=== PATIENT | female | born 1950 | race Caucasian/White ===

== ENCOUNTER 2025-09-14 09:36 | Outpatient (REF) | payer MEDICARE, SELFPAY ==
--- NOTE | ~2025-09-14 | XR_ITS ---
EXAMINATION: XR CERVICAL SPINE CLINICAL INFORMATION: M50.90 - Cervical disc disorder, unspecified, unspecified cervical region COMPARISON: None available. TECHNIQUE: Lateral views in neutral, flexion and extension position. AP view. FINDINGS: Craniocervical junction is intact with normal alignment. Metallic plate placed anteriorly and anchored to the vertebral bodies from C4 C7. Grade 1 anterolisthesis L3-4 in neutral position which persists in flexion and extension position. No lytic or blastic lesions. Multilevel facet joint hypertrophy. XR/XR cervical spine 4V IMPRESSION: Status post ACDF C4 C7. Grade 1 anterolisthesis C3-4 without gross instability. Electronically signed by: Clive Avery MD 09/14/2025 11:50 AM EDT
--- OUTSIDE RECORDS SUMMARY | 2025-09-14 13:06 | XMS_ITS | Data Portability ---
Author Organization BERTHA Sung [facility], [address] Address [address] [place] [address] Assessment No assessment recorded. Plan of Treatment Reminders Order Date Submit Date Provider Last Modified By Organization Details Last Modified Time Details Appointments None record ed. Lab None record ed. Referral None record ed. Procedures None record ed. Surgeries None record ed. Imaging XR, toe(s) , 2 or more view 023 04/05/20 23 [facility], [address] [place], [address], 13:51:25 Medication Orders None record ed. Patient TargetsNo targets recorded. Patient InstructionsNo instructions recorded. Reason for Referral None Reported. Results Created Date Observation Date Name Description Value Unit Range Abnormal Flag Note LastModifiedBy Organization Detail LastModifiedTime 04/05/20 23 04/05/2023 XR, toe(s ), 2 or more view No observ ation record ed. [email or web address] [facility] [address] [place], [address], 04/05/2023 14:30:44 04/06/20 23 XR, toe(s ), 2 or more view No observ ation record ed. [email or web address] [facility] [address] [place], [address], 04/06/2023 09:08:26 Result Notes None recorded. Problems Name Problem SNOMED Code Status Onset Date Resolution Date Notes Provider Name and Address Organization Details Recorded Time Depressive disorder 12390279 Active 2022 BER[facility]A [facility] 3 12:04:52 Arthritis 2824887 Active 2022 GOLDEN mandujano, [place] - [facility] 3 12:05:06 Hyperlipidemia 80840137 Active 2022 GOLDEN mandujano, [place] - [facility] 3 12:05:16 Problem Notes None recorded. Procedures Surgical History Date Name Laterality Status Provider Name and Address Organization Details Recorded Time total knee replacement completed GOLDEN CARDENAS PA - [facility] 04/05/2023 12:06:47 Carpal tunnel surgery completed [facility] - [facility] 04/05/2023 12:06:53 Imaging Results None recorded. Procedure Notes None recorded. Medical Equipment None Reported. Allergies Allergen ID Allergen Name Allergen Category Reaction Reaction Severity Criticality Documentation Date Start Date Code Code System Note Provider Name and Address Organization Details Recorded Time 263348 Norpramin medicatio n Not available Not available Not available 04/05/202398245 1 RxNorm GOLDEN mandujano, [place] - [facility] 3 12:03:05 Medications Name Sig Start Date Stop Date Status Note LastModified by Organization Details LastModified Time quetiapine 25 mg tablet active Not Available Not Available Not Available atorvastati n 40 mg tablet active Not Available Not Available Not Available gabapentin 600 mg tablet active Not Available Not Available Not Available triamcinolo ne acetonide 0.5 % topical cream APPLY TOPICALLY TO UPPER ARM EVERY 8 HOURS active Not Available Not Available No t Available azithromyci n 250 mg tablet 04/05 completed Not Available Not Available Not Available prednisone 20 mg tablet TAKE 3 TABLETS BY MOUTH DAILY FOR 5 DAYS THEN TAKE 2 TABLETS BY MOUTH DAILY FOR 5 DAYS THEN TAKE 1 TABLET BY MOUTH DAILY FOR 5 DAYS 04/05 completed Not Available Not Available Not Available amoxicillin 500 mg tablet TAKE 4 TABLETS BY MOUTH 1 HOUR BEFORE DENTAL APPOINTME NT 04/05 completed Not Available Not Available Not Available hydroxyzine HCl 25 mg tablet TAKE 1 TABLET BY MOUTH AT NIGHT AND IN THE MORNING NEEDED active Not Available Not Available No t Available epinephrine 0.3 mg/0.3 mL injection, auto-inject or active Not Available Not Available Not Available fluocinonid e 0.05 % topical solution APPLY TOPICALLY TO THE AFFECTED AREA TWICE DAILY FOR 2 WEEKS 04/05 completed Not Available Not Available Not Available scopolamine 1 mg over 3 days transdermal patch APPLY 1 PATCH TOPICALLY TO THE SKIN EVERY 72 HOURS active Not Available Not Available No t Available ciclopirox 1 % shampoo LATHER ON SCALP AND LET SIT FOR 5 MINUTES THEN WASH OFF. USE DAILY active Not Available Not Available No t Available bupropion HCl XL 300 mg 24 hr tablet, extended release active Not Available Not Available Not Available clobetasol 0.05 % shampoo APPLY TO DRY SCALP FOR 10 MINUTES THEN ADD WATER, LATHER AND RINSE OFF. USE TWO TIMES A DAY NEEDED active Not Available Not Available No t Available mirtazapine 7.5 mg tablet 04/05 completed Not Available Not Available Not Available duloxetine 30 mg capsule,del ayed release active Not Available Not Available Not Available duloxetine 60 mg capsule,del ayed release active Not Available Not Available Not Available chlorhexidi ne gluconate 0.12 % mouthwash active Not Available Not Available No t Available Vitals Date Recorded Body height Body mass index (BMI) Body weight Body temperature Respiratory rate Heart rate Oxygen saturation Oxygen saturation in Arterial blood by Pulse oximetry Systolic And Diastolic Provider Name and Address Organization Details Last Updated DateTime 3 157.48 cm 27.4 kg/m2 73492.8 6 g 98.2 [degF] 18 /min 68 /min 97 % 97 % 135/84 mm[Hg] GOLDEN Frye PA - [facility] 12:08:23 Social History Question Answer Notes LastModified by Terabitzat ion Details LastModified Time Tobacco Smoking Status Never Smoker GOLDEN mandujano PA - [facility] 04/05/2023 12:06:11 What Is Your Water Source? City Information not available 04/05/2023 What Is Your Heat Source? Other Information not available 04/05/2023 Have You Had Direct Contact, Or Contact During Intimacy, With Monkeypox Rash, Scabs, Or Body Fluids From A Person With Monkeypox? No Information not available 04/05/2023 Have You Recently Traveled Abroad? No Information not available 04/05/2023 Sex: Unknown Functional Status Question Answer Note LastModified by Organizat ion Details LastModified Time Do you use any illicit or recreational drugs? No Information not available 04/05/2023 Do you or have you ever used any other forms of tobacco or nicotine? No Information not available 04/05/2023 What is your level of alcohol consumption? None Information not available 04/05/2023 Mental Status None recorded. Family History Relationship Description Onset Age of this Age Resolved Age Notes LastModified by Organization Details LastModified Time Brother Acute stroke Not available 04/05/2023 12:05:49 Father Arthritis Not avai lable 04/05/2023 12:06:02 Mother Arthritis Not avai lable 04/05/2023 12:06:02 Medical History No medical history recorded. Gynecological HistoryNo gynecological history recorded. Obstetrics History GPAL:G 0 P 0 0 0 0 Past Encounters Encounter ID Performer Location Encounter Start Date Encounter Closed Date Diagnosis/Indication Diagnosis SNOMED-CT Code Diagnosis ICD10 Code Diagnosis IMO Codes Diagnosis Note [id number] [facility] [address] [place] [address] 12/23/2017 09:27:16 12/23/2017 10:10:41 [id number] [address] [place] [address] 08/04/2022 10:14:13 08/04/2022 12:12:34 [id number] [address] [place] [address] 09/30/2019 14:08:49 09/30/2019 14:31:52 [id number] [address] [place] [address] 04/16/2022 11:00:26 04/16/2022 12:55:50 [id number] Maria Espinosa MD [address] [place] [address] 04/05/2023 09:52:04 04/05/2023 13:07:09 Pain of toe of left foot 4728026481 78851 M79.675 Initial reading of the Xray shows no acute fractureYo ur x-ray will be reviewed by a radiologis t. You will be notified of any discrepanc ies between findings discussed at your visit today and the radiology interpreta tion.Sugge st rest, Ice and elevate the foot.You can take either ibuprofen or tylenol for pain as directedTh ere could be bleeding under the nail which has now coagulated . this may be causing the pain and will get better with elevation, Ibuprofen and time Health Concerns Section Related Observation LastModified by Organization Detai ls LastModified Time None Recorded Concern Status LastModified by Organization Details LastModified Time None Recorded Advance Directives Directive None Recorded Payers Insurance Date Sequence Insurance Name Policy Number Policy Martins Covered Member ID Martins Member ID Guarantor Name 04/05/2023 1 [place] [employer] Patti Devine [id number] Patti Devine 04/05/2023 2 A[employer] (MEDICARE SUPPLEMENT) Patti Devine [id number] Patti Devine Notes Date Note Type Note Provider Name and Address Organization Details Recorded Time 04/05/2023 text/html ToesReported by PatientHPIFor location, patient reportsleft. For quality, patient reportssharp. For severity, patient reportsmoderate. For timing, patient reportsacute. For aggravating factors, patient reportswalking. Maria Espinosa MD [address] [place], [address], [place] - [facility] 04/05/2023 13:11:26 OBGyn Episode No OBEpisode recorded.
--- OUTSIDE RECORDS SUMMARY | 2025-09-14 13:06 | XMS_ITS | Data Portability ---
Author Organization [place] [facility] Shayla Shepherd [address] [place] Address [address] [place] [address] Care Team Providers Care Cap And Stud Machine Operator Name Role Phone RHEA PADRON Referring Provider Assessment Encounter Date Assessment Date Assessment LastModified [...] for repeat assessment for injection efficacy check [email or web address] Not available 05/25/2024 11:07:02 08/03/2024 08/03/2024 The [...] physical examination, tests/diagnostic imaging, and treatment plan [email or web address] Not available 08/03/2024 11:13:07 11/09/2024 11/09/2024 73-year-old [...] may be helpful for control of swelling. [id number] anti-inflammator y medications with appropriate GI precautions [...] 3 view 2023 024 [email or web address] [facility] [place] [facility], [address], [place], [address], 13:57:22 XR, foot, 3 or more view 2023 024 [email or web address] [facility] [place] [facility], [address], [place], [address], 12:30:51 Medication Orders meloxicam 15 mg tablet 2023 024 [facility], [address] [place], [place], [id number], 4 13:52:33 lidocaine (PF) 10 mg/mL (1 %) injection solution 2023 024 [facility]97241, [address] [place], [place], [id number], 4 12:30:51 triamcinolo ne acetonide 40 mg/mL suspension for injection 2023 024 [email or web address] [facility]10747, [address] [place], [place], [id number], 4 12:30:51 Patient TargetsNo targets recorded. Patient InstructionsNo instructions recorded. Reason for Referral None Reported. Problems Name Problem SNOMED Code Status Onset Date Resolution Date Notes Provider Name and Address Organization Details Recorded Time Primary gonarthro sis, bilateral 477151159 Active 2018 Primary osteoarth ritis of both knees Not Available [facility] 5 23:59:17 Pain of knee region 1207597178 Active 2018 Chronic pain of left knee Not Available [facility] 5 23:59:17 Arthritis of joint of toe 591421707 Active 2023 OMKAR LEON PA-C [address], [place], [address] , [place] [facility] [place] 4 12:26:32 Contusion of right knee 49934145984 718495 Active 2023 ORLY COTTER PA-C [address], [place], [address] , [place] [facility] [place] 4 13:51:09 Osteoarth ritis of right knee joint 64716142299 9100 Active 2023 ORLY COTTER PA-C [address], [place], [address] , [facility] [place], [facility] 4 16:56:53 Problem Notes None recorded. Procedures Surgical History Date Name Laterality Status Provider Name and Address Organization Details Recorded Time 4 AJF Foot Inj completed OMKAR LEON PA-C [address], [place], [address], [facility], P 05/25/2024 11:22:03 9 total knee replacement completed [facility], [facility] 05/25/2024 11:31:22 Head or Neck Surgery completed [facility], P 05/25/2024 11:28:39 endoscopic carpal tunnel release completed Nesha Rojo [facility], P 11/09/2024 13:23:40 Imaging Results None recorded. Procedure Notes None recorded. Medical Equipment None Reported. Allergies Allergen ID Allergen Name Allergen Category Reaction Reaction Severity Criticality Documentation Date Start Date Code Code System Note Provider Name and Address Organization Details Recorded Time 300521 buprenorp nereyda / naloxone medicatio n Not available Not available Not available 08/21/20252018 46416 4 RxNorm Not Available [facility] 5 01:30:09 953815 oxymorpho ne medicatio n Not available Not available Not available 08/21/20252018 7814 RxNorm Not Available [facility] 5 01:30:10 005362 desiprami ne medicatio n Not available Not available Not available 08/21/20252018 3247 RxNorm Not Available [facility] 5 01:30:10 Norpramin medicatio n Not available Not available Not available 11/09/202495566 1 RxNorm Nesha Rojo [facility], P 4 13:22:44 Medications Name Sig Start [...] Not Available Not Available Not Available multivit-mi [id number] it K-Q10 active Not Available Not Available Not Available Vitals Date Recorded Body height Body mass index (BMI) Body weight Provider Name and Address Organization Details Last Updated DateTime 05/25/2024 157.48 cm 27.1 kg/m2 [address].[address] [place] [facility] [place] 05/25/2024 11:24:30 Date Recorded Body height Body mass index (BMI) Body weight Provider Name and Address Organization Details Last Updated DateTime 08/03/2024 157.48 cm 27.1 kg/m2 [address] [place] [facility] [place], [facility] 08/03/2024 10:54:56 Date Recorded Body height Body mass index (BMI) Body weight Provider Name and Address Organization Details Last Updated DateTime 11/09/2024 157.48 cm 26.9 kg/m2 11190.[address] [place] [facility] [place], [facility] 11/09/2024 13:22:51 Social History None recorded. Functional Status Question Answer Note LastModified by Organizat ion Details LastModified Time Do you use any illicit or recreational drugs? No [email or web address] Information not available 11/09/2024 What is your level of alcohol consumption? None [email or web address] Information not available 11/09/2024 Are you currently employed? No Information not available 11/09/2024 Mental Status None recorded. Family History Relationship Description Onset Age of this Age Resolved Age Notes LastModified by Organization Details LastModified Time Father Arthritis [email or web address] Not availabl e 05/25/2024 11:25:18 Father History of cancer of unknown primary site [email or web address] Not available 11:25:39 Father Hypertensive disorder [email or web address] Not available 2023 11:26:13 Father Hyperlipidem ia Not available 2023 11:26:50 Brother Arthritis [email or web address] Not availab le 05/25/2024 11:25:18 Brother Family history of stroke [email or web address] Not available 2023 11:26:33 Brother Hyperlipidem ia [email or web address] Not available 2023 11:26:50 Mother Arthritis [email or web address] Not availabl e 05/25/2024 11:25:18 Mother History of hypertension [email or web address] Not available 11:27:25 Mother Scoliosis deformity of spine [email or web address] Not available 2023 11:27:37 Sister Arthritis [email or web address] Not availabl e 05/25/2024 11:25:18 Medical History Condition Response Anemia Y Gynecological HistoryNo gynecological history recorded. Obstetrics History GPAL:G 0 P 0 0 0 0 Past Encounters Encounter ID Performer Location Encounter Start Date Encounter Closed Date Diagnosis/Indication Diagnosis SNOMED-CT Code Diagnosis ICD10 Code Diagnosis IMO Codes Diagnosis Note [id number] CLAIR PARKS [place] [address] [address] 05/25/2024 10:30:35 05/25/2024 11:08:35 Pain in right foot 2643449901 75174 M79.671 Arthritis of joint of toe 293695688 M19.079 Additional diagnosis detail: 1st MTP arthritis [id number] [facility] [address] [place] [address] 08/03/2024 10:46:30 08/03/2024 11:12:28 Arthritis of joint of toe 391163292 M19.079 Additional diagnosis detail: 1st MTP arthritis [id number] CLAIR BARBOSA [facility] [address] [facility],[address] [place] [address] 11/09/2024 12:48:18 11/09/2024 13:57:22 Pain of right knee region 0069212307 28452 M25.561 56701612 History of fall 94804607 9 Z91.81 4299944 Contusion of right knee 2044351928 1547942 S80.01XA 092219 Osteoarthr itis of right knee joint 9961761536 51341 M17.11 2971138 Health Concerns Section Related Observation LastModified by [...] OMKAR LEON PA-C [address], [place], [address], [place] [facility] [place] 05/25/2024 12:26:52 08/03/2024 text/html Patti Devine [...] OMKAR LEON PA-C [address], [place], [address], [place] [facility] [place], [facility] 08/03/2024 11:13:17 11/09/2024 text/html ROS as [...] ORLY COTTER PA-C [address], [place], [address], [place] [facility] [place] 11/09/2024 16:59:31 OBGyn Episode No OBEpisode recorded.
== END 2025-09-14 09:37 | disposition home or self-care (01) ==
LOC: HO.HOSX 09:36
PROVIDERS: PCP Internal Medicine; Referring Provider Physical Medicine & Rehabilitation; Visit Provider Physician Assistant
DX: M50.90 Cervical disc disorder, unspecified, unspecified cervical region (principal)
CPT/HCPCS: 72050; 99202

== ENCOUNTER 2025-09-14 09:36 | Outpatient (AMB) | payer MEDICARE, SELFPAY ==
[2025-09-14 10:05] VITALS: BMI 26.9
--- NOTE | 2025-09-14 10:05 | A.SPINEOV_ITS ---
Vital Signs 09/14/25 10:05 Height 5 ft 2 in Weight 147 lb BMI 26.9 Intake Visit Reasons: cervical radiculopathy Intake Note: Ms. Devine is here today cc neck and shoulder pain. Potato Chip Fryer Required: No Allergies buprenorphine (From SUBOXONE) Allergy (Unknown, Verified 09/14/25 10:06) STOMACH UPSET desipramine (From NORPRAMIN) Allergy (Unknown, Verified 09/14/25 10:06) HIVES naloxone (From SUBOXONE) Allergy (Unknown, Verified 09/14/25 10:06) STOMACH UPSET Physical Exam Vital Signs: BMI result Body Mass Index 26.9 Assessment & Plan Assessment & Plan (1) Cervical disc disorder: Code(s): M50.90 - Cervical disc disorder, unspecified, unspecified cervical region Category: Medical Plan Dear Deamichael Guevara and Dr Street, Thank you for referring Mrs Devine to our office today. She is a very nice 74-year-old female with a complicated spinal history including anterior cervical fusion C4-7 done in 2007, also has a history of a T12-S1 spinal fusion correction of what sounds like scoliosis done in 2010, who has had 2 years a progressive worsening of her neck pain, it is on both sides of the upper ce rvical spine, right greater than left. She has been through conservative treatment for this including multiple medication trials including buprenorphine patches, duloxetine, celecoxib as well as gabapentin. She has also been through local trigger point injections without much help. She has also had physical therapy. 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 At this time she has no meaningful complaints of arm pain, tingling numbness, fine motor movement issues. She does have gait imbalance but that is a combination of factors from her lumbar surgeries and arthritic knees. PMH: Most of her medical history is related to orthopedic issues, including her extensive spinal history as outlined above, she has also had bilateral carpal tunnel release, arthroscopy to both knees, bunionectomy, basal cell carcinoma resection, left total knee replacement, spinal cord stimulator implant, kidney stone removal. No history of cardiovascular disease. She does report that she has some kind of issue with low oxygenation at night for which she uses home O2 occasionally. I specifically asked her if this was obstructive sleep apnea and she tells me that she was never given a CPAP machine or told she has that diagnosis, but rather just told to use oxygen at nighttime. She has a history of eczema, GERD, fibromyalgia. There is no history of COPD. She has no liver or renal disorders, bleeding disorders, blood clots, major abdominal surgeries or unusual infections. Social hx: She does not smoke, drink use any recreational drugs Medications: Bupropion, duloxetine, Celebrex, atorvastatin, quetiapine, gabapentin, desonide, tacrolimus ointment, clobetasol shampoo, hydroxyzine, multivitamin, Nexium, loratadine, magnesium, baby aspirin, Tylenol, vitamin D3, vitamin-B, coenzyme Q10 and turmeric Allergies: Please see the [facility] - [facility] Tracking list Physical exam: There is a well healed scar in the right side of her neck from her anterior cervical fusion. Awake alert oriented, able to stand up on her own ambulate down the hallway with antalgic gait. Unable to test tandem gait walking secondary to knee pain and arthritis. Strength in the upper extremities is full. She has some mild right iliopsoas weakness. Reflexes are normal to diminished in the upper extremities, absent in the lower extremities. No Andrews's sign, no clonus. Imaging review: Cervical MRI done at [facility] reveals solid fusion from C4-7, there is significant subluxation of C3 on C4 as well as C7 on T1. There is moderate to severe stenosis. There is no cord signal change. 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 She has moderate to severe spinal cord compression at C3-4. I sent the patient for flexion-extension x-rays. This shows some bony overgrowth in the anterior aspect of the lower vertebral body of C3. There is a significant anterior translation in the neutral position, but I do not see significant walker e with flexion or extension, so I do not think it is overtly unstable. I think it is slowly and chronically been changing position over time due to the stress of the 3 level fusion below. C7-T1 has similar findings but there is no cord compression at that level. I think most of her symptoms are coming from the upper level given that her symptoms are high in the cervical spine and near the skull base. Typically when there is this degree of spondylolisthesis, Dr. Mcgee will use a plate to stabilize the segment. That would require us removing the old plate which may be a much more involved procedure because of the length of the construct. I would like to review this with him and get a final plan in place, but I suspect she is going to need this fixed. Thankfully she has no overt myelopathic symptoms at this time. Once I have a final plan in place I will call her to update her. She has requested ever going to be in there fixing C3-4, can we also fix C7-T1 at the same time. I will review this with Dr. Mcgee and see if he thinks it is feasible or if they will have to be done at a separate time. Thank you for allowing us to care for your patient. The total time spent with this visit with this patient was 45 minutes reviewing history, physical exam, cervical imaging review, and implementation of treatment plan or further diagnostic testing Vernon Mcgee MD,PhD [facility] Orders: Orders XR cervical spine 4V Today M50.90 - Cervical disc disorder, unspecified, unspecified cervical region Coding Level of Care Code New Pt Level 4 (50495) Diagnoses Cervical disc disorder M50.90
--- OUTSIDE RECORDS SUMMARY | 2025-09-14 10:56 | XMS_ITS | Encounter Summary ---
Author Organization [facility] Address [address] [place] [address] Care Team Providers Care Pediatrics Teacher Name Role Phone Taras Shelton MD Primary Care Provider [phone] Taras Shelton MD Unavailable [phone] Meredith Liana DO Unavailable [phone] Encounter Details Date Type Department Care Team (Late st Contact Info) Description 04/18/2009 Hospital Visit [facility] OUTPATIENT Ashvin Lambert MD [address] [place] [address] [address] [place] [address] Social History Tobacco Use Types Packs/Day Years Used Date Smoking Tobacco: Never Assessed Comments Unknown Sex and Gender Information Value Date Recorded Sex Assigned at Not on file Legal Sex Female 6:51 AM EST Gender Identity Not on file Sexual Orientation Not on file documented as of this encounter Plan of Treatment Not on file documented as of this encounter Procedures Procedure Name Priority Date/Time Associated Diagnosis Comments GLOMERULAR FILTRATION RATE ESTIMATED Routine 04/25/2009 2:10 PM EDT BLOOD TYPE + SCREEN EXTENDED SPECIMEN Routine 04/25/2009 2:10 PM EDT CBC + DIFFERENTIAL Routine 04/25/2009 2: 10 PM EDT BASIC METABOLIC PANEL Routine 04/25/2009 2:10 PM EDT documented in this encounter Results * ESTIMATED GLOMERULAR FILTRATION RATE (04/25/2009 2:10 PM EDT) [facility] EGFR Non- > 60 >60 [facility] EGFR > 60 >60 [facility] Comment: -- eGFR UNITS OF MEASURE -- mL/min/1.73m(2) Comment EGFR SEE BELOW [facility] Comment: Clinical use of the eGFR result is not recommended if; - the patient's basal creatinine production is very abnormal, such as extremes of body size or muscle mass (eg. obese, severely malnourished, amputees, parapalegics, or other muscle-wasting diseases). - the patient has an unusual dietary intake (eg. vegetarian, creatine supplements). - the patient has an unstable creatinine level (eg. women, patients with serious co-morbid conditions, and hospitalized patients, particularly those with acute renal failure). 04/25/2009 2:10 PM EDT 04/25/2009 3:37 PM EDT Ashvin Lambert MD CHEMISTRY ORDERABLES Final Resu lt Performing Organization Address [facility] de Phone Number [address], [address] [address] * TYPE AND SCREEN-30 DAY (04/25/2009 2:10 PM EDT) [facility] Results Blood Bank SEE BELOW [facility] Comment: TYPE AND SCREEN 30-DAY: -TYPE A NEG -ANTIBODY SCREEN NEGATIVE 04/25/2009 2:10 PM EDT 04/25/2009 3:37 PM EDT Ashvin Lambert MD BLOOD BANK ORDERABLES Final Res ult Performing Organization Address [facility] de Phone Number [address], [address] [place] [address] * (ABNORMAL) CBC WITH DIFF (04/25/2009 2:10 PM EDT) White Blood Count 4.5 4.2 - 10.2 Thou/uL [facility] Erythrocytes 3.83 3.80 - 5.10 Mil/uL [facility] Hemoglobin 11.5(L) 11.8 - 15.8 g/dL [facility] Hematocrit 36.0 35.0 - 47.0 % [facility] Mean Corpuscular Volume 94.0 80.0 - 100.0 fL [facility] Mean Corpuscular Hemoglobin 30.0 26.0 - 34.0 pg [facility] Mean Corpuscular Hemoglobin Conc 31.9(L) 32.0 - 36.0 g/dL [facility] Platelet Count 253 140 - 440 Thou/uL [facility] Erythrocyte Distribution Width SD 44.2 37.0 - 48.0 fL [facility] Erythrocyte Distribution Width CV 12.9 12.0 - 14.6 % [facility] Polymorphonuclear Percent 45(L) 47 - 80 % [facility] Lymphocytes Percent 47(H) 14 - 46 % [facility] Monocytes Percent 6 5 - 12 % [facility] Basophils Percent 0 0 - 2 % [facility] Eosinophils Percent 2 0 - 5 % [facility] Neutrophils Absolute 1.99(L) 2.40 - 7.60 Thou/uL [facility] Lymphocytes Absolute 2.10 1.00 - 3.30 Thou/uL [facility] Monocytes Absolute 0.25(L) 0.30 - 0.90 Thou/uL [facility] Basophils Absolute 0.01 0.00 - 0.12 Thou/uL [facility] Eosinophils Absolute 0.10 0.00 - 0.40 Thou/uL [facility] 04/25/2009 2:10 PM EDT 04/25/2009 3:37 PM EDT us Ashvin Lambert MD HEMATOLOGY ORDERABLES Final Res ult [facility] [address], [address] [place] [address] * BASIC METABOLIC PANEL (04/25/2009 2:10 PM EDT) Sodium 143 133 - 145 mEq/L [facility] Potassium Plasma 4.2 3.3 - 5.3 mEq/L [facility] Chloride 105 96 - 108 mEq/L [facility] Carbon Dioxide 29 22 - 29 mEq/L [facility] Anion Gap 9 7 - 16 [facility] Glucose 99 70 - 105 mg/dL [facility] Blood Urea Nitrogen 11 6 - 19 mg/dL [facility] Creatinine 0.66 0.50 - 1.30 mg/dL [facility] BUN Creatinine Ratio 16.7 [facility] Calcium 9.5 8.6 - 10.4 mg/dL [facility] 04/25/2009 2:10 PM EDT 04/25/2009 3:37 PM EDT us Ashvin Lambert MD CHEMISTRY ORDERABLES Final Resu lt [facility] [address], [address] [place] [address] documented in this encounter Visit Diagnoses Not on filedocumented in this encounter Care Teams Pediatrics Teacher Relationship Specialty Start Date End Date Taras Shelton MD [address] [place] [address] PCP - General 06/28/08 Taras Shelton MD [address] [place] [address] PCP - Hospital (change to care team) 09/30/09 08/18/16 Liana Harper DO [address] [place] [phone] PCP - Neuromusculoskeletal Med and OMM (change to care team) 04/14/11 07/01/16 documented as of this encounter
--- OUTSIDE RECORDS SUMMARY | 2025-09-14 10:56 | XMS_ITS | Clinical Summary ---
Author Organization [facility] Address [address] [place] [address] Care Team Providers Care Welding Process Engineer Name Role Phone Taras Shelton MD Primary Care Provider Medications No known medications Active Problems No known active problems Immunizations Immunization Administration Dates Next Due Pfizer Purple Cap(12+) Covid -19,mrna,lnp-s,pf,0.3ml ([id number]) 02/17/2021,01/27/2021 Social History Tobacco Use Types Packs/Day Years Used Date Smoking Tobacco: Never Assessed Comments Unknown Sex and Gender Information Value Date Recorded Sex Assigned at Not on file Legal Sex Female 6:51 AM EST Gender Identity Not on file Sexual Orientation Not on file Plan of Treatment Health Maintenance Due Date Last Done Comments Depression Screening 1962 Colonoscopy 1968 Colorectal Cancer Screening 1968 Hepatitis C Screening 1968 TDAP/TD Vaccine 18+ 1968 CT Colonography 1970 FIT 1970 Sigmoidoscopy 1970 Stool DNA 1970 Breast Cancer Screening 1980 Lipid Screening 1985 Herpes Zoster Vaccine (1 of 2) 2000 Pneumococcal: 50 + Immunizat ion Scheduling (1 of 1 - PCV) 2000 Fall Risk Assessment 2015 Osteoporosis Screening 2015 COVID-19 Vaccine ( season) 2024, 01/27/2021 Influenza Vaccine (#1) 2025 Care Teams Welding Process Engineer Relationship Specialty Start Date End Date Taras Shelton MD [address] [place] [id number] PCP - General 06/28/08
--- OUTSIDE RECORDS SUMMARY | 2025-09-14 10:56 | XMS_ITS | Encounter Summary ---
Author Organization [facility] Address [address] [place] [address] Care Team Providers Care Superintendent Generating Plant Name Role Phone Taars Shelton MD Primary Care Provider [phone] Taras Shelton MD Unavailable [phone] Meredith Liana DO Unavailable [phone] Encounter Details Date Type Department Care Team (Late st Contact Info) Description 12/18/2008 Hospital Visit [facility] OUTPATIENT Ashvin Lambert MD [address] [place] [address] Dr [address] [place] [address] Social History Tobacco Use Types Packs/Day Years [...] Procedure Name Priority Date/Time Associated Diagnosis Comments XR C SPINE 4-6 VIEWS 12/18/2008 8:12 AM EST documented in this encounter Results * XR C SPINE 4-6 VIEWS (12/18/2008 8:12 AM EST) Anatomical Region Laterality Modality C-spine Other 12/18/2008 8:12 AM EST Narrative 12/18/2008 10:32 AM EST DATE: 12/18/2008 8:12 ORDERED EXAM: CERVICAL SPINE EXAM: PA AND LATERAL VIEWS OF THE CERVICAL SPINE INCLUDING FLEXION/EXTENSION 12/18/08 INDICATION: 58-year-old female status post prior cervical fusion. COMPARISON: Prior exam of 06/28/08 is availablefor review. FINDINGS: The patient is again demonstrated to be status post anterior Scott Bar plate and screw fixation transfixing C4, C5, C6 and C7 with interposed bone grafts. The alignment through the fused region appears unchanged. There is mild anterolisthesis C3 upon C4 and C7 upon T1 in neutral position. With flexion, this is slightly accentuated at the C3-4 level, and with extension, this is slightly reduced at the C3-4 level. Note at the C7-T1 level, no significant interval change in alignment. There is also mild anterolisthesis of C2 upon C3 with flexion. IMPRESSION: 1. Patient is again demonstrated to be status post fusion C4 through C7 as detailed. The fused vertebral segment appears unchanged. There is subtle motion at the C3-4 level with flexion and extension. Approved Result / Electronically Signed by DON CIFUENTES 18-Dec-2008 16:37 end of result Ashvin Lambert MD IMG DIAGNOSTIC IMAGING ORDERABL ES Final Result documented in this encounter Visit Diagnoses Not on filedocumented in this encounter Care Teams Superintendent Generating Plant Relationship Specialty Start Date End Date Taras hSelton MD [address] [place] [address] PCP - General 06/28/08 Taras Shelton MD [address] [place] [address] PCP - Hospital (change to care team) 09/30/09 08/18/16 Liana Harper DO [address] [place] [phone] PCP - Neuromusculoskeletal Med and OMM (change to care team) 04/14/11 07/01/16 documented as of this encounter
--- OUTSIDE RECORDS SUMMARY | 2025-09-14 10:56 | XMS_ITS | Data Portability ---
Author Organization [place] [facility] Shayla Shepherd [place] Address [address] [place] [address] Care Team Providers Care Control Equipment Electrician Name Role Phone RHEA PADRON Referring Provider [phone] Assessment Encounter Date Assessment Date Assessment LastModified by Organization Details LastModified Time 05/25/2024 05/25/2024 She has severe first MTP arthritis. We discussed the nature of this diagnosis at length today. We discussed conservative measures such as topical creams, hard soled shoes, activity modification and cortisone injections. We also discussed surgical intervention. She would like to attempt a cortisone injection today. This was performed sterilely and without difficulty. we also discussed surgery and what this would entail such as first MTP fusion with also correction of her second and third toe deformities. This is something that she is interested in but would like to hold off for now. Follow-up in 3 weeks for repeat assessment for injection efficacy check [email or web address] Not available 05/25/2024 11:07:02 08/03/2024 08/03/2024 The injection was very helpful for her right foot hallux rigidus. We will continue to monitor her symptoms. We can certainly perform another injection as needed and can move forward with surgical intervention as desired. She will call the office on an as-needed basis at this time. Patient was seen and evaluated by Omkar Leon PA-C in indirect conjunction with Documenting Provider: Marichuy Jain MD He/She agrees with history, physical examination, tests/diagnostic imaging, and treatment plan [email or web address] Not available 08/03/2024 11:13:07 11/09/2024 11/09/2024 73-year-old female 5 days status post fall. She suffered a direct blow to the right knee resulting in anterior contusion with significant underlying degenerative changes. Cannot exclude possible meniscal tearing, however her exam is nonspecific for this today. I reviewed my findings with her and we discussed treatment options. I will send her in a prescription for meloxicam. GI precautions reviewed. Encouraged frequent icing and elevation. Questions invited and answered. Patient verbalizes understanding and agreement with plan. We reviewed the natural history of osteoarthritis. I used diagrams and a model to demonstrate the areas of arthritic change. The patient understands that symptoms may progress over time requiring further intervention. We discussed in detail available treatment options. We discussed activity modification, especially avoiding impact type activities. We discussed the need for an ongoing maintenance flexibility and strengthening program. This should involve the core musculature, the hip, as well as the quadriceps and hamstrings. Intermittent icing 20 minutes off 3 to 4 times a day with the skin protected may be helpful for control of swelling. Kfgp-gnf-zalogat anti-inflammator y medications with appropriate GI precautions or Tylenol may be helpful in controlling intermittent symptoms of pain. An assistive device such as a cane may be helpful in unloading the joint. We also discussed other interventions including therapeutic injections. We discussed varieties of injections including cortisone, viscosupplementa tion, and PRP. We also discussed the possibility of surgical intervention if symptoms persist. We discussed arthroscopic intervention as well as total knee arthroplasty. [email or web address] Not available 11/09/2024 16:58:51 Plan of Treatment Reminders Order Date Submit Date Provider Last Modified By Organization Details Last Modified Time Details Appointments None recorded. Lab None recorded. Referral None recorded. Procedures None recorded. Surgeries None recorded. Imaging XR, knee, 3 view 2023 024 [email or web address], [address], [place], [address], 13:57:22 XR, foot, 3 or more view 2023 024 [email or web address] [facility], [address], [place], [address], 12:30:51 Medication Orders meloxicam 15 mg tablet 2023 024 [id number], [address], [place], [id number], 4 13:52:33 lidocaine (PF) 10 mg/mL (1 %) injection solution [address] [facility][id number], [address], [place], [id number], 4 12:30:51 triamcinolo ne acetonide 40 mg/mL suspension for injection [email or web address] [facility] #[id number], [address], [place], [id number], 4 12:30:51 Patient TargetsNo targets recorded. Patient InstructionsNo instructions recorded. Reason for Referral None Reported. Problems Name Problem SNOMED Code Status Onset Date Resolution Date Notes Provider Name and Address Organization Details Recorded Time Primary gonarthro sis, bilateral 996195678 Active 2018 Primary osteoarth ritis of both knees Not Available [facility] 5 23:59:17 Pain of knee region 7262405915 Active 2018 Chronic pain of left knee Not Available [facility] 5 23:59:17 Arthritis of joint of toe 426058825 Active 2023 OMKAR LEON PA-C [address], [place], [address] , [place] [facility] 4 12:26:32 Contusion of right knee 76140209281 600455 Active 2023 ORLY COTTER PA-C [address], [place], [address] , [place] [facility] 4 13:51:09 Osteoarth ritis of right knee joint 90087771750 9100 Active 2023 ORLY COTTER PA-C [address], [place], [address] , [facility] 4 16:56:53 Problem Notes None recorded. Procedures Surgical History Date Name Laterality Status Provider Name and Address Organization Details Recorded Time 4 AJF Foot Inj completed OMKAR LEON PA-C [address], [place], [address], [facility], [facility] 05/25/2024 11:22:03 9 total knee replacement completed [facility], [facility] 05/25/2024 11:31:22 Head or Neck Surgery completed [facility], [facility] 05/25/2024 11:28:39 endoscopic carpal tunnel release completed Nesha Rojo [facility], P 11/09/2024 13:23:40 Imaging Results None recorded. Procedure Notes None recorded. Medical Equipment None Reported. Allergies Allergen ID Allergen Name Allergen Category Reaction Reaction Severity Criticality Documentation Date Start Date Code Code System Note Provider Name and Address Organization Details Recorded Time 255060 buprenorp nereyda / naloxone medicatio n Not available Not available Not available 08/21/20252018 92053 4 RxNorm Not Available [facility] 5 01:30:09 711206 oxymorpho ne medicatio n Not available Not available Not available 08/21/20252018 7814 RxNorm Not Available [facility] 5 01:30:10 425416 desiprami ne medicatio n Not available Not available Not available 08/21/20252018 3247 RxNorm Not Available [facility] 5 01:30:10 Norpramin medicatio n Not available Not available Not available 11/09/202461974 1 RxNorm Nesha Rojo [facility], [facility] 4 13:22:44 Medications Name Sig Start Date Stop Date Status Note LastModified by Organization Details LastModified Time nystatin/li docaine/dex ameth/antac i SHAKE WELL AND USE 1 TABLESPOO NFUL TO SWISH FOR 30 SECONDS AND EXPECTORA TE. USE EVERY 1 TO 2 HOURS NEEDED active Not Available Not Available No t Available quetiapine 25 mg tablet active Not Available Not Available Not Available celecoxib 200 mg capsule Take 200 mg by mouth 2 (two) times a day. 2018 active Not Available Not Available Not Avai lable fluconazole 100 mg tablet TAKE 1 TABLET BY MOUTH EVERY WEDNESDAY AND WEDNESDAY FOR 6 MONTHS active Not Available Not Available No t Available atorvastati n 40 mg tablet active Not Available Not Available Not Available gabapentin 600 mg tablet Take 1,200 mg by mouth daily. active Not Available Not Available No t Available ketoconazol e 2 % shampoo USE DIRECTED TO WASH SCALP TWICE A WEEK IN THE MORNING active Not Available Not Available No t Available tizanidine 2 mg tablet Take 1 tab each night at bed time 2019 active Not Available Not Available Not Avai lable atorvastati n 10 mg tablet Take 10 mg by mouth every night at bedtime. 2018 active Not Available Not Available Not Avai lable azithromyci n 250 mg tablet TAKE 2 TABLETS BY MOUTH FOR 1 DAY THEN TAKE 1 TABLET BY MOUTH DAILY active Not Available Not Available No t Available tizanidine 4 mg tablet Take 4 mg by mouth every night at bedtime. 2018 active Not Available Not Available Not Avai lable meloxicam 15 mg tablet Take 1 tablet every day by oral route as directed for 14 days. active Not Available Not Available No t Available lovastatin 40 mg tablet Take 40 mg by mouth every night at bedtime. 2018 active Not Available Not Available Not Avai lable sulfamethox azole 800 mg-trimetho prim 160 mg tablet Take 1 tab 2 times daily for 7 days 11/17 completed Not Available Not Available Not Available amoxicillin 500 mg tablet TAKE 4 TABLETS BY MOUTH DAILY NEEDED PRE DENTAL PROCEDURE S active Not Available Not Available No t Available tamsulosin 0.4 mg capsule TAKE ONE CAPSULE BY MOUTH EVERY DAY active Not Available Not Available No t Available benzonatate 100 mg capsule TAKE 1 CAPSULE BY MOUTH THREE TIMES DAILY FOR UP TO 14 DAYS NEEDED FOR COUGH active Not Available Not Available No t Available triamcinolo ne acetonide 40 mg/mL suspension for injection Take 40 mg by injection route. 2023 active Not Available Not Available Not Avai lable pantoprazol e 40 mg tablet,hayley yed release take 1 tablet by mouth once daily BEFORE BREAKFAST 2018 active Not Available Not Available Not Avai lable aspirin 81 mg tablet Take 81 mg by mouth. active Not Available Not Available No t Available zolpidem 10 mg tablet take 1 tablet by mouth at bedtime if needed for insomnia for UP TO 30 DAYS 2018 active Not Available Not Available Not Avai lable ondansetron 4 mg disintegrat ing tablet DISSOLVE 1 TABLET ON THE TONGUE EVERY 6 TO 8 HOURS NEEDED FOR NAUSEA active Not Available Not Available No t Available cefdinir 300 mg capsule TAKE 1 CAPSULE BY MOUTH TWICE DAILY WITH FOOD FOR 10 DAYS active Not Available Not Available No t Available cholecalcif taylor (vitamin D3) 125 mcg (5,000 unit) capsule Take 1 capsule by mouth daily. 2018 active Not Available Not Available Not Avai lable oxycodone 5 mg tablet Take 5 mg by mouth. active Not Available Not Available No t Available enoxaparin 40 mg/0.4 mL subcutaneou s syringe Inject 0.4 mL (40 mg total) under the skin daily. 2018 active Not Available Not Available Not Avai lable bupropion HCl XL 300 mg 24 hr tablet, extended release Take 300 mg by mouth every morning. active Not Available Not Available No t Available nitrofurant oin monohydrate /macrocryst als 100 mg capsule take 1 capsule by mouth twice a day for 7 days 11/17 completed Not Available Not Available Not Available duloxetine 30 mg capsule,del ayed release Take 30 mg by mouth every evening. active Not Available Not Available No t Available duloxetine 60 mg capsule,del ayed release Take 60 mg by mouth daily. active Not Available Not Available No t Available Lyrica 50 mg capsule Take 50 mg by mouth 3 (three) times a day. 2018 active Not Available Not Available Not Avai lable loratadine active Not Available Not Av ailable Not Available quetiapine active Not Available Not Av ailable Not Available gabapentin active Not Available Not Av ailable Not Available Wellbutrin SR active Not Available Not Available Not Available Nexium active Not Available Not Availa ble Not Available duloxetine active Not Available Not Av ailable Not Available alendronate -vitamin D3 active Not Available Not Available Not Available lidocaine (PF) 10 mg/mL (1 %) injection solution Take 0.5 mL by injection route. 2023 active Not Available Not Available Not Avai lable FeroSul 325 mg (65 mg iron) tablet TAKE 1 TABLET BY MOUTH TWICE A WEEK active Not Available Not Available No t Available coenzyme Q10 400 mg capsule Take 1 capsule by mouth. 2019 active Not Available Not Available Not Avai lable cholecalcif taylor (vitamin D3) 125 mcg (5,000 unit) tablet 2018 active Not Available Not Available Not Avai lable glucosamine sulfate sodium chloride 1,000 mg tablet Take 1 each by mouth. active Not Available Not Available No t Available Multi Vitamin active Not Available Not Available Not Available multivit-mi [id number]-s it K-Q10 active Not Available Not Available Not Available Vitals Date Recorded Body height Body mass index (BMI) Body weight Provider Name and Address Organization Details Last Updated DateTime 05/25/2024 157.48 cm 27.1 kg/m2 [address].[address] [facility] 05/25/2024 11:24:30 Date Recorded Body height Body mass index (BMI) Body weight Provider Name and Address Organization Details Last Updated DateTime 08/03/2024 157.48 cm 27.1 kg/m2 50736.[address] [place] [facility] 08/03/2024 10:54:56 Date Recorded Body height Body mass index (BMI) Body weight Provider Name and Address Organization Details Last Updated DateTime 11/09/2024 157.48 cm 26.9 kg/m2 39938.[address] [facility] 11/09/2024 13:22:51 Social History None recorded. Functional Status Question Answer Note LastModified by Organizat ion Details LastModified Time Do you use any illicit or recreational drugs? No [email or web address] Information not available 11/09/2024 What is your level of alcohol consumption? None [email or web address] Information not available 11/09/2024 Are you currently employed? No Information not available 11/09/2024 Mental Status None recorded. Family History Relationship Description Onset Age of this Age Resolved Age Notes LastModified by Organization Details LastModified Time Father Arthritis [email or web address] Not availabl e 05/25/2024 11:25:18 Father History of cancer of unknown primary site Not available 11:25:39 Father Hypertensive disorder [email or web address] Not available 2023 11:26:13 Father Hyperlipidem ia Not available 2023 11:26:50 Brother Arthritis [email or web address] Not availab le 05/25/2024 11:25:18 Brother Family history of stroke Not available 2023 11:26:33 Brother Hyperlipidem ia [email or web address] Not available 2023 11:26:50 Mother Arthritis [email or web address] Not availabl e 05/25/2024 11:25:18 Mother History of hypertension [email or web address] Not available 11:27:25 Mother Scoliosis deformity of spine [email or web address] Not available 2023 11:27:37 Sister Arthritis [email or web address] Not availabl e 05/25/2024 11:25:18 Medical History Condition Response Anemia Y Gynecological HistoryNo gynecological history recorded. Obstetrics History GPAL:G 0 P 0 0 0 0 Past Encounters Encounter ID Performer Location Encounter Start Date Encounter Closed Date Diagnosis/Indication Diagnosis SNOMED-CT Code Diagnosis ICD10 Code Diagnosis IMO Codes Diagnosis Note [id number] CLAIR PARKS [place] [address] [address] 05/25/2024 10:30:35 05/25/2024 11:08:35 Pain in right foot 5535633465 59654 M79.671 Arthritis of joint of toe 807922228 M19.079 Additional diagnosis detail: 1st MTP arthritis [id number] [place] [place] [address] [facility] [address] [place] [id number] 08/03/2024 10:46:30 08/03/2024 11:12:28 Arthritis of joint of toe 780920141 M19.079 Additional diagnosis detail: 1st MTP arthritis [id number] CLAIR BARBOSA [facility] [address] [facility],[place] [address] [place] [address] 11/09/2024 12:48:18 11/09/2024 13:57:22 Pain of right knee region 8941635092 58547 M25.561 24699474 History of fall 86945015 9 Z91.81 8893406 Contusion of right knee 4387657075 2248945 S80.01XA 700232 Osteoarthr itis of right knee joint 5569564438 58826 M17.11 6137127 Health Concerns Section Related Observation LastModified by Organization Detai ls LastModified Time None Recorded Concern Status LastModified by Organization Details LastModified Time None Recorded Advance Directives Directive None Recorded Payers None recorded. Notes Date Note Type Note Provider Name and Address Organization Details Recorded Time 05/25/2024 text/html Patti Devine is a 73 year old female who presents today for evaluation regarding her right foot. Her pain has been present for the last year. She does note that she had a fall and feels that since then her pain has actually worsened but does not recall actually injuring the foot during the fall. Her pain is at the distal dorsal foot localized to her great toe. She previously had a bunion procedure in 2014 which is overall done well. Today she also complains of ongoing swelling that fluctuates with her activity level. No prior treatments to date. Past medical history significant for psoriasis and anemia. 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 OMKAR LEON PA-C [address], [place], [address], [facility] 05/25/2024 12:26:52 08/03/2024 text/html Patti Devine is a 73 year old female who presents today for repeat assessment of her right great toe following her cortisone injection performed at her last visit. She is doing very well. Her injection was very helpful. She has very mild discomfort but this is overall manageable at this time. From 05/25/24 (TK): evaluation regarding her right foot. Her pain has been present for the last year. She does note that she had a fall and feels that since then her pain has actually worsened but does not recall actually injuring the foot during the fall. Her pain is at the distal dorsal foot localized to her great toe. She previously had a bunion procedure in 2014 which is overall done well. Today she also complains of ongoing swelling that fluctuates with her activity level. No prior treatments to date. Past medical history significant for psoriasis and anemia. 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 OMKAR LEON PA-C [address], [place], [address], [facility] 08/03/2024 11:13:17 11/09/2024 text/html ROS as noted in the HPI Pleasant 73-year-old female presents to the urgent care today for evaluation of acute on chronic right knee pain. She reports she was on a cruise about 3 weeks ago and twisted it while she was walking in the sand. This was starting to settle out on its own, and then unfortunately she fell approximately 5 days ago, direct blow to the knee. She reports swelling bruising and difficulty weightbearing. She has been treating with ice rest and Tylenol and ibuprofen as needed with moderate relief. Her swelling is slowly decreasing. Her pain is predominantly over the anteromedial knee, rates this a 5/10. Denies radiation of pain down the leg. Denies sensations of instability. She is not using a brace or crutches to ambulate.History significant for left knee total arthroplasty she estimates about 5 years ago. She is retired. Reported past medical history includes anemia, arthritis and fibromyalgia. Denies EtOH, tobacco or drug use. Never smoker. ORLY COTTER PA-C [address], [place], [address], [place] [facility] 11/09/2024 16:59:31 OBGyn Episode No OBEpisode recorded.
--- OUTSIDE RECORDS SUMMARY | 2025-09-14 10:56 | XMS_ITS | Encounter Summary ---
Author Organization [facility] Address [address] [place] [address] Care Team Providers Care Master [place] Name Role Phone Taras Shelton MD Primary Care Provider [phone] Taras Shelton MD Unavailable [phone] Liana Harper DO Unavailable [phone] Encounter Details Date Type Department Care Team (Late st Contact Info) Description 06/28/2008 Hospital Visit [facility] OUTPATIENT Provider, Unknown Social History Tobacco Use Types Packs/Day Years Used Date Smoking Tobacco: Never Assessed Comments Unknown Sex and Gender Information Value Date Recorded Sex Assigned at Not on file Legal Sex Female 6:51 AM EST Gender Identity Not on file Sexual Orientation Not on file documented as of this encounter Plan of Treatment Not on file documented as of this encounter Visit Diagnoses Not on filedocumented in this encounter Care Teams Master [place] Relationship Specialty Start Date End Date Taras Shelton MD [address] [place] [address] PCP - General 06/28/08 Taras Shelton MD [address] [place] [address] PCP - Hospital (change to care team) 09/30/09 08/18/16 Liana Harper DO [address] [place] [id number] PCP - Neuromusculoskeletal Med and [facility] (change to care team) 04/14/11 07/01/16 documented as of this encounter
--- OUTSIDE RECORDS SUMMARY | 2025-09-14 10:56 | XMS_ITS ---
Author Name [facility] Organization Unknown History of Medication Use Medication Directions Dispensed Refills Start Date End Date Stat meloxicam 15 mg tablet Take 1 tablet every day by oral route as directed for 14 days. 11/09/2024 active lidocaine (PF) 10 mg/mL (1 %) injection solution Take 0.5 mL by injection route. 05/25/2024 active triamcinolone acetonide 40 mg/mL suspension for injection Take 40 mg by injection route. 05/25/2024 active triamcinolone acetonide 40 mg/mL suspension for injection active lidocaine (PF) 10 mg/mL (1 %) injection solution active meloxicam 15 mg tablet active alendronate-vitamin D3 active amoxicillin 500 mg tablet TAKE 1 TABLET BY MOUTH THREE TIMES DAILY UNTIL ALL TAKEN active atorvastatin 40 mg tablet active azithromycin 250 mg tablet TAKE 2 TABLETS BY MOUTH FOR 1 DAY THEN TAKE 1 TABLET BY MOUTH DAILY active benzonatate 100 mg capsule TAKE 1 CAPSULE BY MOUTH THREE TIMES DAILY FOR UP TO 14 DAYS NEEDED FOR COUGH active bupropion HCl XL 300 mg 24 hr tablet, extended release active cefdinir 300 mg capsule TAKE 1 CAPSULE BY MOUTH TWICE DAILY WITH FOOD FOR 10 DAYS active duloxetine 30 mg capsule,delayed release active duloxetine 60 mg capsule,delayed release active FeroSul 325 mg (65 mg iron) tablet TAKE 1 TABLET BY MOUTH TWICE A WEEK active fluconazole 100 mg tablet TAKE 1 TABLET BY MOUTH EVERY WEDNESDAY AND WEDNESDAY FOR 6 MONTHS active gabapentin 600 mg tablet active ketoconazole 2 % shampoo USE DIRECTED TO WASH SCALP TWICE A WEEK IN THE MORNING active loratadine active Nexium active ondansetron 4 mg disintegrating tablet DISSOLVE 1 TABLET ON THE TONGUE EVERY 6 TO 8 HOURS NEEDED FOR NAUSEA active oxycodone 5 mg tablet TAKE 1 TABLET BY MOUTH EVERY 4 TO 6 HOURS NEEDED FOR POST OPERATIVE PAIN active quetiapine active quetiapine 25 mg tablet active tamsulosin 0.4 mg capsule TAKE ONE CAPSULE BY MOUTH EVERY DAY active Allergies Allergen Reaction Severity Comment Documented Date Source Statu s NORPRAMIN [facility] Problems Problem Status Onset Date Problem Type Date of Resoluti on Source Osteoarthritis of right knee joint active 2024-11-09 ProblemAct [facility] Arthritis of joint of toe active 2024-05-25 ProblemAct [facility] Contusion of right knee active 2024-11-09 ProblemAct [facility] Encounters Encounter Type Encounter Reason Primary Diagnosis Location Date Ambulatory [facility] 11/14/2024 [facility] 05/29/2024 [facility] 05/25/2024 [facility] 05/25/2024 [facility] 05/23/2024 [facility] 05/23/2024 [facility] 05/15/2024 [facility]ulatory [facility] 05/05/2024 [facility] 05/05/2024 Care Team Organization Name Specialty Phone Email Start Date End Da te [facility] 07/18/[address] [facility] Anny Sanchez Primary Care 08/05/[address] [facility] Mariia Nicholas Primary Care 12/07/2022[address] [facility] Lluvia Salazar Primary Care 10/06/2022 024
--- OUTSIDE RECORDS SUMMARY | 2025-09-14 10:56 | XMS_ITS | Encounter Summary ---
Author Organization [facility] Address [address] [place] [address] Care Team Providers Care Rn Placement Name Role Phone Taras Shelton MD Primary Care Provider [phone] Taras Shelton MD Unavailable [phone] Meredith Liana DO Unavailable [phone] Encounter Details Date Type Department Care Team (Late st Contact Info) Description 09/30/2009 Hospital Visit [facility] OUTPATIENT Ashvin Lambert MD [address] [place] [address] [place] [address] [place] [address] Social History Tobacco Use Types Packs/Day Years [...] Name Priority Date/Time Associated Diagnosis Comments XR LUMBAR SPINE AP AND LATERAL 09/30/2009 2:52 PM EST documented in this encounter Results * XR LUMBAR SPINE AP AND LATERAL (09/30/2009 2:52 PM EST) Anatomical Region Laterality Modality T-spine, L-spine, Pelvis Other 09/30/2009 2:52 PM EST Narrative 10/01/2009 5:44 AM EST DATE: 09/30/2009 14:52 ORDERED EXAM: LUMBAR SPINE EXAM: 09/30/09 AP AND LATERAL VIEWS OF THE LUMBOSACRAL SPINE INDICATION: Follow up lumbar fusion. COMPARISON: 08/07/09, 06/12/09, 05/02/09. FINDINGS: There are five lumbar-type vertebral bodies present. The patient is status post fusion of L3-S1. There are interpedicular screws and vertical bridging rods at these levels. 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 There is minimal anterior spondylolisthesis of L3 over L4 and L4 over L5, however, this remains stable compared to the prior examinations dating back to 06/12/09. There are disc spacers present at the L3-4, L4-5 and L5-S1 levels. Postlaminectomy changes are present at the L3-L5 levels. Sacroiliac joints are maintained. There is slight curvature of the lumbar spine, convex left. IMPRESSION: Status post posterior fusion of L3-S1 with stable alignment compared to 08/07/09 and 06/12/09. Slight curvature of lumbar spine, convex left. Approved Result / Electronically Signed by DUSTY FRIAS 02-Oct-2009 07:48 end of result Ashvin Lambert MD IMG DIAGNOSTIC IMAGING ORDERABL ES Final Result documented in this encounter Visit Diagnoses Not on filedocumented in this encounter Care Teams Rn Placement Relationship Specialty Start Date End Date Taras Shelton MD [address] [place] [address] PCP - General 06/28/08 Taras Shelton MD [address] [place] [address] PCP - Hospital (change to care team) 09/30/09 08/18/16 Liana Harper DO [address] [place] [id number] PCP - Neuromusculoskeletal Med and [facility] (change to care team) 04/14/11 07/01/16 documented as of this encounter
--- OUTSIDE RECORDS SUMMARY | 2025-09-14 10:56 | XMS_ITS | Clinical Summary ---
Author Organization [facility] Address [address] [place] [address] Phone Care Team Providers Care Campground Caretaker Name Role Phone Anny Sanchez MD Primary Care Provider [phone] Allergies Active Allergy Reactions Criticality Noted Date Comments Bee Venom Protein (Honey Bee) Anaphylaxis High 01/02/2016 Buprenorphine-Naloxone Nausea And Vomiting Low 09/29 Weakness and nausea Desipramine Hcl Swelling Medium 10/14/2015 Swelling and itching Oxymorphone Nausea And Vomiting Low 10/14/2015 Medications aspirin 81 mg EC tablet Take 81 mg by mouth daily. Active buPROPion XL (WELLBUTRIN XL) 300 mg 24 hr tablet 0 Active DULoxetine (CYMBALTA) [address] capsule Liset Thomas 9 Active EPINEPHrine (EpiPen 2-Arjun) 0.3 mg/0.3 mL injection Inject 0.3 mg into the muscle as needed for Other (anaphylactic reaction). Fill with whichever brand is covered by insurance. 3 Active ferrous sulfate 325 mg (65 mg elemental iron) tablet Take 1 Tablet by mouth twice a week. 3 Active ketoconazole (NIZORAL) 2 % shampoo 3 Active loratadine (CLARITIN) 10 mg tablet Take 1 Tablet by mouth daily. Active magnesium oxide 500 mg capsule Take 1 Each by mouth daily. Active multivitamin with minerals (MULTIPLE VITAMIN-MINERAL S ORAL) Take 1 Each by mouth daily. Active QUEtiapine (SEROquel) 25 mg tablet LISET THOMAS 0 Active triamcinolone (KENALOG) 0.5 % cream Apply to upper arm every 8 hours 2 Active esomeprazole (NexIUM) [address] capsule Take 1 capsule (20 mg total) by mouth 1 (one) time each day before breakfast. Do not open capsule. Active gabapentin (NEURONTIN) 600 mg tablet TAKE 2 TABLETS BY MOUTH DAILY 180 tablet 1 5 Active meloxicam (MOBIC) 15 mg tablet Take 1 tablet (15 mg total) by mouth 1 (one) time each day. 5 Active traMADoL (ULTRAM) 50 mg tablet Take 1 tablet (50 mg total) by mouth. 5 Active coenzyme Q-10 (Co Q-10) 100 mg capsule Take 1 capsule (100 mg total) by mouth 1 (one) time each day. 5 Active albuterol HFA (PROAIR HFA ; PROVENTIL HFA ; VENTOLIN HFA) 90 mcg/actuation inhaler Inhale 2 puffs by mouth every 4 (four) hours if needed for wheezing. 6.7 g 5 Active atorvastatin (LIPITOR) 40 mg tablet TAKE 1 TABLET BY MOUTH DAILY 90 tablet 3 5 Active Active Problems Problem Noted Date Diagnosed Date Kidney stone 05/08/2024 Overview (09/26/2024): 05/22 left hydronephrosis and ureteral stone Vitamin D deficiency 01/08/2020 Chronic obstructive pulmonar y disease ([facility] V24, [facility] V28) 08/23/2019 Nocturnal hypoxia 08/23/2019 Spinal cord stimulator status 07/05/2019 Total knee replacement status 07/05/2019 Overview (03/16/2025): Left 06/16 Iron deficiency anemia 04/28/2019 Chronic pain of both knees 12/02/2017 Lumbar spondylosis 10/25/2015 Post laminectomy syndrome 10/25/2015 Depression 10/14/2015 DJD (degenerative joint disease), lumbar 015 Eczema 10/14/2015 Fibromyalgia 10/14/2015 GERD (gastroesophageal reflux disease) 5 Hyperlipidemia 10/14/2015 Insomnia 10/14/2015 History of basal cell carcinoma Overview (03/16/2025): : BCC 05/16 back (nodular and superficial) Encounters Date Type Department Care Team Description 08/27/2025 1:20 PM EDT - 08/27/2025 11:59 PM EDT Hospital Encounter Radiology Department - [address] [id number] Spinal stenosis, cervical region; Postlaminectomy syndrome, not elsewhere classified; Radiculopathy, cervical region; Cervicocranial syndrome Discharge Disposition: Home or Self Care 07/31/2025 10:00 AM EDT Consult Adult Medicine [address] [phone] Anny Sanchez MD Preop cardiovascular exam (Primary Dx); Other hyperlipidemia; Gastroesophageal reflux disease without esophagitis; Chronic obstructive pulmonary disease, unspecified COPD type ([facility] V24, [facility] V28); Vitamin D deficiency; Poor dentition 07/24/2025 Telephone Adult Medicine [address] [phone] Anny Sanchez MD from Last 3 Months Immunizations Immunization Administration Dates Next Due COVID-19 (Pfizer/Comirnaty) 12yo and older 08/22/2025,03/14/2025,08/07/2024 Influenza Quadravalent, 0.5m l (Fluad) 65yo and older 09/05/2021 Influenza Quadravalent, 0.5m l (Fluzone High-dose) 65yo and older 07/20/2023 Influenza Quadrivalent, with preservative (Fluzone; Afluria) 6mo and older 08/26/2022 Influenza trivalent, 0.5mL ( Fluad) 65yo and older 08/22/2025,07/30/2024,07/20/2023,09/05,09/18/2019,08/09/2019,09/17/2017 ,09/04/2016 Influenza trivalent, 0.5mL ( Fluzone High-dose) 65yo and older 07/20/2024,08/09/2019,09/17/2017,09/04 Influenza trivalent, 0.5mL, preservative free (Fluarix; FluLaval; Fluzone) ages 6mo and older (Afluria) 3 years and older 08/26/2022,08/15/2020,11/05/2015 Influenza trivalent, with pr eservative (Fluzone; Afluria) 6mo and older 11/05/2015 Pfizer (ages 12 & older) Biv alent, COVID-19 08/07/2024,07/20/2023 Derceto Covid-19 Bivalent, Or iginal + Ba.1 (Non-US Trademark COMIRNATY Bivalent) 07/20/2023 Derceto SARS-CoV-2 COVID-19, mRNA, LNP-S, preservative free 09/05/2021,02/17/2021,01/27/2021 Pneumococcal conjugate 13 va lent (Prevnar 13, PCV13) 2mo and older 01/02/2016 Pneumococcal conjugate 20 va lent (Prevnar 20, PCV 20) 2mo and older 08/07/2024 Pneumococcal polysaccharide 23 valent (Pneumovax 23) 2yo and older 05/03/2017 RSV, bivalent, protein subun it RSVpreF, 0.5mL, Preservative Free (ABRYSVO) 50yo and older or 32 through 36 wks of 07/20/2024 Respiratory syncytial virus (RSV), unspecified 07/30/2024 Td Tetanus diptheria (Tdvax) 7yo and older 05/03/2017 Tdap Tetanus diptheria acell ular pertussis (Boostrix; Adacel) 7yo and older 08/07/2024 Zoster Live 11/03/2012 Zoster recombinant (Shingrix ) 19yo and older 12/12/2021 Surgical History Surgery Date Site/Laterality Comments CARPAL TUNNEL RELEASE Bilateral OTHER SURGICAL HISTORY 2007 IN [facility] ANT INTERBODY MIN DSC CRV BELOW C2 OTHER SURGICAL HISTORY LUMBAR SPINE FUSION, LAT TRANSVERSE; COMMENT: L5-S1 2008 and 2010 BUNIONECTOMY Right KNEE ARTHROSCOPY 2009 Bilateral meniscus surgery COLONOSCOPY 02/18/2016 TOTAL KNEE ARTHROPLASTY 05/2019 Left COLONOSCOPY 01/17/2020 negative UPPER GASTROINTESTINAL ENDOSCOPY 01/17/2020 negative, biopsy pending Medical History Medical History Date Comments Psoriasis Depression 10/14/2015 Fibromyalgia 10/14/2015 Insomnia 10/14/2015 Hyperlipidemia 10/14/2015 Eczema 10/14/2015 DX:Eczema DJD (degenerative joint dise ase), lumbar 10/14/2015 GERD (gastroesophageal reflu x disease) 10/14/2015 Post laminectomy syndrome 10/25/2015 Lumbar spondylosis 10/25/2015 History of basal cell carcinoma 05/09/2018 : BCC 05/16 back (nodular and superficial) Iron deficiency anemia 04/28/2019 Spinal cord stimulator status 07/05/2019 Total knee replacement status 07/05/2019 Le ft 06/16 Vitamin D deficiency 01/08/2020 Kidney stone 05/08/202405/22 left hydron ephrosis and ureteral stone Family History Medical History Relation Name Comments Stroke Brother Heart disease Father CAD, prostate cancer, HTN, glaucoma COPD Mother graves disease Diabetes Paternal Grandfather Asthma Sister Breast cancer Neg Hx Relation Name Status Comments Brother Alive Father (Age 84) Mother (Age 73) Paternal Grandfather Sister Alive Social History Tobacco Use Types Packs/Day Years Used Date Smoking Tobacco: Never Smokeless Tobacco: Never Tobacco Cessation:Counseling Given: Not Answered Alcohol Use Standard Drinks/Week Comments Not Currently 0 (1 standard drink = 0.6 oz pur e alcohol) Housing Instability Answer Date Recorde d Are you worried that in the next 2 months you may not have stable housing? No 01/30/2025 Food Access & Nutrition Answer Date Rec orded Do you have access to a vari ety of food including fruits and vegetables? Yes 01/30/2025 Access to Healthcare Answer Date Record ed Within the last 3 months, gutierrez woody many times did you visit the emergency department for your medical care? 1 01/30/2025 Health Literacy Answer Date Recorded How often do you need to hav e someone help you when you read instructions, pamphlets, or other written material from your doctor or pharmacy? Never 01/30/2025 Caregiver: How often do you need to have someone help you when you read instructions, pamphlets, or other written material from your doctor or pharmacy? Not on file 01/30/2025 Financial Risk Answer Date Recorded How hard is it for you to pa y for the very basics like food, housing, medical care, and air conditioning / heating? Patient declined 01/30/2025 Transportation Answer Date Recorded Has the lack of transportati on kept you from meetings, work, or from getting things needed for daily living? No Has the lack of transportati on kept you from medical appointments or from getting medications? No 01/30/2025 Social Isolation Answer Date Recorded How often do you feel lonely or isolated from those around you? Sometimes 01/30/2025 Food Risk Answer Date Recorded Within the past 12 months we worried whether our food would run out before we got money to buy more. Never true 01/30/2025 Within the past 12 months th e food we bought just didn't last and we didn't have money to get more. Never true 01/30/2025 Dependent Care Answer Date Recorded Do you need help finding or paying for care for your loved ones. For example, child center assistant or elderly care for an older adult? No 01/30/2025 Education Answer Date Recorded Do you think completing more education or training, like finishing a GED, going to college, or learning a trade, would be helpful for you? No 01/30/2025 Employment and Income Answer Date Recor ded During the last four weeks, have you been actively looking for work? No 01/30/2025 Living Situation Answer Date Recorded What is your living situation? Unrecognized valu e 01/30/2025 Comments No Sex and Gender Information Value Date Recorded Sex Assigned at Female 11/20/2024 9:04 AM EST Legal Sex Female 12:51 AM EST Gender Identity Female 11/20/2024 9:04 AM EST Sexual Orientation Straight 11/20/2024 9: 04 AM EST Obstetrics History Para Term AB IAB SAB Ectopic Multiple Livin g Live Births 3 3 3 3 Date Outcome GA Total Labor Labor/2nd/3rd Weight Sex Type Anes PTL Malgorzata A1 A5 Name Clin Term Term Term Last Filed Vital Signs Vital Sign Reading Time Taken Comments Blood Pressure 134/68 07/31/2025 10:03 AM EDT Pulse 78 07/31/2025 10:03 AM EDT Temperature 36.1 C (96.9 F) 07/31/2025 10:03 AM EDT Respiratory Rate 14 07/31/2025 10:0 3 AM EDT Oxygen Saturation 96% 07/31/2025 10: 03 AM EDT Inhaled Oxygen Concentration - - Weight 67.9 kg (149 lb 12.8 oz) 025 10:03 AM EDT Height 157.5 cm (5' 2 ) 07/31/2025 10:0 3 AM EDT Body Mass Index 27.4 07/31/2025 10:03 AM EDT Plan of Treatment Upcoming Encounters Date Type Department Care Team (Late st Contact Info) Description 10/29/2025 1:00 PM EST Office Visit Pulmonology - [place] [address] [place] [address] Moo Lozano MD [address] [place] [address] 01/29/2026 8:45 AM EST Office Visit Adult Medicine [facility] [address] [place], [place] [phone] Anny Sanchez MD [address] [place], [place] Health Maintenance Due Date Last Done Comments Zoster Vaccines (2 of 2) 02/06/2022 12/12/2021, 04/2012 Osteoporosis Screening (Bone Density Screening) 11/07/2022 Medicare Annual Wellness Visit 08/08/2025 08/08/2024 Social Influencers of Health Screening 01/30/2026 01/30/2025 Falls Risk Assessment 02/05/2026 02/05/2025, 024 Breast Cancer Screening 11/17/2026 11/17/20 24, 11/05/2023, 10/27/2022, Additional history exists Colorectal Cancer Screening: Colonoscopy 01/17/2030 01/17/2020 Cholesterol Screening (Lipid Panel) 03/21/2030 03/21/2025, 08/08/2024, 08/08/2024 DTaP,Tdap,and Td Vaccines (3 - Td or Tdap) 08/07/2034 08/07/2024, 05/03/2017 Hepatitis C Screening Completed 06/15/2020 RSV Immunization Adult Patients Completed 07/30/2024, 07/20/2024 RSV Immunization Patients Under 20 months Aged Out 07/30/2024 No longer eligible based on patient's age to complete this topic Pneumococcal Vaccine: 50+ Years Completed 08/07/2024, 05/03/2017, 01/02/2016 Depression Screening Completed 01/30/2025, 08/08/20 24 COVID-19 Vaccine Completed 08/22/2025, , 08/07/2024, Additional history exists Influenza Vaccine Completed 08/22/2025, , 07/20/2024, Additional history exists HIB Vaccines Aged Out No longer eligi ble based on patient's age to complete this topic HPV Vaccines Aged Out No longer eligi ble based on patient's age to complete this topic Hepatitis A Vaccines Aged Out No long er eligible based on patient's age to complete this topic Hepatitis B Vaccines Aged Out No long er eligible based on patient's age to complete this topic IPV Vaccines Aged Out No longer eligi ble based on patient's age to complete this topic MMR Vaccines Aged Out No longer eligi ble based on patient's age to complete this topic Meningococcal ACWY Vaccine Aged Out N o longer eligible based on patient's age to complete this topic Meningococcal B Vaccine Aged Out No l onger eligible based on patient's age to complete this topic Varicella Vaccines Aged Out No longer eligible based on patient's age to complete this topic Medical Devices Implanted Type Area Grocery Clerk Checking Device Identifier Shelf Expiration Date Model / Serial / Lot Joints Knee Joints Knee Left: Knee Spinal Hardware Spinal Hardware N/A: Back Procedures Procedure Name Priority Date/Time Associated Diagnosis Comments MR CERVICAL SPINE WO CONTRAST Routine 08/27/2025 2:24 PM EDT Spinal stenosis, cervical region Postlaminectomy syndrome, not elsewhere classified Radiculopathy, cervical region Cervicocranial syndrome ECG 12-LEAD Routine 07/31/2025 10:59 AM EDT Preop cardiovascular exam LIPID PANEL WITH REFLEX TO DIRECT LDL Routine 03/21/2025 9:17 AM EDT Mixed hyperlipidemia MG MAMMO DIGITAL SCREENING W DOYLE BILAT Routine 11/17/2024 9:50 AM EST Encounter for screening mammogram for breast cancer HM DEPRESSION SCREENING Routine 08/08/2024 HEPATITIS C SCREENING Routine 06/15/2020 COLONOSCOPY Routine 01/17/2020 from Last 3 Months or Most Recently Relevant to Health Maintenance Results * MR Cervical Spine wo Contrast (08/27/2025 2:24 PM EDT) Anatomical Region Laterality Modality C-spine, Spine Magnetic Resonan ce 08/29/2025 5:27 PM EDT Narrative 08/29/2025 8:12 PM EDT MRI of the cervical spine without intravenous contrast. History neck pain. Examination was performed on 1.5 Ashely magnet without administration of intravenous contrast. Comparison with previous plain films from 08/20/2023. No prior MRI examinations are available for comparison. Again noted are post operative changes with anterior fusion from C4 to C7. The upper surgical and surgical plate in place. There appears to be discectomy at C4-5 C5- 6 and C6-7 levels. At C2-3 level there is mild diffuse bulging of the disc and marginal osteophytes as well as some hypertrophy of the facet and uncovertebral joints. There is narrowing of the C3 neural foramina. It is more prominent on the left. There is no spinal cord compression. At C3-4 level disc is decreased in height and T2 signal. There is 4.2 mm anterior displacement of C3 over C4. There is a left paramedian/lateral extrusion of the disc. There are hypertrophic changes in the facet and uncovertebral joints more prominent in the left facet joint. There is severe stenosis of the lateral recesses and C4 neural foramina. There is arm obliteration of the anterior subarachnoid space and mild compression of the anterior surface of the spinal cord. There is mild central spinal stenosis. At C4-5 level there are post operative changes. There is no focal disc herniation, spinal stenosis or nerve root compression. At C5-6 level there are anterior marginal osteophytes wasn't narrowing of the anterior subarachnoid space. There is mild narrowing of the C6 neural foramina. There is no spinal cord compression. At C6-7 level there are hypertrophic changes in the facet joints. There is arm mild anterior displacement of C6 over C7 and diffuse bulging of the disc. There is narrowing of the C7 neural foramina bilaterally, At C7-T1 level disc is decreased in height and T2 signal. There is a protrusion of the disc with disc material extending superior to the disc level. There is narrowing of the lateral recesses and C8 neural foramina more prominent on the left. No focal signal abnormalities were visualized within the spinal cord. CONCLUSIONS: Post operative changes with anterior fusion from C4 to C7. Multilevel bony and discs degenerative changes with small left paramedian midline/lateral extrusion of the C3-4 disc, mild spinal stenosis at C3-4 level, severe stenosis of the lateral recesses and C4 neural foramina, compression of the anterior surface of the spinal cord. Additional findings at other levels as detailed. -------- FINAL REPORT -------- Dictated By: Monet Espinal Dictated Date: 08/29/2025 17:27 ET Assigned Physician: Monet Espinal Reviewed and Electronically Signed By: Monet Espinal Signed Date: 08/29/2025 20:12 ET Workstation ID: [id number] Transcribed By: Self Edit Transcribed Date: 08/29/2025 17:27 ET Procedure Note Monet Espinal MD - 08/29/2025 MRI of the cervical spine without intravenous contrast. History neck pain. Examination was performed on 1.5 Ashely magnet without administration ofintravenous contrast. Comparison with previous plain films from 08/20/2023.No prior MRI examinations are available for comparison. Again noted are post operative changes with anterior fusion from C4 to C7.The upper surgical and surgical plate in place. There appears to bediscectomy at C4-5 C5-6 and C6-7 levels. At C2-3 level there is mild diffuse bulging of the disc and marginalosteophytes as well as some hypertrophy of the facet and uncovertebraljoints. There is narrowing of the C3 neural foramina. It is moreprominent on the left. There is no spinal cord compression. At C3-4 level disc is decreased in height and T2 signal. There is 4.2 mmanterior displacement of C3 over C4. There is a left paramedian/lateralextrusion of the disc. There are hypertrophic changes in the facet anduncovertebral joints more prominent in the left facet joint. There issevere stenosis of the lateral recesses and C4 neural foramina. There isarm obliteration of the anterior subarachnoid space and mild compressionof the anterior surface of the spinal cord. There is mild central spinalstenosis. At C4-5 level there are post operative changes. There is no focal discherniation, spinal stenosis or nerve root compression. At C5-6 level there are anterior marginal osteophytes wasn't narrowing ofthe anterior subarachnoid space. There is mild narrowing of the C6 neuralforamina. There is no spinal cord compression. At C6-7 level there are hypertrophic changes in the facet joints. There isarm mild anterior displacement of C6 over C7 and diffuse bulging of thedisc. There is narrowing of the C7 neural foramina bilaterally, At C7-T1 level disc is decreased in height and T2 signal. There is aprotrusion of the disc with disc material extending superior to the disclevel. There is narrowing of the lateral recesses and C8 neural foraminamore prominent on the left. No focal signal abnormalities were visualized within the spinal cord. CONCLUSIONS: Post operative changes with anterior fusion from C4 to C7. Multilevel bonyand discs degenerative changes with small left paramedian midline/lateralextrusion of the C3-4 disc, mild spinal stenosis at C3-4 level, severestenosis of the lateral recesses and C4 neural foramina, compression ofthe anterior surface of the spinal cord. Additional findings at otherlevels as detailed. -------- FINAL REPORT -------- Dictated By: Monet Espinal Dictated Date: 08/29/2025 17:27 ET Assigned Physician: Monet Espinal Reviewed and Electronically Signed By: Monet Espinal Signed Date: 08/29/2025 20:12 ET Workstation ID: [id number] Transcribed By: Self Edit Transcribed Date: 08/29/2025 17:[address] DO IMG MRI PROCEDURES Final Result * (ABNORMAL) ECG 12 lead (07/31/2025 10:59 AM EDT) us Anny Sanchez MD ECG ORDERABLES Final Result * Lipid panel with reflex to direct LDL (03/21/2025 9:17 AM EDT) Cholesterol 165 0 - 200 mg/dL LAB CHEMISTRY METHOD 03/21/2025 12:30 PM EDT [facility] Triglycerides 141 0 - 150 mg/dL LAB CHEMISTRY METHOD 03/21/2025 12:30 PM EDT [facility] HDL 52 >=40 mg/dL LAB CHEMISTRY METHOD 03/21/2025 12:30 PM EDT [facility] LDL Calculated 85 0 - 100 mg/dL LAB CHEMISTRY METHOD 03/21/2025 12:30 PM EDT [facility] VLDL Cholesterol Yunior 28.2 mg/dL LAB CHEMISTRY METHOD 03/21/2025 12:30 PM EDT [facility] Non HDL Chol. (LDL+VLDL) 113 <145 mg/dL LAB CHEMISTRY METHOD 03/21/2025 12:30 PM EDT [facility] Chol/HDL Ratio 3.2 0.0 - 4.4 LAB CHEMISTRY METHOD 03/21/2025 12:30 PM EDT [facility] Blood Venous blood specimen / Unknown Venipuncture / Unknown 03/21/2025 9:17 AM EDT 03/21/2025 9:17 AM EDT us Meredith STONE LAB BLOOD ORDERABLES Final Re sult [facility] [address] [place] [address], * MG Mammo Digital Screening w Doyle bilat (11/17/2024 9:50 AM EST) Anatomical Region Laterality Modality Breast Bilateral Mammography 11/17/2024 4:49 PM EST Impressions 11/17/2024 4:51 PM EST No mammographic evidence for malignancy. BI-RADS CATEGORY: 1 - NEGATIVE RECOMMENDATION: Screening bilateral mammogram is recommended in 1 year. Screening bilateral mammogram is recommended in 1 year. -------- FINAL REPORT -------- Dictated By: Monet Espinal Dictated Date: 11/17/2024 16:49 ET Assigned Physician: Monet Espinal Reviewed and Electronically Signed By: Monet Espinal Signed Date: 11/17/2024 16:51 ET Workstation ID: [id number] Transcribed By: Self Edit Transcribed Date: 11/17/2024 16:49 ET Narrative 11/17/2024 4:51 PM EST EXAMINATION TYPE: MG MAMMO DIGITAL SCREENING W DOYLE BILAT DATE OF EXAM ORDERED: 11/17/2024 9:43 AM COMPARISON: Prior mammograms, latest from 11/05/2023. REASON FOR STUDY: Breast cancer screen, avg risk, asymptomatic (Age => 40y) TECHNIQUE: Bilateral mediolateral oblique and craniocaudal views were obtained digitally with 3-D mammogram (digital breast tomosynthesis) with CAD. Computer-aided detection was utilized in evaluation of this examination (SecondLook; iCAD). FINDINGS: The breast tissue distribution pattern is unchanged. There is no suspicious mass, suspicious calcifications or suspicious architectural distortion. BREAST DENSITY: B - There are scattered areas of fibroglandular density. Procedure Note Monet Espinal MD - 11/17/2024 EXAMINATION TYPE: MG MAMMO DIGITAL SCREENING W DOYLE BILAT DATE OF EXAM ORDERED: 11/17/2024 9:43 AM COMPARISON: Prior mammograms, latest from 11/05/2023. REASON FOR STUDY: Breast cancer screen, avg risk, asymptomatic (Age =>40y) TECHNIQUE: Bilateral mediolateral oblique and craniocaudal views wereobtained digitally with 3-D mammogram (digital breast tomosynthesis) withCAD. Computer- aided detection was utilized in evaluation of thisexamination (SecondLook; iCAD). FINDINGS: The breast tissue distribution pattern is unchanged. There is nosuspicious mass, suspicious calcifications or suspicious architecturaldistortion. BREAST DENSITY: B - There are scattered areas of fibroglandular density. IMPRESSION: No mammographic evidence for malignancy. BI-RADS CATEGORY: 1 - NEGATIVE RECOMMENDATION: Screening bilateral mammogram is recommended in 1 year. Screeningbilateral mammogram is recommended in 1 year. -------- FINAL REPORT -------- Dictated By: Monet Espinal Dictated Date: 11/17/2024 16:49 ET Assigned Physician: Monet Espinal Reviewed and Electronically Signed By: Monet Espinal Signed Date: 11/17/2024 16:51 ET Workstation ID: [id number] Transcribed By: Self Edit Transcribed Date: 11/17/2024 16:49 ET Anny Sanchez MD IMG BI PROCEDURES Final Result * Depression Screening (08/08/2024) Depression Screening abstracted Historical Provider HEALTH MAINTENANCE Final Result * Hepatitis C Screening (06/15/2020) Hepatitis C Screening abstracted Historical Provider HEALTH MAINTENANCE Final Result * Colonoscopy (01/17/2020) Colonoscopy no interpretation , abstracted Anatomical Region Laterality Modality Other Historical Provider HEALTH MAINTENANCE Final Result from Last 3 Months or Most Recently Relevant to Health Maintenance Insurance MEDICARE [facility] Advance Directives Documents on File Type Date Recorded Patient Grain Sampler Expl anation Health Care Decision (hx) 06/09/2019 AD BALDERRAMA DIRECTIVE Health Care Decision (hx) 06/09/2019 AD BALDERRAMA DIRECTIVE Health Care Decision (hx) 06/09/2019 AD BALDERRAMA DIRECTIVE Care Teams Campground Caretaker Relationship Specialty Start Date End Date Anny Sanchez MD [address] [place] [address] PCP - General Internal Medicine 10/11/15
--- OUTSIDE RECORDS SUMMARY | 2025-09-14 10:56 | XMS_ITS | Clinical Summary ---
Author Organization [facility] Address [address] [place] [address] Care Team Providers Care Field Installer Name Role Phone Anny Sanchez MD Primary Care Provider [phone] Allergies Active Allergy Reactions Criticality Noted Date Comments Desipramine 04/21/2019 Oxymorphone 04/21/2019 Buprenorphine-Naloxone 04/21/2019 Medications Medication Sig Dispensed Refills Start Date End Date Status buPROPion (WELLBUTRIN XL) 300 MG 24 hr tablet Take 300 mg by mouth every morning. 0 04/14/2019 Active celecoxib (CeleBREX) 200 MG capsule Take 200 mg by mouth 2 (two) times a day. 0 03/27/2019 Active Cholecalciferol (VITAMIN D3) 5000 units CAPS Take 1 capsule by mouth daily. 1 03/28/2019 Active DULoxetine (CYMBALTA) DR capsule 60 mg Take 60 mg by mouth daily. 0 04/14/2019 Active gabapentin (NEURONTIN) 600 MG tablet Take 1,200 mg by mouth daily. 0 03/28/2019 Active lovastatin (MEVACOR) 40 MG tablet Take 40 mg by mouth every night at bedtime. 0 03/27/2019 Active LYRICA 50 MG capsule Take 50 mg by mouth 3 (three) times a day. 0 03/28/2019 Active tiZANidine (ZANAFLEX) 4 MG tablet Take 4 mg by mouth every night at bedtime. 0 03/27/2019 Active zolpidem (AMBIEN) 10 MG tablet take 1 tablet by mouth at bedtime if needed for insomnia for UP TO 30 DAYS 0 01/24/2019 Active aspirin 81 MG tablet Take 81 mg by mouth. 0 Active Glucosamine HCl 1000 MG TABS Take 1 each by mouth. 0 Active DULoxetine (CYMBALTA) DR capsule 30 mg Take 30 mg by mouth every evening. 0 06/21/2019 Active atorvastatin (LIPITOR) tablet 10 mg Take 10 mg by mouth every night at bedtime. 0 06/21/2019 Active enoxaparin (LOVENOX) 40 MG/0.4ML SOLN Inject 0.4 mL (40 mg total) under the skin daily. 14 Syringe 0 06/23/2019 Active Additional Information Patient not taking.Reason: Other (treatment over), Reported on 07/20/2019 oxyCODONE (ROXICODONE) 5 MG immediate release tablet Take 5 mg by mouth. 0 Activ e D-5000 5000 units TABS 0 06/23/2019 Active pantoprazole (PROTONIX) 40 MG tablet take 1 tablet by mouth once daily BEFORE BREAKFAST 0 06/21/2019 Active tiZANidine (ZANAFLEX) 2 MG tablet Take 1 tab each night at bed time 30 tablet 2 06/11/2020 Active ferrous sulfate (FeroSul) 325 (65 FE) MG tablet Take 325 mg by mouth. 0 12/25/2019 Active QUEtiapine (SEROquel) 25 MG tablet 0 04/23/2021 Active Coenzyme Q10 400 MG CAPS Take 1 capsule by mouth. 0 12/25/2019 Active amoxicillin (AMOXIL) 500 MG tablet Take 4 tabs 1 hour prior to dental appointment 20 tablet 3 08/25/2022 Active Active Problems Problem Noted Date Diagnosed Date Chronic pain of left knee 08/08/2019 Primary osteoarthritis of both knees 04/21/2019 Family History Medical History Relation Name Comments Heart disease Father Relation Name Status Comments Father Social History Tobacco Use Types Packs/Day Years Used Date Smoking Tobacco: Never Assessed Sex and Gender Information Value Date Recorded Sex Assigned at Not on file Gender Identity Not on file Sexual Orientation Not on file Job Start Date Occupation Industry Not on file Not on file Not on file Last Filed Vital Signs Vital Sign Reading Time Taken Comments Blood Pressure - - Pulse - - Temperature - - Respiratory Rate - - Oxygen Saturation - - Inhaled Oxygen Concentration - - Weight 70.3 kg (155 lb) 06/10/2021 9:20 AM EDT Height 154.9 cm (5' 1 ) 06/10/2021 9:20 AM EDT Body Mass Index 29.29 06/10/2021 9:20 AM EDT Plan of Treatment Health Maintenance Due Date Last Done Comments Hepatitis C Screening 1950 Depression Screening 1962 Preventative Health Evaluation 1968 DTap / Tdap / Td (1 - Tdap) 1969 Colon Cancer Screening (Colonoscopy) 1995 Breast Cancer Screening (Mammogram) 2000 Fall Risk Assessment 2015 Osteoporosis Screening (DEXA Scan) 2015 Shingrix-Zoster Vaccine (2 of 2) 02/06/2022 12/12/2021 COVID-19 Vaccine ( season) 2025 09/05/2021, 02/17/2021, 01/27/2021 Influenza Vaccine (#1) 2025 , 08/15/2020, 09/18/2019, Additional history exists RSV Adult > 60+ Yrs or (1 - 1-dose 75+ series) 2025 Pneumococcal Vaccine Completed 05/03/2017, 01/02/20 16 Hepatitis B Vaccines Aged Out No long er eligible based on patient's age to complete this topic RSV Ped < 20 months Aged Out No longe r eligible based on patient's age to complete this topic Care Teams Field Installer Relationship Specialty Start Date End Date Anny Sanchez MD PCP - General Internal Medicine 03/28/19
--- OUTSIDE RECORDS SUMMARY | 2025-09-14 10:56 | XMS_ITS | Encounter Summary ---
Author Organization [facility] Address [address] [place] [address] Care Team Providers Care Environmental Field Technician Name Role Phone Taras Shelton MD Primary Care Provider [phone] Taras Shelton MD Unavailable [phone] Meredith Liana DO Unavailable [phone] Encounter Details Date Type Department Care Team (Late st Contact Info) Description 06/12/2009 Hospital Visit [facility] OUT[facility] Ashvin Lambert MD [address] [place] [address] [address] [place] [address] Social History Tobacco Use Types Packs/Day Years [...] Comments XR LUMBAR SPINE AP AND LATERAL 06/12/2009 1:01 PM EDT documented in this encounter Results * XR LUMBAR SPINE AP AND LATERAL (06/12/2009 1:01 PM EDT) Anatomical Region Laterality Modality T-spine, L-spine, Pelvis Other 06/12/2009 1:01 PM EDT Narrative 06/13/2009 11:39 AM EDT DATE: 06/12/2009 13:1 ORDERED EXAM: LUMBAR SPINE EXAM: LUMBAR RADIOGRAPHY 06/12/2009 INDICATION: Check lumbar fusion which was performed 05/02/2009. TECHNIQUE: Frontal and lateral views of the lumbar spine are compared with intraoperative radiography performed 05/02/[address] of the lumbar spine performed 01/22/2009. FINDINGS: There are bilateral fusion rods, with bipediculate screws spanning from L3 to the first sacral segment. There have been bilateral laminectomies at these levels. There is very mild anterolisthesis of L3 on L4 of 2 mm. IMPRESSION: Marked improvement from preoperative study with regards to alignment. There is very mild anterolisthesis of L3 on L4. Approved Result / Electronically Signed by SUE OROSCO 14-Jun-2009 16:22 end of result us Ashvin Lambert MD IMG DIAGNOSTIC IMAGING ORDERABL ES Final Result documented in this encounter Visit Diagnoses Not on filedocumented in this encounter Care Teams Environmental Field Technician Relationship Specialty Start Date End Date Taras Shelton MD [address] [place] [address] PCP - General 06/28/08 Taras Shelton MD [address] [place] [address] PCP - Hospital (change to care team) 09/30/09 08/18/16 Liana Harper DO [address] [place] [phone] PCP - Neuromusculoskeletal Med and OMM (change to care team) 04/14/11 07/01/16 documented as of this encounter
--- OUTSIDE RECORDS SUMMARY | 2025-09-14 10:56 | XMS_ITS | Encounter Summary ---
Author Organization [facility] Address [address] [place] [address] Care Team Providers Care Applied Statistician Name Role Phone Taras Shelton MD Primary Care Provider [phone] Taras Shelton MD Unavailable [phone] Meredith Liana DO Unavailable [phone] Encounter Details Date Type Department Care Team (Late st Contact Info) Description 01/22/2009 Hospital Visit [facility] OUTPATIENT Ashvin Lambert MD [address] [place] [address] [address] [place] [address] Social History Tobacco Use Types Packs/Day Years [...] Procedure Name Priority Date/Time Associated Diagnosis Comments RF MYELOGRAM LUMBOSACRAL WITH CT 01/22/2009 9:[address] SPINE LUMBAR W CONTRAST 01/22/2009 9:04 AM EST documented in this encounter Results * CT LUMBAR SPINE W CONTRAST (01/22/2009 9:04 AM EST) Anatomical Region Laterality Modality T-spine Computed Tomogra phy 01/22/2009 9:04 AM EST Narrative 01/22/2009 12:53 PM EST DATE: 01/22/2009 9:4 ORDERED EXAM: CT LUMBAR, POST MYELOGRAM EXAM: POST-MYELOGRAM CT OF THE LUMBAR SPINE 01/22/09 INDICATIONS: Back and buttock pain. FINDINGS: Helical 2.5 mm slices were obtained through the lumbar spine approximately 90 minutes after the lumbar myelogram. In addition to routine axial images, high resolution sagittal and coronal reconstructions were produced. The current myelogram and the prior MRI are available for comparison. Axial images of the T12-L1 are normal. L1-2 is normal. L2-3 shows a mild disc bulge but no disc herniation or neural compromise. At L3-4 there is moderate facet joint hypertrophy bilaterally. There is mild hypertrophy of the ligamentum flavum on both sides. There is loss of articular cartilage on both sides and there is a small vacuum cleft in the right sided facet joint. There is borderline narrowing of the neural foramina bilaterally. The stenosis at this level was equivalent on the upright myelographic images and there is no apparent subluxation at this level. At L4-5 there is advanced facet joint arthritis with bony hypertrophy of the facets. There is mild rotatory scoliosis at this level due to asymmetry of the facet joint arthritis. There is a diffuse disc bulge. There is significant bilateral lateral recess narrowing. The spinal canal is moderately stenotic with the patient lying supine and was more stenotic when the patient was upright. In addition to canal and lateral recess stenosis, there appears to be bilateral foraminal stenosis, particularly on the right. At L5-S1 there is minimal facet joint arthritis. There is no disc herniation or neural compromise. 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 This causes extensive chronic remodeling of these portions of the sacrum. This is likely chronic and is certainly unchanged from the MRI from 11/05/08. There is some contrast getting into the cyst. It is not vigorous flow and after 90 minutes only a small amount of contrast is layering in the dependent portion of the cyst. 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 Having made that comment, I would also note that it is impossible to see where this cyst arises and it does not lateralize to either side. 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 The S1 roots are clearly not effected by the process. The S2 roots are probably compromised to some degree on both sides. IMPRESSION: 1. Significant degenerative spinal stenosis and rotatory scoliosis at L4-5. 2. Borderline lateral recess stenosis bilaterally at L3-4. 3. 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 Approved Result / Electronically Signed by MAC SHOEMAKER 22-Jan-2009 13:18 end of result us Ashvin Lambert MD IMG CT ORDERABLES Final Result * FL MYELOGRAM LUMBAR (01/22/2009 9:04 AM EST) Anatomical Region Laterality Modality L-spine, T-spine, Abdomen, Pelvis Radio Fluoroscopy 01/22/2009 9:04 AM EST Narrative 01/22/2009 12:44 PM EST DATE: 01/22/2009 9:4 ORDERED EXAM: MYELOGRAM LUMBAR EXAM: LUMBAR MYELOGRAM ON 01/22/09 INDICATION: Back and buttock pain, known sacral cyst. FINDINGS: A routine lumbar myelogram was performed by Dr. Mars under my direct supervision. Lumbar puncture was performed at the right of midline at the L3 level. Twelve cc's of Optiray 240 was instilled without difficulty. Multiple spot films were obtained. The initial imaging shows temporary blockage of the spinal canal at the L4-5 level. There is also a moderately severe stenosis at L3-4. There is swelling of the root at the cauda equina above the L4-5 level indicating swelling of the nerve roots and the significance of the L4-5 stenosis. The patient was allowed to sit in a chair for five minutes before additional imaging to allow contrast to flow into the lower spinal canal. There is no gross filling of the sacral cyst on the fluoroscopic imaging. CT to follow up. The lateral flexion-extension views show definite subluxation of L4 on L5 which worsens when the patient flexes. Although the subluxation worsens at L4-5 and the flexed position, the overall spinal canal improves in diameter during this maneuver. There is also mild anterior slippage of L3 on L4, which may or may not accentuate. There is also borderline canal narrowing at L2-3, which is probably not significant. IMPRESSION: There is significant spinal stenosis at L4-5 involving the central canal on both lateral recesses. There is borderline lateral recess narrowing bilaterally at L2-3 and L3-4, which is less likely to be clinically significant. There is no immediate filling of the sacral cyst. CT to follow up. Approved Result / Electronically Signed by MAC SHOEMAKER 22-Jan-2009 13:17 end of result us Ashvin Lambert MD IMG IR ORDERABLES Final Result documented in this encounter Visit Diagnoses Not on filedocumented in this encounter Care Teams Applied Statistician Relationship Specialty Start Date End Date Taras Shelton MD [address] [place] [address] PCP - General 06/28/08 Taras Shelton MD [address] [place] [address] PCP - Hospital (change to care team) 09/30/09 08/18/16 Liana Harper DO [address] [place] [phone] PCP - Neuromusculoskeletal Med and OMM (change to care team) 04/14/11 07/01/16 documented as of this encounter
--- OUTSIDE RECORDS SUMMARY | 2025-09-14 10:56 | XMS_ITS | Encounter Summary ---
Author Organization [facility] Address [address] [place] [address] Care Team Providers Care Game Warden Name Role Phone Taras Shelton MD Primary Care Provider [phone] Taras Shelton MD Unavailable [phone] Meredith Liana DO Unavailable [phone] Encounter Details Date Type Department Care Team (Latest Contact Info) Description 05/02/2009 Hospital Visit [facility] INPATIENT Ashvin Lambert MD [address] [place] [address] Dr [address] [place] [address] Social History Tobacco Use Types Packs/Day Years Used Date Smoking Tobacco: Never Assessed Comments Unknown Sex and Gender Information Value Date Recorded Sex Assigned at Not on file Legal Sex Female 6:51 AM EST Gender Identity Not on file Sexual Orientation Not on file documented as of this encounter Discharge Summaries * Sarthak Smith PA - 05/14/2009 12:05 PM EDT PATTI GIANG [id number] LOC: DISCH ADM: 05/02/2009 DISCH: 05/09/2009 PRINCIPAL DIAGNOSIS: L3 through S1 stenosis, scoliosis. ASSOCIATED DIAGNOSIS: Spondylolisthesis. OPERATIONS AND PROCEDURES: An L3 through S1 decompressive laminectomy with medial facetectomy and foraminotomies L3-4-5, local bone graft harvest, L3-4, L4-5 and L5-S1 posterior lumbar interbody fusion with local bone graft and PEEK spacers; posterior lateral intertransverse fusion with Actifuse in local bone, L3-4 through L5-S1 pedicle screw and sisi instrumentation. DISPOSITION: The patient is discharged home in satisfactory condition with her usual lumbar fusion instruction sheet; also with prescriptions for oxycodone 5 mg 1-2 tablets by mouth every 3-4 hours as needed pain, dispense 100, OxyContin 10 mg 1 tablet by mouth every 12 hours, 60 tablets and Flexeril 10 mg, dispense 90. CONDITION: Satisfactory. HISTORY: The patient is known to the neurosurgery practice, having undergone surgery for spinal stenosis and spondylolisthesis in the past. She presents with progressive complaints of back and bilateral radiating lower extremity pain, right worse than left. The pain is exacerbated by ambulation. She denied any weakness or any bowel or bladder dysfunction. PHYSICAL EXAMINATION: Motor exam in the bilateral lower extremities, 5/5. Sensation to pin decreased right anterior thigh medial foreleg consistent with L4 distribution. Reflexes 2-+3 at the knees, absent at the ankles, no clonus, able to walk on heels and toes and perform single leg knee bends and toe raises. HOSPITAL COURSE: The patient was admitted 05/02/09 and under general endotracheal anesthesia underwent the above-mentioned procedure. Postoperative check revealed the patient to be comfortable. Epidural catheter was intact and functioning well. Postoperative day 1 the epidural catheter gave patient excellent pain relief, although she had some numbness. Long-acting OxyContin was begun on 05/03 as the patient had significant incisional pain still. Her activity was increased; Venodynes were maintained throughout her stay. On 05/03 she was able to get out of bed to the chair with assistance. She remained neurologically intact. Her Constavac drain was discontinued on May 04. CBC had been checked initially on the and her crit was 24.5. A recheck on the was 25.8. It was felt that she was anemic secondary to dilution as her hematocrit rebounded over the next several days. Epidural catheter was discontinued on 05/06. Postoperative day 5, the patient had not had any significant flatus and had no bowel movement. Her Radford was discontinued. Aggressive bowel regime was begun. The patient remained on hydromorphone [employer]RE[facility] COMMISSION[employer] and weaning was begun to oral pain medications. On 05/08 the patient had two successful bowel movements, had excellent bowel sounds; abdomen was soft. Her diet was advanced. She continued to mobilize with PT, OT and nursing staff. She was doing rather well. An ultrasound was performed of her lower extremities on the and no DVT was found. By postoperative day 7, 05/09/09, she had some muscle spasms through the night but some Flexeril easily controlled this. She had no bilateral lower extremity pain. Her incision was clean, dry and intact. She had no nausea, no vomiting, no chest pain, palpitations, or shortness of breath. Her blood pressure did tend to run on the low side, however, she denied any lightheadedness, dizziness, presyncope when sitting or up. She was tolerating by mouth, voiding without any difficulty. The patient did complain of being sedated with the pain medications. Vital signs were stable. S he was afebrile. Incision clean, dry and intact, closed with Steri-Strips. Abdomen was soft and nontender. Bilateral lower extremity motor was 5/5. Just prior to discharge, pain medication was rearranged and she was decreased to OxyContin 10 mg every 12 hours and oxycodone 5 mg 1-2 tablets every 3 hours as needed. The patient was discharged home with services in satisfactory condition. DICTATED BY: Sarthak Lambert MD Attending [facility] Chart Computer Services [phone] /[facility] [id number] cc: Ashvin Shelton MD PRELIMINARY REPORT UNTIL SIGNED BY ATTENDING PHYSICIAN Working Document - Sign in [facility] ASHVIN LAMBERT MD ELECTRONICALLY SIGNED 05/14/2009 12:03 documented in this encounter OR Notes * Op Note - Ashvin Lambert MD - 05/14/2009 12:05 PM EDT PATTI GIANG [id number] OR DATE: 05/02/2009 LOC: R6 PREOPERATIVE DIAGNOSIS: Severe spinal stenosis L3-L4, L4-L5 spondylolisthesis and scoliosis, sacral cyst. POSTOPERATIVE DIAGNOSIS: Severe spinal stenosis L3-L4, L4-L5 spondylolisthesis and scoliosis, sacral cyst. NAME OF PROCEDURE: Decompressive laminectomy with medial facetectomy and foraminotomies L3, L4, L5, local bone graft harvest, L3-L4, L4-L5 and L5-S1 posterior lumbar interbody fusion with local bone graft and peak biosynthetic spacers, L3-L4, L4-L5, L5-S1 posterolateral intertransverse fusion with Actifuse and local bone, L3-L4, L5-S1 pedicle screw sisi instrumentation with [employer] system, epidural catheter placement. SURGEON: Ashvin Lambert MD. SURVEYOR HELPER ROD: Chris Goodwin PA-C. ANESTHESIA: General. PROCEDURE: The patient was brought to the operating room, where general anesthesia was induced. Endotracheal tube was placed. Preoperative antibiotics were given intravenously. The patient was turned to a prone table with care taken to pad all pressure points. Skin of the back was scrubbed and prepped and draped in the usual sterile fashion. A midline incision was made and carried down to the spine. Dissection was carried out in a subperiosteal fashion elevating the paraspinal muscles lateral to the facets and out over the transverse processes from L3 to the sacrum. Care was taken to avoid the lower sacral levels, where the cyst was noted to have thinned the posterior elements. All segments of the spine identified appeared to be hypermobile when manipulated with a Peace instrument. Marked synovial hypertrophy and facet hypertrophy at the L3-L4 and L4-L5 levels was noted along with this excessive motion. The soft tissue was cleaned off the posterior elements, and local bone graft harvested from spinous processes of L3, L4, L5 along with laminar bone. A TPS drill was used to thin the lamina down to ligamentum. Kerrison punches were used to carry out laminectomies of L5, L4, L3. Marked synovial and facet hypertrophy was noted laterally, and this was dissected free from the dura with a dental instrument and then resected with a combination of drill and Kerrisons. Upon completion, the midline thecal sac was well decompressed. Attention was now turned to undercutting the foramina at each level such that the L3, L4 and L5 roots and their exiting course were free of any compression. The S1 nerve roots were also widely decompressed by undercutting the rostral S1 lamina. Upon completion, the neural elements were now nicely free of any compression. The slip at L4-L5 was evident. Attention was now turned to the fusion. Working first on the left at L5-S1, aggressive diskectomy was carried out using a combination of cutting curets and drill. With care taken to protect the overlying neural elements, a trial was placed, and then an appropriate-sized speak spacer was packed with Actifuse in preparation. Local bone graft was packed into the anterior disk space after preparing the endplates and then with gentle retraction of the nerve root, the peak spacer was impacted into position corrected medially. After being deployed it sat very securely in the space, and no graft material extruded. Attention was now turned to the right L4-L5 space, given the scoliosis. Diskectomy was initiated on the right at L4-L5 and in similar fashion after emptying the disk space, the local bone graft was packed in and followed by a peak spacer of appropriate size with attempt made to elevate the right side of the disk space. After deployment it sat securely, and the neural elements were nicely free of any impingement. Attention was now turned to the left at L3-L4, where again a diskectomy was carried out with preparation of the endplates. Bone graft was packed in, and then another peak spacer placed after trial sizing with this directed medially. Upon completion, the wound was thoroughly irrigated, and all the implants sat securely with no extrusion of implants or graft material and excellent decompression of the neural elements. The transverse processes, lateral pars and facet capsules were all now thoroughly decorticated with the TPS drill. This was in preparation for the posterolateral fusion. C-arm was now used continuously for placement of hardware. Working first from the sacrum on the left side and then rostrally, the pedicle was localized and entered with a TPS drill. Pedicle sound was placed, and then a ball probe used to confirm that there was no breach of the cortex. Screws were placed in a sequential fashion, S1, L5, L4, L3 on the left with confirmation of excellent radiographic appearance, no breach of cortex evident by palpation with a ball probe and no breach medially by direct inspection using a dental instrument and looking at the exiting nerve root at each level. This was then carried out on the right side in the same manner. After placing the hardware and confirming excellent bone purchase at each level, connecting rods were applied, and then top blockers attached and tightened with the standard torque wrench. After the rods were placed, Actifuse and remaining local bone graft was packed out laterally over the decorticated surfaces of the facets and transverse processes. Care was taken to ensure that this material did not extrude over the dura. Cross links were applied and tightened. The construct had an excellent appearance. Screw placement. Final x-ray had been obtained intraoperative. A fat graft was harvested and laid over the dura over the lateral recesses and Gelfoam over the midline dura. An epidural catheter was now prepared. After dissecting the rostral epidural space, I was eventually able to pass the catheter a distance of about 10 cm, and then it was brought out through a Tuohy needle port. The catheter filter was attached. A subfascial drain was placed and brought out through a tunneling device. The wound was thoroughly irrigated and hemostasis secured. Local anesthetic was administered. Fascia and skin were closed in layers and dressings applied. The patient was turned to a stretcher, extubated and taken t o recovery in stable condition. There were no complications, and she tolerated the procedure well. DICTATED BY: Ashvin Lambert MD Attending [facility] Chart [employer] [phone] /[id number] cc: Ashvin Shelton MD PRELIMINARY REPORT UNTIL SIGNED BY ATTENDING PHYSICIAN Working Document - Sign in [facility] ASHVIN LAMBERT MD ELECTRONICALLY SIGNED 05/14/2009 12:02 documented in this encounter Plan of Treatment Not on file documented as of this encounter Procedures Procedure Name Priority Date/Time Associated Diagnosis Comments GLOMERULAR FILTRATION RATE ESTIMATED Routine 05/09/2009 5:40 AM EDT CBC + DIFFERENTIAL Routine 05/09/2009 5: 40 AM EDT BASIC METABOLIC PANEL Routine 05/09/2009 5:40 AM EDT US LEG BILATERAL VENOUS 05/08/2009 7:42 AM EDT CBC + DIFFERENTIAL Routine 05/05/2009 8: 05 AM EDT CBC + DIFFERENTIAL Routine 05/04/2009 8: 57 AM EDT CBC W/O DIFFERENTIAL Routine 05/03/2009 10:10 AM EDT US INFANT HIPS DYNAMIC 05/02/2009 4:03 PM EDT documented in this encounter Results * ESTIMATED GLOMERULAR FILTRATION RATE (05/09/2009 5:40 AM EDT) EGFR Non- > 60 >60 [facility] EGFR [...] patients, particularly those with acute renal failure). 05/09/2009 5:40 AM EDT 05/09/2009 5:46 AM EDT [facility] PAC CHEMISTRY ORDERABLES Fi nal Result Performing Organization Address City/[facility] Co de Phone Number [facility] [address] [place] [address] * BASIC METABOLIC PANEL (05/09/2009 5:40 AM EDT) Pathologist [facility] Sodium 135 133 - 145 mEq/L [facility] Potassium Plasma 3.5 3.3 - 5.3 mEq/L [facility] Chloride 99 96 - 108 mEq/L [facility] Carbon Dioxide 28 22 - 29 mEq/L [facility] Anion Gap 8 7 - 16 [facility] Glucose 105 70 - 105 mg/dL [facility] Blood Urea Nitrogen 6 6 - 19 mg/dL [facility] Creatinine 0.59 0.50 - 1.30 mg/dL [facility] BUN Creatinine Ratio 10.2 [facility] Calcium 9.1 8.6 - 10.4 mg/dL [facility] 05/09/2009 5:40 AM EDT 05/09/2009 5:46 AM EDT [facility] PAC CHEMISTRY ORDERABLES Fi nal Result Performing Organization Address City/[facility] Co de Phone Number [facility] [address] [facility], [address] [place] [address] * (ABNORMAL) CBC WITH DIFF (05/09/2009 5:40 AM EDT) White Blood Count 6.8 4.2 - 10.2 Thou/uL [facility] Erythrocytes 2.96(L) 3.80 - 5.10 Mil/uL [facility] Hemoglobin 8.8(L) 11.8 - 15.8 g/dL [facility] Hematocrit 26.8(L) 35.0 - 47.0 % [facility] Mean Corpuscular Volume 90.5 80.0 - 100.0 fL [facility] Mean Corpuscular Hemoglobin 29.7 26.0 - 34.0 pg [facility] Mean Corpuscular Hemoglobin Conc 32.8 32.0 - 36.0 g/dL [facility] Platelet Count 336 140 - 440 Thou/uL [facility] Erythrocyte Distribution Width SD 40.5 37.0 - 48.0 fL [facility] Erythrocyte Distribution Width CV 12.2 12.0 - 14.6 % [facility] Polymorphonuclear Percent 53 47 - 80 % [facility] Lymphocytes Percent 36 14 - 46 % [facility] Monocytes Percent 7 5 - 12 % [facility] Basophils Percent 0 0 - 2 % [facility] Eosinophils Percent 3 0 - 5 % [facility] Neutrophils Absolute 3.61 2.40 - 7.60 Thou/uL [facility] Lymphocytes Absolute 2.46 1.00 - 3.30 Thou/uL [facility] Monocytes Absolute 0.48 0.30 - 0.90 Thou/uL [facility] Basophils Absolute 0.02 0.00 - 0.12 Thou/uL [facility] Eosinophils Absolute 0.18 0.00 - 0.40 Thou/uL [facility] 05/09/2009 5:40 AM EDT 05/09/2009 5:46 AM EDT Rowan Cruz PAC HEMATOLOGY ORDERABLES F inal Result [facility] [address] [place] [id number] * US LEG BILATERAL VENOUS (05/08/2009 7:42 AM EDT) Anatomical Region Laterality Modality Vascular, Thigh, Leg Other 05/08/2009 7:42 AM EDT Narrative 05/08/2009 11:02 AM EDT DATE: 05/08/2009 7:42 ORDERED EXAM: US VENOUS, DVT LEG BILAT EXAM: BILATERAL LOWER EXTREMITY VENOUS DUPLEX INDICATION: Venous stasis. Question DVT. Status post L3-S1 fusion. COMPARISON: No prior study. FINDINGS: Hayes scale, color Doppler and pulsed Dopplerevaluation of the deep venous system of bilateral lower extremities was performed from the level of the groin to the upper calf. There is normal venous compressibility, respiratoryphasicity and augmentation with no evidence of thrombosis. IMPRESSION: No evidence of deep vein thrombosis. Approved Result / Electronically Signed by CIELO SCOTT 08-May-2009 05:28 PM end of result Maria Del Rosario Williamson PAC [facility] US ORDERABLES Final Result * (ABNORMAL) CBC WITH DIFF (05/05/2009 8:05 AM EDT) White Blood Count 8.4 4.2 - 10.2 Thou/uL [facility] Erythrocytes 2.97(L) 3.80 - 5.10 Mil/uL [facility] Hemoglobin 8.9(L) 11.8 - 15.8 g/dL [facility] Hematocrit 27.1(L) 35.0 - 47.0 % [facility] Mean Corpuscular Volume 91.2 80.0 - 100.0 fL [facility] Mean Corpuscular Hemoglobin 30.0 26.0 - 34.0 pg [facility] Mean Corpuscular Hemoglobin Conc 32.8 32.0 - 36.0 g/dL [facility] Platelet Count 201 140 - 440 Thou/uL [facility] Erythrocyte Distribution Width SD 40.5 37.0 - 48.0 fL [facility] Erythrocyte Distribution Width CV 12.0 12.0 - 14.6 % [facility] Polymorphonuclear Percent 92(H) 47 - 80 % [facility] Lymphocytes Percent 6(L) 14 - 46 % [facility] Monocytes Percent 2(L) 5 - 12 % [facility] Basophils Percent 0 0 - 2 % [facility] Eosinophils Percent 0 0 - 5 % [facility] Neutrophils Absolute 7.72(H) 2.40 - 7.60 Thou/uL [facility] Lymphocytes Absolute 0.50(L) 1.00 - 3.30 Thou/uL [facility] Monocytes Absolute 0.19(L) 0.30 - 0.90 Thou/uL [facility] Basophils Absolute 0.00 0.00 - 0.12 Thou/uL [facility] Eosinophils Absolute 0.00 0.00 - 0.40 Thou/uL [facility] 05/05/2009 8:05 AM EDT 05/05/2009 8:34 AM EDT Simeon Desai HEMATOLOGY ORDERABLES Cathleen l Result [facility] [address], [address] [place] [address] * (ABNORMAL) CBC WITH DIFF (05/04/2009 8:57 AM EDT) White Blood Count 9.2 4.2 - 10.2 Thou/uL [facility] Erythrocytes 2.78(L) 3.80 - 5.10 Mil/uL [facility] Hemoglobin 8.5(L) 11.8 - 15.8 g/dL [facility] Hematocrit 25.8(L) 35.0 - 47.0 % [facility] Mean Corpuscular Volume 92.8 80.0 - 100.0 fL [facility] Mean Corpuscular Hemoglobin 30.6 26.0 - 34.0 pg [facility] Mean Corpuscular Hemoglobin Conc 32.9 32.0 - 36.0 g/dL [facility] Platelet Count 180 140 - 440 Thou/uL [facility] Erythrocyte Distribution Width SD 42.6 37.0 - 48.0 fL [facility] Erythrocyte Distribution Width CV 12.5 12.0 - 14.6 % [facility] Polymorphonuclear Percent 76 47 - 80 % [facility] Lymphocytes Percent 17 14 - 46 % [facility] Monocytes Percent 7 5 - 12 % [facility] Basophils Percent 0 0 - 2 % [facility] Eosinophils Percent 1 0 - 5 % [facility] Neutrophils Absolute 7.00 2.40 - 7.60 Thou/uL [facility] Lymphocytes Absolute 1.54 1.00 - 3.30 Thou/uL [facility] Monocytes Absolute 0.61 0.30 - 0.90 Thou/uL [facility] Basophils Absolute 0.01 0.00 - 0.12 Thou/uL [facility] Eosinophils Absolute 0.06 0.00 - 0.40 Thou/uL [facility] 05/04/2009 8:57 AM EDT 05/04/2009 9:02 AM EDT us Simeon Desai HEMATOLOGY ORDERABLES Cathleen l Result [facility] [address], [address] [place] [phone] * (ABNORMAL) CBC WITHOUT DIFFERENTIAL (05/03/2009 10:10 AM EDT) White Blood Count 9.1 4.2 - 10.2 Thou/uL [facility] Erythrocytes 2.63(L) 3.80 - 5.10 Mil/uL [facility] Hemoglobin 8.1(L) 11.8 - 15.8 g/dL [facility] Hematocrit 24.3(L) 35.0 - 47.0 % [facility] Mean Corpuscular Volume 92.4 80.0 - 100.0 fL [facility] Mean Corpuscular Hemoglobin 30.8 26.0 - 34.0 pg [facility] Mean Corpuscular Hemoglobin Conc 33.3 32.0 - 36.0 g/dL [facility] Platelet Count 197 140 - 440 Thou/uL [facility] Erythrocyte Distribution Width SD 42.6 37.0 - 48.0 fL [facility] Erythrocyte Distribution Width CV 12.5 12.0 - 14.6 % [facility] 05/03/2009 10:1 0 AM EDT 05/03/2009 10:21 AM EDT us Stephanie Ghotra PAC HEMATOLOGY ORDERABLES Fi nal Result [facility] [address] [place] [phone] * US HIPS (05/02/2009 4:03 PM EDT) Anatomical Region Laterality Modality Hip Ultrasound 05/02/2009 4:03 PM EDT Narrative 05/03/2009 12:31 PM EDT DATE: 05/02/2009 16:3 ORDERED EXAM: LUMBAR SPINE SINGLE VIEW EXAM: LUMBAR SPINE INDICATION: Lumbar stenosis. FINDINGS: Examination is a single digital lateral image of the lumbar spine during a posterior lumbar fusion. This is not for osseous detail. IMPRESSION: As above. Approved Result / Electronically Signed by MAG ATKINSON 05-May-2009 13:52 end of result us Ashvin Lambert MD [facility] ORDERABLES Final Result documented in this encounter Visit Diagnoses Not on filedocumented in this encounter Care Teams Game Warden Relationship Specialty Start Date End Date Taras Shelton MD [address] [place] [id number] PCP - General 06/28/08 Taras Shelton MD [address] [place] [id number] PCP - Hospital (change to care team) 09/30/09 08/18/16 Liana Harper DO [address] [place] [id number] PCP - Neuromusculoskeletal Med and OMM (change to care team) 04/14/11 07/01/16 documented as of this encounter
--- OUTSIDE RECORDS SUMMARY | 2025-09-14 10:56 | XMS_ITS | Encounter Summary ---
Author Organization [facility] Address [address] [place] [address] Care Team Providers Care Toll Settlement Clerk Name Role Phone Taras Shelton MD Primary Care Provider [phone] Taras Shelton MD Unavailable [phone] Liana Harper DO Unavailable [phone] Encounter Details Date Type Department Care Team (Late st Contact Info) Description 06/28/2008 Hospital Visit [facility] OUTPATIENT Ashvin Lambert MD [address] [place] [address] [address] [place] [address] Social History Tobacco Use Types Packs/Day Years [...] on filedocumented in this encounter Care Teams Toll Settlement Clerk Relationship Specialty Start Date End Date Taras Shelton MD [address] [place] [address] PCP - General 06/28/08 Taras Shelton MD [address] [place] [address] PCP - Hospital (change to care team) 09/30/09 08/18/16 Liana Harper DO [address] [place] [phone] PCP - Neuromusculoskeletal Med and OMM (change to care team) 04/14/11 07/01/16 documented as of this encounter
== END 2025-09-14 11:26 | disposition home or self-care (01) ==
PROVIDERS: PCP Internal Medicine; Referring Provider Physical Medicine & Rehabilitation; Visit Provider Physician Assistant
DX: M50.90 Cervical disc disorder, unspecified, unspecified cervical region (principal)
CPT/HCPCS: 99204

== ENCOUNTER → 2025-09-14 10:46 | Outpatient (BNV) | payer MEDICARE, SELFPAY | PROVIDERS: PCP Internal Medicine; Referring Provider Physical Medicine & Rehabilitation; Visit Provider Radiology Diagnostic Radiology | DX: M50.90 Cervical disc disorder, unspecified, unspecified cervical region (principal) | CPT/HCPCS: 72050 ==

== ENCOUNTER 2025-10-12 14:09 | Outpatient (AMB) | payer MEDICARE, SELFPAY ==
--- NOTE | 2025-10-12 14:11 | HO.SPINEOV ---
Intake Visit Reasons: Follow up with in office Intake Note: Ms. Devine is here today for a F/u. Neonatal Intensive Care Unit Nurse Required: No Allergies buprenorphine (From SUBOXONE) Allergy (Unknown, Verified 09/14/25 10:06) STOMACH UPSET desipramine (From NORPRAMIN) Allergy (Unknown, Verified 09/14/25 10:06) HIVES naloxone (From SUBOXONE) Allergy (Unknown, Verified 09/14/25 10:06) STOMACH UPSET Assessment & Plan Assessment & Plan (1) Cervical disc disorder: Code(s): M50.90 - Cervical disc disorder, unspecified, unspecified cervical region Category: Medical Plan Mrs Devine came back in today in follow-up to meet Dr. Mcgee and go over her surgery again. She has neck pain with previous ACDF C4-7, with new spondylolisthesis C3-4 and we are planning on C3-4 ACDF with stand-alone cage and an anterior plate. We will also have to remove her previous plate from C4-C7 at the same time. Therefore we will keep her in the hospital for 1 night and discharge her in the morning just to monitor for postoperative issues swallowing. Dr. Mcgee and I sat down and went over her procedure with her again at length. The patient was given risk and benefits of surgery including but not limited to infection, hematoma, nerve injury, durotomy, weakness, persistent pain. We discussed that if undergoing anterior cervical fusion there may be trachea or esophageal injury, hoarseness, or difficulty swallowing. There is a risk of pseudoarthrosis or instrumentation failure if undergoing cervical fusion. We also reviewed the option to continue with conservative treatment and patient wishes to proceed with surgery. They are aware they should stop aspirin 7 days prior to surgery, and her vitamins and supplements 2 weeks before surgery. All questions were answered to the best of our ability. If there is anything about this patient's medical history that we have overlooked or concerns you have about us proceeding with surgery we would appreciate any input you can offer Total amount of time spent in this visit was 20 minutes in discussion of symptoms, cervical MRI and x-rays imaging results and subsequent plan of care Vernon Mcgee MD,PhD [facility] Coding Level of Care Code Est Pt Level 3 (10776) Diagnoses Cervical disc disorder M50.90
--- OUTSIDE RECORDS SUMMARY | 2025-10-12 21:02 | XMS_ITS | Encounter Summary ---
Author Organization [facility] Address [address] [place] [address] Care Team Providers Care Photonics Engineer Name Role Phone Taras Shelton MD Primary Care Provider [phone] Taras Shelton MD Unavailable [phone] Liana Harper DO Unavailable [phone] Encounter Details Date Type Department Care Team [...] on filedocumented in this encounter Care Teams Photonics Engineer Relationship Specialty Start Date End Date Taras Shelton MD [address] [place] [address] PCP - General 06/28/08 Taras Shelton MD [address] [place] [address] PCP - Hospital (change to care team) 09/30/09 08/18/16 Liana Harper DO [address] [facility] [address] PCP - Neuromusculoskeletal Med and [facility] (change to care team) 04/14/11 07/01/16 documented as of this encounter
--- OUTSIDE RECORDS SUMMARY | 2025-10-12 21:02 | XMS_ITS | Clinical Summary ---
Author Organization 175 [facility] Address [address] [place] [address] Phone Care Team Providers Care Metal Box Maker Name Role Phone Anny Sanchez MD Primary Care Provider [phone] Allergies Active Allergy Reactions Criticality Noted Date [...] deficiency 01/08/2020 Chronic obstructive pulmonar y disease ([facility] V24, [facility] V28) 08/23/2019 Nocturnal hypoxia 08/23/2019 Spinal [...] PM EDT Hospital Encounter Radiology Department - [address] [address] Spinal stenosis, cervical region; Postlaminectomy syndrome, not elsewhere classified; Radiculopathy, cervical region; Cervicocranial syndrome Discharge Disposition: Home or Self Care 07/31/2025 10:00 AM EDT Consult Adult Medicine [address] [phone] Anny Sanchez MD Preop cardiovascular exam (Primary Dx); Other hyperlipidemia; Gastroesophageal reflux disease without esophagitis; Chronic obstructive pulmonary disease, unspecified COPD type ([facility] V24, [facility] V28); Vitamin D deficiency; Poor dentition 07/24/2025 Telephone Adult Medicine [address] [phone] Anny Sanchez MD from Last 3 Months [...] 12 & older) Biv alent, COVID-19 08/07/2024,07/20/2023 [facility] Covid-19 Bivalent, Or iginal + Ba.1 (Non-US Trademark COMIRNATY Bivalent) 07/20/2023 [facility] SARS-CoV-2 COVID-19, mRNA, LNP-S, preservative free 09/05/2021,02/17/2021,01/27/2021 [...] TUNNEL RELEASE Bilateral OTHER SURGICAL HISTORY 2007 [place] ARTHRD ANT INTERBODY MIN DSC CRV BELOW [...] for your loved ones. For example, child care giver or elderly care for an older adult? [...] 1:00 PM EST Office Visit Pulmonology - [place] [address] [place] [phone] Moo Lozano MD [address] [place] [address] 01/29/2026 8:45 AM EST Office Visit Adult Medicine [facility] [address] [place] [address] Anny Sanchez MD [address] [place], [place] Health Maintenance Due Date Last Done Comments Zoster Vaccines (2 of 2) 02/06/2022 12/12/2021, 04/2012 Osteoporosis Screening (Bone Density Screening) 11/07/2022 Medicare Annual Wellness Visit 08/08/2025 08/08/2024 Social Influencers of Health Screening 01/30/2026 01/30/2025 Falls Risk Assessment 02/05/2026 02/05/2025, 024 COVID-19 Vaccine (9 - Pfizer risk 2024- season) 2026 08/22/2025, 03/14/2025, 08/07/2024, Additional history exists Breast Cancer Screening 11/17/2026 11/17/20, 11/05/2023, 10/27/2022, Additional history exists Colorectal Cancer [...] 01/02/2016 Depression Screening Completed 01/30/2025, 08/08/20 24 Influenza Vaccine Completed 08/22/2025, , 07/20/2024, Additional [...] this topic Medical Devices Implanted Type Area Diamond Powder Mixer Device Identifier Shelf Expiration Date Model / [...] Signed Date: 08/29/2025 20:12 ET Workstation ID: [id number] Transcribed By: Self Edit Transcribed Date: 08/29/2025 [...] Signed Date: 08/29/2025 20:12 ET Workstation ID: [id number] Transcribed By: Self Edit Transcribed Date: 08/29/2025 17:[address] DO IMG MRI PROCEDURES Final Result * (ABNORMAL) ECG 12 lead (07/31/2025 10:59 AM EDT) us Anny Sanchez MD ECG ORDERABLES Final Result * Lipid panel with reflex to direct LDL (03/21/2025 9:17 AM EDT) Cholesterol 165 0 - 200 mg/dL LAB CHEMISTRY METHOD 03/21/2025 12:30 PM EDT [facility] Triglycerides 141 0 - 150 mg/dL LAB CHEMISTRY METHOD 03/21/2025 12:30 PM EDT [facility] HDL 52 >=40 mg/dL LAB CHEMISTRY METHOD 03/21/2025 12:30 PM EDT [facility] LDL Calculated 85 0 - 100 mg/dL LAB CHEMISTRY METHOD 03/21/2025 12:30 PM EDT [facility] VLDL Cholesterol Yunior 28.2 mg/dL LAB CHEMISTRY METHOD 03/21/2025 12:30 PM EDT [facility] Non HDL Chol. (LDL+VLDL) 113 <145 mg/dL LAB CHEMISTRY METHOD 03/21/2025 12:30 PM EDT [facility] Chol/HDL Ratio 3.2 0.0 - 4.4 LAB CHEMISTRY METHOD 03/21/2025 12:30 PM EDT [facility] Blood Venous blood specimen / Unknown Venipuncture / Unknown 03/21/2025 9:17 AM EDT 03/21/2025 9:17 AM EDT us Meredith STONE LAB BLOOD ORDERABLES Final Re sult [facility] [address] [place] [address], [place] [phone] * MG Mammo Digital Screening w Doyle [...] Signed Date: 11/17/2024 16:51 ET Workstation ID: [id number] Transcribed By: Self Edit Transcribed Date: 11/17/2024 16:49 ET Narrative 11/17/2024 4:51 PM EST EXAMINATION TYPE: MAMMO DIGITAL SCREENING W DOYLE BILAT DATE [...] Monet Espinal MD - 11/17/2024 EXAMINATION TYPE: MAMMO DIGITAL SCREENING W DOYLE BILAT DATE [...] Signed Date: 11/17/2024 16:51 ET Workstation ID: [id number] Transcribed By: Self Edit Transcribed Date: 11/17/2024 [...] Recently Relevant to Health Maintenance Insurance MEDICARE [facility] BERTHA SÁNCHEZ [id number] Advance Directives Documents on File Type Date Recorded Patient Business Editor Expl anation Health Care Decision (hx) 06/09/2019 AD BALDERRAMA DIRECTIVE Health Care Decision (hx) 06/09/2019 AD BALDERRAMA DIRECTIVE Health Care Decision (hx) 06/09/2019 AD BALDERRAMA DIRECTIVE Care Teams Metal Box Maker Relationship Specialty Start Date End Date Anny Sanchez MD [address] [place] [phone] PCP - General Internal Medicine 10/11/15
--- OUTSIDE RECORDS SUMMARY | 2025-10-12 21:03 | XMS_ITS | Encounter Summary ---
Author Organization [facility] Address [address] [place] [address] Care Team Providers Care Elevator Repair Mechanic Name Role Phone Taras Shelton MD Primary Care Provider [phone] Taras Shelton MD Unavailable [phone] Liana Harper DO Unavailable [phone] Encounter Details Date Type Department Care Team (Late st Contact Info) Description 06/28/2008 Hospital Visit [facility] OUTPATIENT Ashvin Lambert MD [address] [place] [address] [address] [place] [address] Social History Tobacco Use Types Packs/Day Years [...] on filedocumented in this encounter Care Teams Elevator Repair Mechanic Relationship Specialty Start Date End Date Taras Shelton MD [address] [place] [address] PCP - General 06/28/08 Taras Shelton MD [address] [place] [address] PCP - Hospital (change to care team) 09/30/09 08/18/16 Liana Harper DO [address] [place] [address] PCP - Neuromusculoskeletal Med and OMM (change to care team) 04/14/11 07/01/16 documented as of this encounter
--- OUTSIDE RECORDS SUMMARY | 2025-10-12 21:03 | XMS_ITS | Encounter Summary ---
Author Organization [facility] Address [address] [place] [address] Care Team Providers Care Novelty Maker Name Role Phone Taras Shelton MD Primary Care Provider [phone] Taras Shelton MD Unavailable [phone] Meredith Liana DO Unavailable [phone] Encounter Details Date Type Department Care Team (Late st Contact Info) Description 01/22/2009 Hospital Visit [facility] OUTPATIENT Ashvin Lambert MD [address] [place] [address] Dr [address] [place] [address] Social History Tobacco Use Types Packs/Day Years [...] on filedocumented in this encounter Care Teams Novelty Maker Relationship Specialty Start Date End Date Taras Shelton MD [address] [place] [address] PCP - General 06/28/08 Taras Shelton MD [address] [place] [address] PCP - Hospital (change to care team) 09/30/09 08/18/16 Liana Harper DO [address] [place] [phone] PCP - Neuromusculoskeletal Med and OMM (change to care team) 04/14/11 07/01/16 documented as of this encounter
--- OUTSIDE RECORDS SUMMARY | 2025-10-12 21:03 | XMS_ITS | Encounter Summary ---
Author Organization [facility] Address [address] [place] [address] Care Team Providers Care Tour Actor Name Role Phone Taras Shelton MD Primary Care Provider [phone] Taras Shelton MD Unavailable [phone] Meredith Liana DO Unavailable [phone] Encounter Details Date Type Department Care Team (Late st Contact Info) Description 04/18/2009 Hospital Visit [facility] OUTPATIENT Ashvin Lambert MD [address] [place] [address] Dr [address] [place] [address] Social History Tobacco Use Types Packs/Day Years [...] GLOMERULAR FILTRATION RATE (04/25/2009 2:10 PM EDT) [facility] EGFR Non- > 60 >60 [facility] [...] ORDERABLES Final Resu lt Performing Organization Address [facility] de Phone Number [address], [address] [address] * TYPE AND SCREEN-30 DAY (04/25/2009 2:10 PM EDT) [facility] Results Blood Bank SEE BELOW [facility] Comment: TYPE AND SCREEN 30-DAY: -TYPE A NEG -ANTIBODY SCREEN NEGATIVE 04/25/2009 2:10 PM EDT 04/25/2009 3:37 PM EDT Ashvin Lambert MD BLOOD BANK ORDERABLES Final Res ult Performing Organization Address [facility] de Phone Number [address], [address] [place] [address] * (ABNORMAL) CBC WITH DIFF (04/25/2009 2:10 [...] HEMATOLOGY ORDERABLES Final Res ult [facility] [address], [address] [place] [address] * BASIC METABOLIC PANEL (04/25/2009 2:10 PM [...] CHEMISTRY ORDERABLES Final Resu lt [facility] [address], [address] [place] [address] documented in this encounter Visit Diagnoses Not on filedocumented in this encounter Care Teams Tour Actor Relationship Specialty Start Date End Date Taras Shelton MD [address] [place] [address] PCP - General 06/28/08 Taras Shelton MD [address] [place] [address] PCP - Hospital (change to care team) 09/30/09 08/18/16 Liana Harper DO [address] [place] [phone] PCP - Neuromusculoskeletal Med and OMM (change to care team) 04/14/11 07/01/16 documented as of this encounter
--- OUTSIDE RECORDS SUMMARY | 2025-10-12 21:03 | XMS_ITS | Clinical Summary ---
Author Organization [facility] Address [address] [place] [address] Care Team Providers Care Dairy Quality Assurance Officer Name Role Phone Anny Sanchez MD Primary Care Provider [phone] Allergies Active Allergy Reactions Criticality Noted Date [...] age to complete this topic Care Teams Dairy Quality Assurance Officer Relationship Specialty Start Date End Date Anny Sanchez MD PCP - General Internal Medicine 03/28/19
--- OUTSIDE RECORDS SUMMARY | 2025-10-12 21:03 | XMS_ITS | Clinical Summary ---
Author Organization [facility] Address [address] [place] [address] Care Team Providers Care Database Marketing Manager Name Role Phone Taras Shelton MD Primary Care Provider Medications No known medications Active Problems No known active problems Immunizations Immunization Administration Dates Next Due Pfizer Purple Cap(12+) Covid -19,mrna,lnp-s,pf,0.3ml ([id number]) 02/17/2021,01/27/2021 Social History Tobacco Use Types Packs/Day Years Used Date Smoking Tobacco: Never Assessed Comments Unknown Sex and Gender Information Value Date Recorded Sex Assigned at Not on file Legal Sex Female 6:51 AM EST Gender Identity Not on file Sexual Orientation Not on file Plan of Treatment Not on file Care Teams Database Marketing Manager Relationship Specialty Start Date End Date Taras Shelton MD [address] [place] [address] PCP - General 06/28/08
--- OUTSIDE RECORDS SUMMARY | 2025-10-12 21:03 | XMS_ITS | Encounter Summary ---
Author Organization [facility] Address [address] [place] [address] Care Team Providers Care Client Application Support Specialist Name Role Phone Taras Shelton MD Primary Care Provider [phone] Taras Shelton MD Unavailable [phone] Meredith Liana DO Unavailable [phone] Encounter Details Date Type Department Care Team (Late st Contact Info) Description 09/30/2009 Hospital Visit [facility] OUTPATIENT Ashvin Lambert MD [address] [place] [address] Dr [address] [place] [address] Social History Tobacco Use Types Packs/Day Years [...] on filedocumented in this encounter Care Teams Client Application Support Specialist Relationship Specialty Start Date End Date Taras Shelton MD [address] [place] [address] PCP - General 06/28/08 Taras Shelton MD [address] [place] [address] PCP - Hospital (change to care team) 09/30/09 08/18/16 Liana Harper DO [address] [place] [phone] PCP - Neuromusculoskeletal Med and OMM (change to care team) 04/14/11 07/01/16 documented as of this encounter
--- OUTSIDE RECORDS SUMMARY | 2025-10-12 21:03 | XMS_ITS | Encounter Summary ---
Author Organization [facility] Address [address] [place] [address] Care Team Providers Care Manager Publishing Name Role Phone Taras Shelton MD Primary Care Provider [phone] Taras Shelton MD Unavailable [phone] Meredith Liana DO Unavailable [phone] Encounter Details Date Type Department Care Team (Late st Contact Info) Description 12/18/2008 Hospital Visit [facility] OUTPATIENT Ashvin Lambert MD [address] [place] [address] Dr [address] [place] [address] Social History Tobacco Use Types Packs/Day Years [...] again demonstrated to be status post anterior [place] plate and screw fixation transfixing C4, C5, [...] on filedocumented in this encounter Care Teams Manager Publishing Relationship Specialty Start Date End Date Taras Shelton MD [address] [place] [address] PCP - General 06/28/08 Taras Shelton MD [address] [place] [address] PCP - Hospital (change to care team) 09/30/09 08/18/16 Liana Harper DO [address] [place] [phone] PCP - Neuromusculoskeletal Med and OMM (change to care team) 04/14/11 07/01/16 documented as of this encounter
--- OUTSIDE RECORDS SUMMARY | 2025-10-12 21:03 | XMS_ITS | Encounter Summary ---
Author Organization [facility] Address [address] [place] [address] Care Team Providers Care Store Clerk Cashier Name Role Phone Taras Shelton MD Primary Care Provider Taras Shelton MD Unavailable [phone] Meredith Liana DO Unavailable [phone] Encounter Details Date Type Department Care Team (Late st Contact Info) Description 06/12/2009 Hospital Visit [facility] OUTPATIENT Ashvin Lambert MD [address] [place] [address] Dr [address] [place] [address] Social History Tobacco Use Types Packs/Day Years [...] on filedocumented in this encounter Care Teams Store Clerk Cashier Relationship Specialty Start Date End Date Taras Shelton MD [address] [place] [address] PCP - General 06/28/08 Taras Shelton MD [address] [place] [address] PCP - Hospital (change to care team) 09/30/09 08/18/16 Liana Harper DO [address] [place] [phone] PCP - Neuromusculoskeletal Med and OMM (change to care team) 04/14/11 07/01/16 documented as of this encounter
--- OUTSIDE RECORDS SUMMARY | 2025-10-12 21:03 | XMS_ITS | Data Portability ---
Author Organization [facility], [address] Address [address] [place] [address] Assessment No assessment recorded. Plan of Treatment Reminders Order Date Submit Date Provider Last Modified By Organization Details Last Modified Time Details Appointments None record ed. Lab None record ed. Referral None record ed. Procedures None record ed. Surgeries None record ed. Imaging XR, toe(s) , 2 or more view 023 04/05/20 23 [facility], [address] [place], [address], 13:51:25 Medication Orders None record ed. Patient TargetsNo targets recorded. Patient InstructionsNo instructions recorded. Reason for Referral None Reported. Results Created Date Observation Date Name Description Value Unit Range Abnormal Flag Note LastModifiedBy Organization Detail LastModifiedTime 04/05/20 23 04/05/2023 XR, toe(s ), 2 or more view No observ ation record ed. [email or web address] [facility] [address] [place], [address], 04/05/2023 14:30:44 04/06/20 23 XR, toe(s ), 2 or more view No observ ation record ed. [email or web address] [facility] [address] [place], [address], 04/06/2023 09:08:26 Result Notes None recorded. Problems Name Problem SNOMED Code Status Onset Date Resolution Date Notes Provider Name and Address Organization Details Recorded Time Depressive disorder 98852325 Active 2022 [facility] 3 12:04:52 Arthritis 0831499 Active 2022 GOLDEN mandujano, [place] - [facility] 3 12:05:06 Hyperlipidemia 30049685 Active 2022 GOLDEN mandujano, [place] - [facility] 3 12:05:16 Problem Notes None recorded. Procedures Surgical History Date Name Laterality Status Provider Name and Address Organization Details Recorded Time total knee replacement completed GOLDEN CARDENAS PA - [facility] 04/05/2023 12:06:47 Carpal tunnel surgery completed [facility] - [facility] 04/05/2023 12:06:53 Imaging Results None recorded. Procedure Notes None recorded. Medical Equipment None Reported. Allergies Allergen ID Allergen Name Allergen Category Reaction Reaction Severity Criticality Documentation Date Start Date Code Code System Note Provider Name and Address Organization Details Recorded Time 969045 Norpramin medicatio n Not available Not available Not available 04/05/202341456 1 RxNorm G[facility]EN [facility]ujano, [facility] - [facility] [...] Updated DateTime 3 157.48 cm 27.4 kg/m2 59800.8 6 g 98.2 [degF] 18 /min 68 /min 97 % 97 % 135/84 mm[Hg] GOLDEN Frye PA - [facility] 12:08:23 Social History Question Answer Notes LastModified by Etogasat ion Details LastModified Time Tobacco Smoking Status [...] ICD10 Code Diagnosis IMO Codes Diagnosis Note [id number] [facility] [address] [place] [address] 12/23/2017 09:27:16 12/23/2017 10:10:41 [id number] [address] [place] [address] 08/04/2022 10:14:13 08/04/2022 12:12:34 [id number] [address] [place] [address] 09/30/2019 14:08:49 09/30/2019 14:31:52 [id number] [address] [place] [address] 04/16/2022 11:00:26 04/16/2022 12:55:50 [id number] Maria Espinosa MD [address] [place] [address] 04/05/2023 09:52:04 04/05/2023 13:07:09 Pain of toe of left foot [id number] 99505 M79.675 Initial reading of the Xray shows [...] [place]IC[place]: [employer] Patti Devine [id number] Patti Devine 04/05/2023 2 [employer] (MEDICARE SUPPLEMENT) Patti Devine [id number] Patti Devine Notes Date Note Type Note Provider Name and Address Organization Details Recorded Time 04/05/2023 text/html ToesReported by PatientHPIFor location, patient reportsleft. For quality, patient reportssharp. For severity, patient reportsmoderate. For timing, patient reportsacute. For aggravating factors, patient reportswalking. Maria Espinosa MD [address] [place], [address], [place] - [facility] 04/05/2023 13:11:26 OBGyn Episode No OBEpisode recorded.
--- OUTSIDE RECORDS SUMMARY | 2025-10-12 21:03 | XMS_ITS | Encounter Summary ---
Author Organization [facility] Address [address] [place] [address] Care Team Providers Care Operations Specialist Name Role Phone Taras Shelton MD Primary Care Provider [phone] Taras Shelton MD Unavailable [phone] Meredith Liana DO Unavailable [phone] Encounter Details Date Type Department Care Team (Latest Contact Info) Description 05/02/2009 Hospital Visit [facility] INPATIENT Ashvin Lambert MD [address] [place] [address] Dr [address] [place] [address] Social History Tobacco Use Types Packs/Day Years Used Date Smoking Tobacco: Never Assessed Comments Unknown Sex and Gender Information Value Date Recorded Sex Assigned at Not on file Legal Sex Female 6:51 AM EST Gender Identity Not on file Sexual Orientation Not on file documented as of this encounter Discharge Summaries * Sarthak Smith PA - 05/14/2009 12:05 PM EDT PATTI GIANG [id number] LOC: DISCH ADM: 05/02/2009 DISCH: 05/09/2009 PRINCIPAL [...] was begun. The patient remained on hydromorphone DRY PLASTERER HELPER and weaning was begun to oral pain [...] condition. DICTATED BY: Sarthak Lambert MD Attending [facility] [employer] [phone] /[facility] [id number] cc: Ashvin Shelton MD PRELIMINARY REPORT UNTIL SIGNED BY ATTENDING PHYSICIAN Working Document - Sign in [facility] ASHVIN LAMBERT MD ELECTRONICALLY SIGNED 05/14/2009 12:03 documented in this encounter OR Notes * Op Note - Ashvin Lambert MD - 05/14/2009 12:05 PM EDT PATTI GIANG [id number] OR DATE: 05/02/2009 LOC: R6 PREOPERATIVE DIAGNOSIS: [...] L3-L4, L5-S1 pedicle screw sisi instrumentation with inkSIG Digital system, epidural catheter placement. SURGEON: Ashvin Lambert MD. STEWARD/STEWARDESS TOURIST CLASS: Chris Goodwin PA-C. ANESTHESIA: General. PROCEDURE: The [...] well. DICTATED BY: Ashvin Lambert MD Attending [facility] [employer] [phone] /[id number] [phone] cc: Ashvin Shelton MD PRELIMINARY REPORT UNTIL SIGNED BY ATTENDING PHYSICIAN Working Document - Sign in [facility] ASHVIN LAMBERT MD ELECTRONICALLY SIGNED 05/14/2009 12:02 [...] DIFFERENTIAL Routine 05/03/2009 10:10 AM EDT US HIPS DYNAMIC 05/02/2009 4:03 PM EDT documented [...] 5:40 AM EDT 05/09/2009 5:46 AM EDT [facility] PAC CHEMISTRY ORDERABLES Fi nal Result Performing Organization Address [facility] de Phone Number [facility] [address] [facility] [place] [address] * BASIC METABOLIC PANEL (05/09/2009 5:40 AM EDT) Sodium 135 133 - 145 mEq/L [facility] [...] 9.1 8.6 - 10.4 mg/dL [facility] 05/09/2009 5:4 0 AM EDT 05/09/2009 5:46 AM EDT [facility] PAC CHEMISTRY ORDERABLES Fi nal Result Performing Organization Address [facility] Co de Phone Number [address] [address] [facility] [place] [address] * (ABNORMAL) CBC WITH DIFF (05/09/2009 5:40 [...] AM EDT 05/09/2009 5:46 AM EDT Rowan Modi Anthony PAC HEMATOLOGY ORDERABLES F inal Result [facility] [address] [place] [address] * US LEG BILATERAL VENOUS (05/08/2009 7:42 [...] SCOTT 08-May-2009 05:28 PM end of result us Maria Del Rosario Williamson PAC [facility] US ORDERABLES Final Result * (ABNORMAL) CBC [...] HEMATOLOGY ORDERABLES Cathleen l Result [facility] [address] [place] [address] * (ABNORMAL) CBC WITH DIFF (05/04/2009 8:57 [...] HEMATOLOGY ORDERABLES Cathleen l Result [facility] [address], [address] [place] [address] * (ABNORMAL) CBC WITHOUT DIFFERENTIAL (05/03/2009 [...] HEMATOLOGY ORDERABLES Fi nal Result [facility] [address] [place] [phone] * US HIPS (05/02/2009 4:03 PM EDT) [...] end of result us Ashvin Lambert MD [facility] ORDERABLES Final Result documented in this encounter Visit Diagnoses Not on filedocumented in this encounter Care Teams Operations Specialist Relationship Specialty Start Date End Date Taras Shelton MD [address] [place] [address] PCP - General 06/28/08 Taras Shelton MD [address] [place] [address] PCP - Hospital (change to care team) 09/30/09 08/18/16 Liana Harper DO [address] [place] [phone] PCP - Neuromusculoskeletal Med and OMM (change to care team) 04/14/11 07/01/16 documented as of this encounter
--- OUTSIDE RECORDS SUMMARY | 2025-10-12 21:03 | XMS_ITS | Data Portability ---
Author Organization [place] [facility] Shayla Shepherd AONE Rhodes Address [address] [place] [address] Care Team Providers Care Blueprint Maker Name Role Phone RHEA PADRON Primary Care Provider RHEA PADRON Referring Provider [phone] Assessment Encounter Date Assessment Date Assessment LastModified [...] for repeat assessment for injection efficacy check [email or web address] Not available 05/25/2024 11:07:02 08/03/2024 08/03/2024 The injection was very helpful for her right foot hallux rigidus. We will continue to monitor her symptoms. We can certainly perform another injection as needed and can move forward with surgical intervention as desired. She will call the office on an as-needed basis at this time. Patient was seen and evaluated by Omkar Raygoza PA-C in indirect conjunction with Documenting Provider: Marichuy Jain MD He/She agrees with history, physical examination, tests/diagnostic imaging, and treatment plan [email or web address] Not available 08/03/2024 11:13:07 11/09/2024 11/09/2024 73-year-old [...] may be helpful for control of swelling. [id number]-rnk-[id number] anti-inflammator y medications with appropriate GI precautions [...] Organization Details Last Modified Time Details Appointments WALK-IN 2024 03:45P M PROVIDER HUBBARD Not available Not available Not available ESTABLISH ED/NEW PROBLEM 2024 08:30A M JESUS ADRIAN PA-C Not available Not available Not available ESTABLISH ED/AONE REFERRAL 2025 01:00P M Simeon Minaya MD Not available Not available Not available Lab None recorded. Referral None recorded. Procedures None recorded. Surgeries None recorded. Imaging XR, knee, 3 view 2023 024 [facility], [address], [place], [address], 11/09/2024 13:57:22 XR, foot, 3 or more view 2023 024 [email or web address] [facility], [address], [place], [address], 05/25/2024 12:30:51 Medication Orders meloxicam 15 mg tablet 2023 024 [id number], [address] [place], [place], [phone], 11/09/2024 13:52:33 lidocaine (PF) 10 mg/mL (1 %) injection solution [address] [id number], [address] [place], [place], [id number], 05/25/2024 12:30:51 triamcino lone acetonide 40 mg/mL suspensio n for injection [address] [id number], [address], [place], [id number], 05/25/2024 12:30:51 Patient TargetsNo targets recorded. Patient InstructionsNo instructions recorded. Reason for Referral None Reported. Problems Name Problem SNOMED Code Status Onset Date Resolution Date Notes Provider Name and Address Organization Details Recorded Time Primary gonarthro sis, bilateral 359335335 Active 2018 Primary osteoarth ritis of both knees Not Available [facility] 5 23:59:17 Pain of knee region 5611399510 Active 2018 Chronic pain of left knee Not Available [facility] 5 23:59:17 Arthritis of joint of toe 255161270 Active 2023 OMKAR RAYGOZA PA-C [address], [place], [address] , [place] [facility] 4 12:26:32 Contusion of right knee 86869375181 499506 Active [address], [place], [address] , [facility] 4 13:51:09 Osteoarth ritis of right knee joint 65408646496 9100 Active [address], [place], [address] , [facility] 4 16:56:53 Problem Notes None recorded. Procedures Surgical History Date Name Laterality Status Provider Name and Address Organization Details Recorded Time 5 AJR Knee Injection active [address], [place], [address], [facility] 10/12/2025 17:08:39 4 AJF Foot Inj completed [address], [place], [address], [facility] 05/25/2024 11:22:03 9 total knee replacement completed [facility] 05/25/2024 11:31:22 Head or Neck Surgery completed [facility] 05/25/2024 11:28:39 endoscopic carpal tunnel release [facility] 11/09/2024 13:23:40 Imaging Results None recorded. Procedure Notes None recorded. Medical Equipment None Reported. Allergies Allergen ID Allergen Name Allergen Category Reaction Reaction Severity Criticality Documentation Date Start Date Code Code System Note Provider Name and Address Organization Details Recorded Time 354177 buprenorp nereyda / naloxone medicatio n Not available Not available Not available 08/21/20252018 64053 4 RxNorm Not Available [facility] 5 01:30:09 019890 oxymorpho ne medicatio n Not available Not available Not available 08/21/20252018 7814 RxNorm Not Available [facility] 5 01:30:10 951547 desiprami ne medicatio n Not available Not available Not available 08/21/20252018 3247 RxNorm Not Available [facility] 5 01:30:10 034115 honey bee venom environme nt anaphylax is Not available [facility] 10/12/20252015 66713 7 RxNorm Not Available [facility] External Data Service - prod 5 17:27:51 524688 desiprami ne hydrochlo ride medicatio n swelling Not available [facility] 10/12/20252014 59927 4 RxNorm Swell ing and itchi ng Not Available [facility] External Data Service - prod 5 17:27:51 97552 Norpramin medicatio n Not available Not available Not available 11/09/2024 1 RxNorm Crystal Darrel manduj[place], [place] [facility] 4 13:22:44 Medications Name Sig Start [...] injection Take 40 mg by injection route. 2024 active Not Available Not Available Not Avai [...] Not Available Not Available No t Available lidocaine (PF) 100 mg/5 mL (2 %) injection syringe Take 5 mL by injection route. 2024 active Not Available Not Available Not Avai lable Multi Vitamin active Not Available Not Available Not Available multivit-mi [id number]-cryma-r it K-Q10 active Not Available Not Available Not Available Vitals Date Recorded Body height Body mass index (BMI) Body weight Provider Name and Address Organization Details Last Updated DateTime 05/25/2024 157.48 cm 27.1 kg/m2 87961.[address] [place] [facility] 05/25/2024 11:24:30 Date Recorded Body height Body mass index (BMI) Body weight Provider Name and Address Organization Details Last Updated DateTime 08/03/2024 157.48 cm 27.1 kg/m2 76055.[address] [place] [facility] 08/03/2024 10:54:56 Date Recorded Body height Body mass index (BMI) Body weight Provider Name and Address Organization Details Last Updated DateTime 10/12/2025 157.48 cm 26.9 kg/m2 30650.08 g Makeda Hicks [place] [facility] 10/12/2025 16:16:54 Date Recorded Body height Body mass index (BMI) Body weight Provider Name and Address Organization Details Last Updated DateTime 11/09/2024 157.48 cm 26.9 kg/m2 29145.08 g Nesha Rojo [place] [facility] 11/09/2024 13:22:51 Social History None recorded. Functional Status Question Answer Note LastModified by Organizat ion Details LastModified Time Do you use any illicit or recreational drugs? No [email or web address] Information not available 11/09/2024 Do you or have you ever used any other forms of tobacco or nicotine? No [email or web address] Information not available 10/12/2025 What is your level of alcohol consumption? None [email or web address] Information not available 11/09/2024 Are you currently employed? No Information not available 11/09/2024 Mental Status None recorded. Family History Relationship Description Onset Age of this Age Resolved Age Notes LastModified by Organization Details LastModified Time Father Arthritis [email or web address] Not availabl e 05/25/2024 11:25:18 Father History of cancer of unknown primary site [email or web address] Not available 11:25:39 Father Hypertensive disorder Not available 2023 11:26:13 Father Hyperlipidem ia [email or web address] Not available 2023 11:26:50 Brother Arthritis [email or web address] Not availab le 05/25/2024 11:25:18 Brother Family history of stroke [email or web address] Not available 2023 11:26:33 Brother Hyperlipidem ia Not available 2023 11:26:50 Mother Arthritis Not availabl e 05/25/2024 11:25:18 Mother History of hypertension [email or web address] Not available 11:27:25 Mother Scoliosis deformity of spine [email or web address] Not available 2023 11:27:37 Sister Arthritis [email or web address] Not availabl e 05/25/2024 11:25:18 Medical History Condition Response Anemia Y Reflux/GERD Y Gynecological HistoryNo gynecological history recorded. Obstetrics History GPAL:G 0 P 0 0 0 0 Past Encounters Encounter ID Performer Location Encounter Start Date Encounter Closed Date Diagnosis/Indication Diagnosis SNOMED-CT Code Diagnosis ICD10 Code Diagnosis IMO Codes Diagnosis Note [id number] CL[address] [place] [address] 05/25/2024 10:30:35 05/25/2024 11:08:35 Pain in right foot 0708389190 04664 M79.671 Arthritis of joint of toe 274015780 M19.079 Additional diagnosis detail: 1st MTP arthritis [id number] [address] [place] [address] 08/03/2024 10:46:30 08/03/2024 11:12:28 Arthritis of joint of toe 619751336 M19.079 Additional diagnosis detail: 1st MTP arthritis [id number] CLAIR BARBOSA [facility] [address] [place] [address],[place] [address] [place] [address] 9 11/09/2024 12:48:18 11/09/2024 13:57:22 Pain of right knee region 5615146031 41619 M25.561 70239897 History of fall 74302445 9 Z91.81 8405635 Contusion of right knee 9201682411 7064367 S80.01XA 516637 Osteoarthr itis of right knee joint 4953427667 52254 M17.11 2539799 [id number] CLAIR Hodgson [facility] [address] [facility], [address] [place] [address] 10/12/2025 15:40:54 10/12/2025 16:15:14 Pain of right knee region 6461086806 18492 M25.561 57508592 Osteoarthr itis of right knee joint 1607140793 80286 M17.11 7540191 Health Concerns Section Related Observation LastModified by Organization Detai ls LastModified Time None Recorded Concern Status LastModified by Organization Details LastModified Time None Recorded Advance Directives Directive None Recorded Payers Insurance Date Sequence Insurance Name Policy Number Policy Martins Covered Member ID Martins Member ID Guarantor Name 10/04/2025 1 [place]ICARE [place]: [employer] Patti Devine [id number] Patti Devine 10/04/2025 2 [employer] (MEDICARE SUPPLEMENT) Patti Devine [id number] Patti Devine Notes Date Note Type Note [...] She previously had a bunion procedure in 2015 which is overall done well. Today she also complains of ongoing swelling that fluctuates with her activity level. No prior treatments to date. Past medical history significant for psoriasis and anemia. 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 OMKAR RAYGOZA PA-C [address], [place], [address], [place] [facility] 05/25/2024 12:26:52 08/03/2024 text/html Patti Devine [...] She previously had a bunion procedure in 2015 which is overall done well. Today she also complains of ongoing swelling that fluctuates with her activity level. No prior treatments to date. Past medical history significant for psoriasis and anemia. 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 OMKAR RAYGOZA PA-C [address], [place], [address], [place] [facility] 08/03/2024 11:13:17 11/09/2024 text/html ROS as [...] ORLY COTTER PA-C [address], [place], [address], [place] [facility] 11/09/2024 16:59:31 OBGyn Episode No OBEpisode recorded.
== END 2025-10-12 15:14 | disposition home or self-care (01) ==
LOC: HO.HNS 14:09
PROVIDERS: PCP Internal Medicine; Visit Provider Physician Assistant
DX: M50.90 Cervical disc disorder, unspecified, unspecified cervical region (principal)
CPT/HCPCS: 99213

== ENCOUNTER → 2025-10-12 14:09 | Outpatient (BNVA) | payer MEDICARE, SELFPAY | PROVIDERS: PCP Internal Medicine; Visit Provider Physician Assistant | DX: M50.90 Cervical disc disorder, unspecified, unspecified cervical region (principal) | CPT/HCPCS: 99212 ==

== ENCOUNTER 2025-11-01 07:37 | Outpatient (AMB) | payer MEDICARE, SELFPAY ==
--- OUTSIDE RECORDS SUMMARY | 2025-10-29 13:00 | XMS_ITS | Encounter Summary ---
Author Organization [facility] Address [address] [place] [address] Care Team Providers Care Locks Tender Name Role Phone Anny Sanchez MD Primary Care Provider [phone] Reason for Referral * Therapy (Routine) - Authorized Specialty Diagnoses / Procedures Referred By Contac t Referred To Contact Pulmonology Diagnoses ILD (interstitial lung disease) ([facility] V24, [facility] V28) Procedures Pulmonary function testing: Carbon Monoxide Diffusing Capacity, Spirometry with Bronchodilator, Vital Capacity Test, Flow Volume Loop Moo Lozano MD [address] [place] [address] Phone: tel: fax: Pulmonology [address] [address] Phone: tel: fax: Referral ID Status Reason Start Date Expiration Date V isits Requested Visits Authorized [id number] Authorized 10/29/2025 10/29/2026 1 1 Reason for Visit * Reason Comments COPD F/u COPD Encounter Details Date Type Department Care Team ([facility] st Contact Info) Description 10/29/2025 1:00 PM EST Office Visit [address] [address] Moo Lozano MD [address] [place] [address] ILD (interstitial lung disease) ([facility] V24, [facility] V28) (Primary Dx); Hypoxemia Social History Tobacco Use Types Packs/Day Years Used Date Smoking Tobacco: Never Smokeless Tobacco: Never Alcohol Use Standard Drinks/Week Comments Not Currently [...] Record ed Within the last 3 months, ho w many times did you visit the emergency [...] your loved ones. For example, child care team lead or elderly care for an older adult? [...] Orientation Straight 11/20/2024 9: 04 AM EST Travel History Travel Start Travel End [facility] 10/25/2025 10/25/2025 documented as of this encounter Last Filed Vital Signs Vital Sign Reading Time Taken Comments Blood Pressure 130/72 10/29/2025 1:03 PM EST Pulse 84 10/29/2025 1:03 PM EST Temperature 36.6 C (97.8 F) 10/29/2025 1:03 PM EST Respiratory Rate 16 10/29/2025 1:03 PM EST Oxygen Saturation 98% 10/29/2025 1:03 PM EST Inhaled Oxygen Concentration - - Weight 66 kg (145 lb 6.4 oz) 10/29/2025 1:03 PM EST Height 157.5 cm (5' 2 ) 10/29/2025 1:03 PM EST Body Mass Index 26.59 10/29/2025 1:03 PM EST documented in this encounter Progress Notes * Moo Lozano MD - 10/29/2025 1:00 PM EST ADULT PULMONARY CONSULT CHIEF COMPLAINT or REASON FOR CONSULTATION: COPD ( F/u COPD) HISTORY OF PRESENT ILLNESS: Patti Devine is a 74 y.o. years old, female with a history of mild ILD on qhs oxygen. Had PFT, chest CT and overnight oximetry. She was put on oxygen qhs then, Currently no active symptoms. Denies SOB, chronic cough or wheezing. She can walk for miles and can climb 2 flight of stairs with no SOB. Had some 2nd hand smoke exposure from . The pt had overnight oximetry does show hypoxemia,the patient has no major issues in past 12 months. Last PFT in 2022 was unchanged compared to 2019 . Still on oxygen qhs- knees, back main limiting factors rather then breathing ALLERGIES: Current Allergies[1] ACTIVE MEDICATIONS: Medications Taking[2] PROVIDER ATTESTS THAT THE MEDICATION LIST WAS OBTAINED, REVIEWED AND UPDATED. REVIEW OF SYSTEMS: GENERAL: No wt lost or fever ENT: +snoring Eye: RESPIRATORY: no cough, wheezing and dyspnea CARDIOVASCULAR: No chest pain, leg swelling or palpitations GI: No abdominal discomfort, MUSCULOSKELETAL: +backpain, + knee pain HEMATOLOGY/LYMPHOLOGY No prolonged bleeding, easy bruisability ENDOCRINE: no DM NEURO: No focal weakness : Psych: no depression PAST MEDICAL HISTORY: Patient Active Problem List Diagnosis Date Noted History of basal cell carcinoma Kidney stone 05/08/2024 Vitamin D deficiency 01/08/2020 Chronic obstructive pulmonary disease ([facility] V24, [facility] V28) 08/23/2019 Nocturnal hypoxia 08/23/2019 Spinal cord stimulator status 07/05/2019 Total knee replacement status 07/05/2019 Iron deficiency anemia 04/28/2019 Chronic pain of both knees 12/02/2017 Lumbar spondylosis 10/25/2015 Post laminectomy syndrome 10/25/2015 Depression 10/14/2015 DJD (degenerative joint disease), lumbar 10/14/2015 Eczema 10/14/2015 Fibromyalgia 10/14/2015 GERD (gastroesophageal reflux disease) 10/14/2015 Hyperlipidemia 10/14/2015 Insomnia 10/14/2015 Surgical History[3] FAMILY HISTORY: Family History[4] OCCUPATION OR OCCUPATION EXPOSURE: SOCIAL HISTORY Social History Socioeconomic History Marital status: Spouse name: Not on file Number of children: Not on file Years of education: Not on file Highest education level: Not on file Occupational History Not on file Tobacco Use Smoking status: Never Smokeless tobacco: Never Substance and Sexual Activity Alcohol use: Not Currently Drug use: Never Sexual activity: Not on file Other Topics Concern Not on file Social History Narrative Not on file IMMUNIZATION: Immunization History Administered Date(s) Administered COVID-19 (Pfizer/Comirnaty) 12yo and older 08/07/2024, 03/14/2025, 08/22/2025 Influenza Quadravalent, 0.5ml (Fluad) 65yo and older 09/05/2021 Influenza Quadravalent, 0.5ml (Fluzone High-dose) 65yo and older 07/20/2023 Influenza Quadrivalent, with preservative (Fluzone; Afluria) 6mo and older 08/26/2022 Influenza trivalent, 0.5mL (Fluad) 65yo and older 09/04/2016, 09/17/2017, 08/09/2019, 09/18/2019, 09/05/2021, 07/20/2023, 07/30/2024, 08/22/2025 Influenza trivalent, 0.5mL (Fluzone High-dose) 65yo and older 09/04/2016, 09/17/2017, 08/09/2019, 07/20/2024 Influenza trivalent, 0.5mL, preservative free (Fluarix; FluLaval; Fluzone) ages 6mo and older (Afluria) 3 years and older 11/05/2015, 08/15/2020, 08/26/2022 Influenza trivalent, with preservative (Fluzone; Afluria) 6mo and older 11/05/2015 iLike (ages 12 & older) Bivalent, COVID-19 07/20/2023, 08/07/2024 iLike Covid-19 Bivalent, Original + Ba.1 (Non-US Trademark [employer] Bivalent) 07/20/2023 iLike SARS-CoV-2 COVID-19, mRNA, LNP-S, preservative free 01/27/2021, 02/17/2021, 09/05/2021, 03/09/2022 Pneumococcal conjugate 13 valent (Prevnar 13, PCV13) 2mo and older 01/02/2016 Pneumococcal conjugate 20 valent (Prevnar 20, PCV 20) 2mo and older 08/07/2024 Pneumococcal polysaccharide 23 valent (Pneumovax 23) 2yo and older 05/03/2017 RSV, bivalent, protein subunit RSVpreF, 0.5mL, Preservative Free (ABRYSVO) 50yo and older or 32 through 36 wks of 07/20/2024 Respiratory syncytial virus (RSV), unspecified 07/30/2024 Td Tetanus diptheria (Tdvax) 7yo and older 05/03/2017 Tdap Tetanus diptheria acellular pertussis (Boostrix; Adacel) 7yo and older 08/07/2024 Zoster Live 11/03/2012 Zoster recombinant (Shingrix) 19yo and older 12/12/2021 PHYSICAL EXAM: Visit Vitals BP 130/72 (BP Location: Left arm, Patient Position: Sitting, BP Cuff Size: Adult) Pulse 84 Temp 36.6 ??C (97.8 ??F) (Temporal) Resp 16 Ht 1.575 m (62 ) Wt 66 kg (145 lb 6.4 oz) SpO2 98% BMI 26.59 kg/m?? OB Status Postmenopausal Smoking Status Never BSA 1.67 m?? APPEARANCE: Alert and in no acute distress. EYES: Conjunctiva and sclera normal. NOSE/SINUS: Nares normal. Septum midline. Mucosa No drainage or sinus tenderness. MOUTH/THROAT: no erythema or exudates. Mallampati class 2 NECK: Neck supple, thyroid symmetric and of normal size. HEART: RRR with normal S1 and S2, no murmurs, no gallops, no JVD appreciated. LUNG: CTA b/l, no wheezing or bronchial bs ABDOMEN: Bowel sounds normoactive, soft, non-tender EXTREMITIES: no clubbing, cyanosis, or edema. LYMPH NODES: No cervical and supra-clavicular lymphadenopathy. NEURO: Awake, alert and oriented x 3, no focalization Derm: no rash DIAGNOSTIC DATA: CARDIOPULMONARY TEST: Last Pulmonary function Test showed: 08/2023 dona.l fev1 and dlco DlCO= 83% RADIOLOGIST IMAGING: CXR 2023 FINDINGS: PA and lateral views of the chest were performed. Lungs are clear. No pleural effusions or evidence of pulmonary edema. No pneumothorax. Heart is not enlarged. Mediastinal contours are stable. Postsurgical changes of anterior spinal fusion from C4 through C7 with anterior plate and screw fixation. Posterior spinal fusion changes in the lower thoracic/upper lumbar spine. Spinal stimulator leads again noted at the mid thoracic spine. Multilevel degenerative changes in the spine. IMPRESSION: No cardiopulmonary abnormality. ASSESSMENT: ICD-10-CM ICD-9-CM 1. ILD (interstitial lung disease) (CMS/HCC V24, CMS/[facility] V28) J84.9 515 Pulmonary function testing:Carbon Monoxide Diffusing Capacity, Spirometry with Bronchodilator, Vital Capacity Test, Flow Volume Loop 2. Hypoxemia R09.02 799.02 Pulse oximetry, overnight PLAN: The patient's exam is normal, no crackles or clubbing. O2 sat 98% room air. I will continue the oxygen nightly, I will do an overnight oximetry to see if she still needs it, the patient requests this. I will repeat a PFT to follow-up on the DLCO, the patient brought me her CD from her CT scan in 2021. I will compared to the one from April of this year. She will follow-up in 6 months - Follow up with Anny Sanchez MD for the other co-morbilities. - I spend 32 Minutes on this visit. The patient was educated about his problems, where assessment and plan was reviewed and explained, All questions were answered. This includes: Preparing to see the patient, obtaining and/or reviewing separately obtained history, performing a medically appropriate exam, ordering medications, tests, or procedures, documenting clinical information in the electronic health record, and independently interpreting results. RETURN TO THE NEXT VISIT: Based on physical exam, symptomatology, tests requested and baseline pulmonary evaluation/disease, I instructed the patient to come back to see me in 6 mths for reevaluation after the test has been done or earlier if the patient needed. Thanks Anny Sanchez MD for allowing me to have the opportunity to assist in the care of this patient. [1] Allergies Allergen Reactions Bee Venom Protein (Honey Bee) Anaphylaxis Desipramine Hcl Swelling Swelling and itching Buprenorphine-Naloxone Nausea And Vomiting Weakness and nausea Oxymorphone Nausea And Vomiting [2] Outpatient Medications Marked as Taking for the 10/29/25 encounter (Office Visit) with Moo Lozano MD Medication Sig Dispense Refill albuterol HFA (PROAIR HFA ; PROVENTIL HFA ; VENTOLIN HFA) 90 mcg/actuation inhaler Inhale 2 puffs by mouth every 4 (four) hours if needed for wheezing. 6.7 g 0 aspirin 81 mg EC tablet Take 81 mg by mouth daily. atorvastatin (LIPITOR) 40 mg tablet TAKE 1 TABLET BY MOUTH DAILY 90 tablet 3 buPROPion XL (WELLBUTRIN XL) 300 mg 24 hr tablet coenzyme Q-10 (Co Q-10) 100 mg capsule Take 1 capsule (100 mg total) by mouth 1 (one) time each day. DULoxetine (CYMBALTA) [address] capsule Liset Thomas EPINEPHrine (EpiPen 2-Arjun) 0.3 mg/0.3 mL injection Inject 0.3 mg into the muscle as needed for Other (anaphylactic reaction). Fill with whichever brand is covered by insurance. esomeprazole (NexIUM) [address] capsule Take 1 capsule (20 mg total) by mouth 1 (one) time each day before breakfast. Do not open capsule. ferrous sulfate 325 mg (65 mg elemental iron) tablet Take 1 Tablet by mouth twice a week. gabapentin (NEURONTIN) 600 mg tablet TAKE 2 TABLETS BY MOUTH DAILY 180 tablet 1 ketoconazole (NIZORAL) 2 % shampoo loratadine (CLARITIN) 10 mg tablet Take 1 Tablet by mouth daily. magnesium oxide 500 mg capsule Take 1 Each by mouth daily. meloxicam (MOBIC) 15 mg tablet Take 1 tablet (15 mg total) by mouth 1 (one) time each day. multivitamin with minerals (MULTIPLE VITAMIN-MINERALS ORAL) Take 1 Each by mouth daily. QUEtiapine (SEROquel) 25 mg tablet LISET THOMAS traMADoL (ULTRAM) 50 mg tablet Take 1 tablet (50 mg total) by mouth. triamcinolone (KENALOG) 0.5 % cream Apply to upper arm every 8 hours [3] Past Surgical History: Procedure Laterality Date BUNIONECTOMY Right CARPAL TUNNEL RELEASE Bilateral COLONOSCOPY 02/18/2016 COLONOSCOPY 01/17/2020 negative KNEE ARTHROSCOPY Bilateral 2009 meniscus surgery OTHER SURGICAL HISTORY 2008 NC ARTHRD ANT INTERBODY MIN DSC CRV BELOW C2 OTHER SURGICAL HISTORY LUMBAR SPINE FUSION, LAT TRANSVERSE; COMMENT: L5-S1 2008 and 2010 TOTAL KNEE ARTHROPLASTY Left 05/2019 UPPER GASTROINTESTINAL ENDOSCOPY 01/17/2020 negative, biopsy pending [4] Family History Problem Relation Name Age of Onset COPD Mother graves disease Heart disease Father CAD, prostate cancer, HTN, glaucoma Asthma Sister Stroke Brother Diabetes Paternal Grandfather Breast cancer Neg Hx documented in this encounter Plan of Treatment Upcoming Encounters Date Type Department Care Team (Late st Contact Info) Description 01/29/2026 8:45 AM EST Office Visit Adult Medicine [address] [address] Anny Sanchez MD [address] [place], [place] 10/31/2026 11:45 AM EST Office Visit Pulmonology - [place] [address] [facility] [address] [place] [address] Moo Lozano MD [address] [place] [address] Scheduled Orders Name Type Priority Associated Diagnoses Orde r Schedule Pulse oximetry, overnight Respiratory Care Routine Hypoxemia 1 Occurrences starting 10/29/2025 until 10/29/2026 documented as of this encounter Results * Pulmonary function testing: Carbon Monoxide Diffusing Capacity, Spirometry with Bronchodilator, Vital Capacity Test, Flow Volume Loop (10/29/2025 1:39 PM EST) Impressions Moo Lozano MD - 10/29/2025 1:39 PM EST 10/29/2025 Spirometry FEV1 104% predicted, FVC 104% predicted, FEV1/FVC ratio is normal, no improvement in FEV1 post bronchodilators Lung volume TLC is 98% predicted, RV/TLC is 91% predicted Diffusion DLCO 75% predicted, DLCO/VA 78% predicted In summary, this is a normal PFT. The DLCO/VA is at the lower end of normal us Moo Lozano MD PFT ORDERABLES Final Result documented in this encounter Visit Diagnoses Diagnosis ILD (interstitial lung disease) ([facility] V24, [facility] V28)- Primary Postinflammatory pulmonary fibrosis Hypoxemia ILD (interstitial lung disease) ([facility] V24, [facility] V28) Postinflammatory pulmonary fibrosis documented in this encounter Additional Health Concerns Assessment Noted Time PHQ-9 Depression Total Score: 0 01/31/20 25 8:42 AM EST documented as of this encounter Care Teams Locks Tender Relationship Specialty Start Date End Date Anny Sanchez MD [address] [place], [place] PCP - General Internal Medicine 10/11/15 documented as of this encounter
--- OUTSIDE RECORDS SUMMARY | 2025-10-29 13:45 | XMS_ITS | Encounter Summary ---
Author Organization [facility] Address [address] [place] [address] Care Team Providers Care Cyber Engineer Name Role Phone Anny Sanchez MD Primary Care Provider Reason for Visit * Therapy (Routine) - Authorized Specialty Diagnoses / Procedures Referred By Contac t Referred To Contact Pulmonology Diagnoses ILD (interstitial lung disease) ([facility] V24, [facility] V28) Procedures Pulmonary function testing: Carbon Monoxide Diffusing Capacity, Spirometry with Bronchodilator, Vital Capacity Test, Flow Volume Loop Moo Lozano MD [address] [place] [address] Phone: tel: fax: Pulmonology [address] [address] Phone: tel: fax: Referral ID Status Reason Start Date Expiration Date V isits Requested Visits Authorized [id number] Authorized 10/29/2025 10/29/2026 1 1 Encounter Details Date Type Department Care Team (Latest Contact Info) Description 10/29/2025 1:45 PM EST [facility] [address] [address] ILD (interstitial lung disease) ([facility] V24, [facility] V28) Social History Tobacco Use Types Packs/Day Years [...] your loved ones. For example, child care teacher or elderly care for an older adult? [...] EST Travel History Travel Start Travel End [facility] 10/25/2025 10/25/2025 documented as of this encounter Progress Notes * Claus Quinteros - 10/29/2025 1:45 PM EST PFT performed documented in this encounter Plan of Treatment Upcoming Encounters Date Type Department Care Team (Late st Contact Info) Description 01/29/2026 8:45 AM EST Office Visit Adult Medicine [facility] [address] [place] [address] Anny Sanchez MD [address] [place], [place] 10/31/2026 11:45 AM EST Office Visit Pulmonology - [address] [place] [address] Moo Lozano MD [address] [place] [phone] documented as of this encounter Procedures Procedure Name Priority Date/Time Associated Diagnosis Comments PULMONARY FUNCTION TESTING Routine 10/29/2025 1:39 PM EST ILD (interstitial lung disease) ([facility] V24, [facility] V28) documented in this encounter Results * Pulmonary function testing: [...] Visit Diagnoses Diagnosis ILD (interstitial lung disease) ([facility] V24, [facility] V28) Postinflammatory pulmonary fibrosis documented in this encounter Additional Health Concerns Assessment Noted Time PHQ-9 Depression Total Score: 0 01/31/20 25 8:42 AM EST documented as of this encounter Care Teams Cyber Engineer Relationship Specialty Start Date End Date Anny Sanchez MD [address] [place] [address] PCP - General Internal Medicine 10/11/15 documented as of this encounter
--- OUTSIDE RECORDS SUMMARY | 2025-11-01 07:40 | XMS_ITS | Encounter Summary ---
Author Organization [facility] Address [address] [place] [address] Care Team Providers Care Lymphedema Therapist Name Role Phone Taras Shelton MD Primary Care Provider [phone] Taras Shelton MD Unavailable [phone] Meredith Liana DO Unavailable [phone] Encounter Details Date Type Department Care Team (Late st Contact Info) Description 09/30/2009 Hospital Visit [facility] OUTPATIENT Ashvin Lambert MD [address] [place] [address] [address] [place] [address] Social History Tobacco Use Types Packs/Day Years [...] on filedocumented in this encounter Care Teams Lymphedema Therapist Relationship Specialty Start Date End Date Taras Shelton MD [address] [place] [address] PCP - General 06/28/08 Taras Shelton MD [address] [place] [address] PCP - Hospital (change to care team) 09/30/09 08/18/16 Liana Harper DO [address] [place] [phone] PCP - Neuromusculoskeletal Med and [facility] (change to care team) 04/14/11 07/01/16 documented as of this encounter
--- OUTSIDE RECORDS SUMMARY | 2025-11-01 07:40 | XMS_ITS | Clinical Summary ---
Author Organization [facility] Prior to 04/28/25 Address [address] [place] [address] Care Team Providers Care Cd Mixer Helper Name Role Phone Anny Sanchez MD Primary Care Provider [phone] Allergies Active Allergy Reactions Criticality Noted Date [...] age to complete this topic Care Teams Cd Mixer Helper Relationship Specialty Start Date End Date Anny Sanchez MD PCP - General Internal Medicine 03/28/19
--- OUTSIDE RECORDS SUMMARY | 2025-11-01 07:40 | XMS_ITS | Encounter Summary ---
Author Organization [facility] Address [address] [place] [address] Care Team Providers Care Delivery Assistant Name Role Phone Taras Shelton MD Primary Care Provider [phone] Taras Shelton MD Unavailable [phone] Liana Harper DO Unavailable [phone] Encounter Details Date Type Department Care Team (Late st Contact Info) Description 06/28/2008 Hospital Visit [facility] OUTPATIENT Ashvin Lambert MD [address] [place] [address] [address] [place] [address] Social History Tobacco Use Types Packs/Day Years [...] on filedocumented in this encounter Care Teams Delivery Assistant Relationship Specialty Start Date End Date Taras Shelton MD [address] [place] [address] PCP - General 06/28/08 Taras Shelton MD [address] [place] [address] PCP - Hospital (change to care team) 09/30/09 08/18/16 Liana Harper DO [address] [place] [address] PCP - Neuromusculoskeletal Med and [facility] (change to care team) 04/14/11 07/01/16 documented as of this encounter
--- OUTSIDE RECORDS SUMMARY | 2025-11-01 07:40 | XMS_ITS | Encounter Summary ---
Author Organization [facility] Address [address] [place] [address] Care Team Providers Care Debridging Machine Operator Name Role Phone Taras Shelton MD Primary Care Provider [phone] Taras Shelton MD Unavailable [phone] Meredith Liana DO Unavailable [phone] Encounter Details Date Type Department Care Team (Latest Contact Info) Description 05/02/2009 Hospital Visit [facility] INPATIENT Ashvin Lambert MD [address] [place] [address] Dr [address] [place] [address] Social History Tobacco Use Types Packs/Day Years Used Date Smoking Tobacco: Never Assessed Comments Unknown Sex and Gender Information Value Date Recorded Sex Assigned at Not on file Legal Sex Female 6:51 AM EST Gender Identity Not on file Sexual Orientation Not on file documented as of this encounter Discharge Summaries * Sarthak Smith PA - 05/14/2009 12:05 PM EDT PATTI GIANG [id number] LOC: DISCH ADM: 05/02/2009 DISCH: 05/09/2009 PRINCIPAL [...] was begun. 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 DICTATED BY: Sarthak Lambert MD Attending [facility] [employer] [phone] /[facility] [id number] cc: Ashvin Shelton MD PRELIMINARY REPORT UNTIL SIGNED BY ATTENDING PHYSICIAN Working Document - Sign in [facility] ASHVIN LAMBERT MD ELECTRONICALLY SIGNED 05/14/2009 12:03 documented in this encounter OR Notes * Op Note - Ashvin Lambert MD - 05/14/2009 12:05 PM EDT PATTI GIANG [id number] OR DATE: 05/02/2009 LOC: R6 PREOPERATIVE DIAGNOSIS: [...] L3-L4, L5-S1 pedicle screw sisi instrumentation with Calm system, epidural catheter placement. SURGEON: Ashvin Lambert MD. CENTRAL OFFICE ASSOCIATE: Chris Goodwin PA-C. ANESTHESIA: General. PROCEDURE: The [...] well. DICTATED BY: Ashvin Lambert MD Attending [facility] [employer] [phone] /[id number] cc: Ashvin Shelton MD PRELIMINARY REPORT UNTIL SIGNED BY ATTENDING PHYSICIAN Working Document - Sign in [facility] ASHVIN LAMBERT MD ELECTRONICALLY SIGNED 05/14/2009 [...] 5:40 AM EDT 05/09/2009 5:46 AM EDT [facility] PAC CHEMISTRY ORDERABLES Fi nal Result Performing Organization Address [facility] de Phone Number NORD [address] [facility] [place] [address] * BASIC METABOLIC PANEL (05/09/2009 5:40 AM [...] 0 AM EDT 05/09/2009 5:46 AM EDT [facility] PAC CHEMISTRY ORDERABLES Fi nal Result Performing Organization Address [facility] Co de Phone Number NORD [address] [facility], [address] [place] [address] * (ABNORMAL) CBC WITH DIFF (05/09/2009 5:40 [...] HEMATOLOGY ORDERABLES F inal Result NORDX [address], [address] [place] [address] * US LEG BILATERAL VENOUS (05/08/2009 7:42 [...] result us Maria Del Rosario Williamson PAC [facility] US ORDERABLES Final Result * (ABNORMAL) CBC [...] HEMATOLOGY ORDERABLES Cathleen l Result [facility] [address], [address] [place] [address] * (ABNORMAL) CBC WITH DIFF (05/04/2009 8:57 [...] HEMATOLOGY ORDERABLES Cathleen l Result [facility] [address], [address] [place] [address] * (ABNORMAL) CBC WITHOUT DIFFERENTIAL [...] HEMATOLOGY ORDERABLES Fi nal Result [facility] [address], [address] [place] [id number] * US INFANT HIPS (05/02/2009 4:03 PM EDT) Anatomical Region [...] of result us Ashvin Lambert MD [facility] ORDERABLES Final Result documented in this encounter Visit Diagnoses Not on filedocumented in this encounter Care Teams Debridging Machine Operator Relationship Specialty Start Date End Date Taras Shelton MD [address] [place] [address] PCP - General 06/28/08 Taras Shelton MD [address] [place] [address] PCP - Hospital (change to care team) 09/30/09 08/18/16 Liana Harper DO [address] [place] [phone] PCP - Neuromusculoskeletal Med and OMM (change to care team) 04/14/11 07/01/16 documented as of this encounter
--- OUTSIDE RECORDS SUMMARY | 2025-11-01 07:40 | XMS_ITS | Encounter Summary ---
Author Organization [facility] Address [address] [place] [address] Care Team Providers Care Cage/Vault Supervisor Name Role Phone Taras Shelton MD Primary Care Provider [phone] Taras Shelton MD Unavailable [phone] Meredith Liana DO Unavailable [phone] Encounter Details Date Type Department Care Team (Late st Contact Info) Description 12/18/2008 Hospital Visit [facility] OUTPATIENT Ashvin Lambert MD [address] [place] [address] Dr [address] [place] [address] Social History Tobacco Use Types Packs/Day Years [...] again demonstrated to be status post anterior [place] plate and screw fixation transfixing C4, C5, [...] on filedocumented in this encounter Care Teams Cage/Vault Supervisor Relationship Specialty Start Date End Date Taras Shelton MD [address] [place] [address] PCP - General 06/28/08 Taras Shelton MD [address] [place] [address] PCP - Hospital (change to care team) 09/30/09 08/18/16 Liana Harper DO [address] [place] [phone] PCP - Neuromusculoskeletal Med and OMM (change to care team) 04/14/11 07/01/16 documented as of this encounter
--- OUTSIDE RECORDS SUMMARY | 2025-11-01 07:40 | XMS_ITS | Encounter Summary ---
Author Organization [facility] Address [address] [place] [address] Care Team Providers Care Big Data Lead Name Role Phone Taras Shelton MD Primary Care Provider Taras Shelton MD Unavailable [phone] Meredith Liana DO Unavailable [phone] Encounter Details Date Type Department Care Team (Late st Contact Info) Description 06/12/2009 Hospital Visit [facility] OUTPATIENT Ashvin Lambert MD [address] [place] [address] Dr [address] [place] [address] Social History Tobacco Use Types Packs/Day Years [...] on filedocumented in this encounter Care Teams Big Data Lead Relationship Specialty Start Date End Date Taras Shelton MD [address] [place] [address] PCP - General 06/28/08 Taras Shelton MD [address] [place] [address] PCP - Hospital (change to care team) 09/30/09 08/18/16 Liana Harper DO [address] [place] [phone] PCP - Neuromusculoskeletal Med and OMM (change to care team) 04/14/11 07/01/16 documented as of this encounter
--- OUTSIDE RECORDS SUMMARY | 2025-11-01 07:40 | XMS_ITS | Continuity of Care Document ---
Author Organization [facility] Shayla Shepherd [facility] Address [address] [facility] [address] [place] [address] Care Team Providers Care Geodesist Name Role Phone RHEA PADRON Primary Care Provider [phone] RHEA PADRON Referring Provider Assessment Encounter Date Assessment Date Assessment LastModified by Organization Details LastModified Time 10/12/2025 10/12/2025 Chief Complaint : New Right Knee Pain HPI : Patti is a very nice 74 year old female who presents here today with complaints of RIGHT knee pain for 1 month(s). Patient has a history of left total knee replacement done by Dr. Mobley in 2019. T he patient is experiencing right knee pain, which is moderate in intensity, and has recently worsened. The right knee is the worse knee. The pain limits some activities of daily living. Walking tolerance is moderately reduced. Pain and restriction of function are tolerable at this time. Review of systems is negative for other rapidly progressive neurological disorder, chest pain, shortness of breath, fevers, chills, or any signs of active or persistent local or systemic infection. Physical Exam : Patient is well nourished, well-developed, in no acute distress, with appropriate mood and affect. The patient is oriented to time, place, and person. Right knee motion is reduced and does cause significant pain. The right knee moves from 0 to 100 degrees and the left knee moves from 0 to 110 degrees. The knees are stable within those [id number]. Tender to palpation about the lateral joint line.Knee muscle strength is normal bilaterally with the skin intact. Pedal pulses are palpable. Hip examination, including flexion and internal rotation, was negative in that groin pain was not produced. Imaging : AP knee, Broussard knee, lateral knee, and patellar views of the RIGHT knee was ordered and taken 10/12/25 and demonstrates degenerative joint disease of the knee with definite joint space narrowing, osteophyte formation, and subchondral sclerosis.Signifi cant arthritic changes about the lateral and patellofemoral compartments Procedure : See Procedure Section Below Assessment/Plan : 74-year-old female with right knee osteoarthritis, severe The patient has Right knee arthritis. An extensive discussion was conducted on the natural history of the disease and the variety of surgical and non-surgical options available to the patient including, but not limited to non-steroidal anti-inflammatory medications, steroid injections, viscosupplementat ion, physical therapy, maintenance of ideal body weight, and reduction of activity. Patient wished to proceed with cortisone injection today. Unfortunately she had a significant painful reaction to the injection, and had some difficulty fully receiving it. See procedure documentation. She was instructed to follow-up in our joints department in 3 months for recheck, sooner if any issues arise. All questions answered. Patient is aware she will likely need a total knee replacement in the near future, does not wish to do this until next year [email or web address] Not available 10/12/2025 17:08:15 Plan of Treatment Reminders Order Date Submit Date Provider Last Modified By Organization Details Last Modified Time Details Appointments ESTABLISH ED/NEW PROBLEM 2024 08:30A M JESUS ADRIAN PA-C Not available Not available Not available ESTABLISH ED/AONE REFERRAL 2025 01:00P M Simeon Minaya MD Not available Not available Not available Lab None recorded. Referral None recorded. Procedures None recorded. Surgeries None recorded. Imaging XR, knee, 4 or more view 2024 025 [email or web address], [address], [place], [address], 10/12/2025 17:09:10 Medication Orders lidocaine (PF) 100 mg/5 mL (2 %) injection syringe 2024 025 [email or web address] [id number], [address], [place], [phone], 10/12/2025 17:09:10 triamcino lone acetonide 40 mg/mL suspensio n for injection 2024 025 [email or web address] [facility] #[id number], [address] [place], [place], [id number], 10/12/2025 17:09:10 Patient TargetsNo targets recorded. Patient Instructions Encounter Date Encounter Id Patient Instructions Last Modified By Organization Details Last Modified Time 10/12/2025 [id number] Patient Instructions Following Cortisone Injections A cortisone injection has been reccomended for you in the office today. The area was injected in order to reduce the pain and inflammation that you are experiencing. Please note that not everyone will have a lasting response following the injection. Here is some information that he would like for you to have: Content of the Injection: The injection consists of two medications. Cortisone (an anti-inflammatory that will take 48-72 hours to take effect) and Lidocaine (a numbing agent that will last 2-3 hours). Once the Lidocaine wears off, you may have an increase in your pain. Recommend icing the affected area for 20 minutes 3-4 times per day. Post-injection Instructions: It is recommended that you refrain from any high level activities using the joint or limb that was injected for approximately 24-48 hours. Normal day to day activities are generally not a problem. Possible Side Effects Skin discoloration: Individuals with dark complexions may experience some skin discoloration locally at the site of the injection. Steroid Flare-Up: There is the possibility of an increase in discomfort within 48 hours following the injection. This is called a ``flare . To help minimize the chances of this, please see the post-injection instructions above. Infection: There is a less than 1% chance of an infection. If you notice any signs of infection (redness, warmth, drainage, fever greater than 100 degrees) you should call the office immediately at [phone]. [email or web address] Not available 10/12/2025 17:08:19 Reason for Referral None Reported. Problems Name Problem SNOMED Code Status Onset Date Resolution Date Notes Provider Name and Address Organization Details Recorded Time Primary gonarthro sis, bilateral 999576758 Active 2018 Primary osteoarth ritis of both knees Not Available [facility] 5 23:59:17 Pain of knee region 3736869779 Active 2018 Chronic pain of left knee Not Available [facility] 5 23:59:17 Arthritis of joint of toe 115913904 Active [address], [place], [address] , [place] [facility] 4 12:26:32 Contusion of right knee 60806372834 402943 Active [address], [place], [address] , [place] [facility] 4 13:51:09 Osteoarth ritis of right knee joint 20196810771 9100 Active [address], [place], [address] , [place] [facility] 4 16:56:53 Problem Notes None recorded. Procedures Surgical History Date Name Laterality Status Provider Name and Address Organization Details Recorded Time 5 AJR Knee Injection completed [address], [place], [address], [place] [facility] 10/12/2025 17:08:39 4 AJF Foot Inj completed [address], [place], [address], [place] [facility] 05/25/2024 11:22:03 9 total knee replacement completed [facility] 05/25/2024 11:31:22 Head or Neck Surgery completed [facility] P 05/25/2024 11:28:39 endoscopic carpal tunnel release completed Nesha Rojo [facility] 11/09/2024 13:23:40 Imaging Results None recorded. Procedure Notes None recorded. Medical Equipment None Reported. Allergies Allergen ID Allergen Name Allergen Category Reaction Reaction Severity Criticality Documentation Date Start Date Code Code System Note Provider Name and Address Organization Details Recorded Time 334838 buprenorp nereyda / naloxone medicatio n Not available Not available Not available 08/21/20252018 68673 4 RxNorm Not Available [facility] 5 01:30:09 646954 oxymorpho ne medicatio n Not available Not available Not available 08/21/20252018 7814 RxNorm Not Available [facility] 5 01:30:10 452806 desiprami ne medicatio n Not available Not available Not available 08/21/20252018 3247 RxNorm Not Available [facility] 5 01:30:10 039573 honey bee venom environme nt anaphylax is Not available [facility] 10/12/20252015 23023 7 RxNorm Not Available [employer] [facility] 5 17:27:51 082338 desiprami ne hydrochlo ride medicatio n swelling Not available [facility] 10/12/20252014 26984 4 RxNorm Swell ing and itchi ng Not Available [employer] [facility] 5 17:27:51 73131 Norpramin medicatio n Not available Not available Not available 11/09/2024 99422 1 RxNorm Crystal Darrel mandujano [place] [facility] 4 13:22:44 Medications Name Sig Start [...] Not Available Not Available No t Available ibuprofen 800 mg tablet TAKE 1 TABLET BY MOUTH THREE TIMES DAILY NEEDED FOR PAIN active Not Available Not Available No t [...] completed Not Available Not Available Not Available tramadol 50 mg tablet TAKE 1 TABLET BY MOUTH EVERY 4 HOURS NEEDED FOR 7 DAYS active Not Available Not Available No t Available amoxicillin 500 mg tablet TAKE 4 TABLETS BY MOUTH DAILY NEEDED PRE DENTAL PROCEDURE S active Not Available Not Available No t Available oxycodone-a cetaminophe n 5 mg-325 mg tablet TAKE 1 TABLET BY MOUTH EVERY 4-6 HOURS NEEDED active Not Available Not Available [...] Not Available Not Available Not Avai lable amoxicillin 875 mg-potassiu m clavulanate 125 mg tablet TAKE 1 TABLET BY MOUTH TWICE DAILY UNTIL ALL TAKEN 10/29 completed Not Available Not Available Not Available oxycodone 5 mg tablet Take 5 mg [...] active Not Available Not Available Not Available buprenorphi ne 15 mcg/hour weekly transdermal patch APPLY 1 PATCH TOPICALLY TO THE SKIN EVERY WEEK active Not Available Not Available No t Available buprenorphi ne 7.5 mcg/hour weekly transdermal patch APPLY 1 PATCH TOPICALLY TO THE SKIN EVERY WEEK active Not Available Not Available No t Available multivit-mi i56-nibua-f it K-Q10 active Not Available Not Available Not Available Vitals Date Recorded Body height Body mass index (BMI) Body weight Provider Name and Address Organization Details Last Updated DateTime 10/12/2025 157.48 cm 26.9 kg/m2 00364.[address] [facility] 10/12/2025 16:16:54 Social History None recorded. Functional Status Question Answer Note LastModified by Organizat ion Details LastModified Time Do you use any illicit or recreational drugs? No [email or web address] Information not available 11/09/2024 Do you or have you ever used any other forms of tobacco or nicotine? No [email or web address] Information not available 10/12/2025 What is your level of alcohol consumption? None [email or web address] Information not available 11/09/2024 Are you currently employed? No [email or web address] Information not available 11/09/2024 Mental Status None recorded. Family History Relationship Description Onset Age of this Age Resolved Age Notes LastModified by Organization Details LastModified Time Father Arthritis [email or web address] Not availabl e 05/25/2024 11:25:18 Father History of cancer of unknown primary site [email or web address] Not available 11:25:39 Father Hypertensive disorder [email or web address] Not available 2023 11:26:13 Father Hyperlipidem ia [email or web address] Not available 2023 11:26:50 Brother Arthritis Not availab le 05/25/2024 11:25:18 Brother Family history of stroke [email or web address] Not available 2023 11:26:33 Brother Hyperlipidem ia [email or web address] Not available 2023 11:26:50 Mother Arthritis [email or web address] Not availabl e 05/25/2024 11:25:18 Mother History of hypertension [email or web address] Not available 11:27:25 Mother Scoliosis deformity of spine Not available 2023 11:27:37 Sister Arthritis [email or web address] Not availabl e 05/25/2024 11:25:18 Medical History Condition Response Anemia Y Reflux/GERD Y Gynecological HistoryNo gynecological history recorded. Obstetrics History GPAL:G 0 P 0 0 0 0 Past Encounters Encounter ID Performer Location Encounter Start Date Encounter Closed Date Diagnosis/Indication Diagnosis SNOMED-CT Code Diagnosis ICD10 Code Diagnosis IMO Codes Diagnosis Note [id number] Jennifer Samano PA-C [facility] [address] [place] [address] 10/12/2025 15:40:54 10/12/2025 16:15:14 Pain of right knee region 4221542897 55702 M25.561 49478126 Osteoarthr itis of right knee joint 6434948330 87324 M17.11 [id number] Health Concerns Section Related Observation LastModified by Organization Detai ls LastModified Time None Recorded Concern Status LastModified by Organization Details LastModified Time None Recorded Payers Encounter Date Sequence Insurance Name Policy Number Policy Martins Covered Member ID Martins Member ID Guarantor Name 10/12/2025 2 SOLOMON Devine [id number] Patti De La Torrejacobo 10/12/2025 1 MEDICARE B-[place]: NGS Patti Mcguire Sybil [id number] Patti Devine OBGyn Episode No OBEpisode recorded.
--- OUTSIDE RECORDS SUMMARY | 2025-11-01 07:40 | XMS_ITS | Data Portability ---
Author Organization [facility], [address] Address [address] [place] [address] Assessment No assessment recorded. Plan of Treatment Reminders Order Date Submit Date Provider Last Modified By Organization Details Last Modified Time Details Appointments None record ed. Lab None record ed. Referral None record ed. Procedures None record ed. Surgeries None record ed. Imaging XR, toe(s) , 2 or more view 023 04/05/20 23 [facility], [address] [place], [address], 13:51:25 Medication Orders None record ed. Patient TargetsNo targets recorded. Patient InstructionsNo instructions recorded. Reason for Referral None Reported. Results Created Date Observation Date Name Description Value Unit Range Abnormal Flag Note LastModifiedBy Organization Detail LastModifiedTime 04/05/20 23 04/05/2023 XR, toe(s ), 2 or more view No observ ation record ed. [email or web address] [facility] [address] [place], [address], 04/05/2023 14:30:44 04/06/20 23 XR, toe(s ), 2 or more view No observ ation record ed. [email or web address] [facility] [address] [place], [address], 04/06/2023 09:08:26 Result Notes None recorded. Problems Name Problem SNOMED Code Status Onset Date Resolution Date Notes Provider Name and Address Organization Details Recorded Time Depressive disorder 19088124 Active 2022 BER[facility]A [facility] 3 12:04:52 Arthritis 2911424 Active 2022 GOLDEN mandujano, [place] - [facility] 3 12:05:06 Hyperlipidemia 75700530 Active 2022 GOLDEN mandujano, [place] - [facility] 3 12:05:16 Problem Notes None recorded. Procedures Surgical History Date Name Laterality Status Provider Name and Address Organization Details Recorded Time total knee replacement completed GOLDEN CARDENAS [place] - [facility] 04/05/2023 12:06:47 Carpal tunnel surgery completed [facility] - [facility] 04/05/2023 12:06:53 Imaging Results None recorded. Procedure Notes None recorded. Medical Equipment None Reported. Allergies Allergen ID Allergen Name Allergen Category Reaction Reaction Severity Criticality Documentation Date Start Date Code Code System Note Provider Name and Address Organization Details Recorded Time 064544 Norpramin medicatio n Not available Not available Not available 04/05/202326217 1 RxNorm [facility]EN [facility]ujano, [place] [facility] [...] temperature Respiratory rate Heart rate Oxygen saturation Systolic And Diastolic Provider Name and Address Organization Details Last Updated DateTime 3 157.48 cm 27.4 kg/m2 91590.8 6 g 98.2 [degF] 18 /min 68 /min 97 % 135/84 mm[Hg] GOLDEN Jamison [facility] 12:08:23 Social History Question Answer Notes LastModified by [employer] ion Details LastModified Time Tobacco Smoking Status Never Smoker BERTHA Iqbal [facility] 04/05/2023 12:06:11 What Is Your [...] ICD10 Code Diagnosis IMO Codes Diagnosis Note [id number] [facility] [address] [place] [address] 12/23/2017 09:27:16 12/23/2017 10:10:41 [id number] [address] [place] [address] 08/04/2022 10:14:13 08/04/2022 12:12:34 [id number] [address] [place] [address] 09/30/2019 14:08:49 09/30/2019 14:31:52 [id number] [address] [place] [address] 04/16/2022 11:00:26 04/16/2022 12:55:50 [id number] Maria Espinosa MD [address] [place] [address] 04/05/2023 09:52:04 04/05/2023 13:07:09 Pain of toe of left foot 0328109541 41023 M79.431 Initial reading of the Xray shows no [...] 1 [place]: [place] [employer] Patti Shayla Devine [id number] Patti Devine 04/05/2023 2 [employer] (MEDICARE SUPPLEMENT) Patti Devine [id number] Patti Devine Notes Date Note Type Note Provider Name and Address Organization Details Recorded Time 04/05/2023 text/html ToesReported by PatientHPIFor location, patient reportsleft. For quality, patient reportssharp. For severity, patient reportsmoderate. For timing, patient reportsacute. For aggravating factors, patient reportswalking. Maria Espinosa MD [address] [place], [address], [place] [facility] 04/05/2023 13:11:26 OBGyn Episode No OBEpisode recorded.
--- OUTSIDE RECORDS SUMMARY | 2025-11-01 07:40 | XMS_ITS | Encounter Summary ---
Author Organization [facility] Address [address] [place] [address] Care Team Providers Care Wood Heel Back Liner Name Role Phone Taras Shelton MD Primary Care Provider [phone] Taras Shelton MD Unavailable [phone] Meredith Liana DO Unavailable [phone] Encounter Details Date Type Department Care Team (Late st Contact Info) Description 01/22/2009 Hospital Visit [facility] OUTPATIENT Ashvin Lambert MD [address] [place] [address] Dr [address] [place] [address] Social History Tobacco Use Types Packs/Day Years [...] on filedocumented in this encounter Care Teams Wood Heel Back Liner Relationship Specialty Start Date End Date Taras Shelton MD [address] [place] [address] PCP - General 06/28/08 Taras Shelton MD [address] [place] [address] PCP - Hospital (change to care team) 09/30/09 08/18/16 Liana Harper DO [address] [place] [phone] PCP - Neuromusculoskeletal Med and OMM (change to care team) 04/14/11 07/01/16 documented as of this encounter
--- OUTSIDE RECORDS SUMMARY | 2025-11-01 07:40 | XMS_ITS | Data Portability ---
Author Organization [facility] Shayla Shepherd AONE [place] Address [address] [place] [address] Care Team Providers Care Network Engineering Advisor Name Role Phone RHEA PADRON Primary Care Provider [phone] RHEA PADRON Referring Provider [phone] Assessment Encounter Date Assessment Date Assessment LastModified [...] for repeat assessment for injection efficacy check [email or web address] Not available 05/25/2024 11:07:02 08/03/2024 08/03/2024 The injection wa s very helpful for her right foot hallux [...] physical examination, tests/diagnostic imaging, and treatment plan [email or web address] Not available 08/03/2024 11:13:07 11/09/2024 11/09/2024 73-year-old [...] may be helpful for control of swelling. Hmed-vkp-vhvtzay anti-inflammatory medications with appropriate GI precautions or Tylenol may be helpful in controlling intermittent symptoms of pain. An assistive device such as a cane may be helpful in unloading the joint. We also discussed other interventions including therapeutic injections. We discussed varieties of injections including cortisone, viscosupplementat ion, and PRP. We also discussed the possibility of surgical intervention if symptoms persist. We discussed arthroscopic intervention as well as total knee arthroplasty. [email or web address] Not available 11/09/2024 16:58:51 10/12/2025 10/12/2025 Chief Complaint : New Right [...] degrees. The knees are stable within those pkjnoq-yz-eflhye. Tender to palpation about the lateral joint [...] knee, 4 or more view 2024 025 [email or web address] [facility], [address], [place], [address], 10/12/2025 17:09:10 XR, knee, 3 view 2023 024 aamoro [facility], [address], [place], [address], 11/09/2024 13:57:22 XR, foot, 3 or more view 2023 024 [email or web address] [facility], [address], [place], [address], 05/25/2024 12:30:51 Medication Orders lidocaine (PF) 100 mg/5 mL (2 %) injection syringe [address] [facility], [address] [place], [place], [id number], 10/12/2025 17:09:10 triamcino lone acetonide 40 mg/mL suspensio n for injection [address] [facility], [address] [place], [place], [id number], 10/12/2025 17:09:10 meloxicam 15 mg tablet 2023 024 SHENA [facility]34, [address], [place], [id number], 11/09/2024 13:52:33 lidocaine (PF) 10 mg/mL (1 %) injection solution 2023 024 [email or web address] [facility]185, [address], [place], [id number], 05/25/2024 12:30:51 triamcino lone acetonide 40 mg/mL suspensio n for injection 2023 024 [email or web address] [facility]2635, [address], [place], [id number], 05/25/2024 12:30:51 Patient TargetsNo targets recorded. Patient InstructionsNo instructions recorded. Reason for Referral None Reported. Problems Name Problem SNOMED Code Status Onset Date Resolution Date Notes Provider Name and Address Organization Details Recorded Time Primary gonarthro sis, bilateral 912540498 Active 2018 Primary osteoarth ritis of both knees Not Available [facility] 5 23:59:17 Pain of knee region 5690930552 Active 2018 Chronic pain of left knee Not Available [facility] 5 23:59:17 Arthritis of joint of toe 421961918 Active [address],[facility], [place], [address] , [place] [facility] 4 12:26:32 Contusion of right knee 93167617426 426572 Active [address], [place], [address] , [place] [facility] 4 13:51:09 Osteoarth ritis of right knee joint 30931873138 9100 Active [address], [place], [address] , [place] [facility] 4 16:56:53 Problem Notes None recorded. Procedures Surgical History Date Name Laterality Status Provider Name and Address Organization Details Recorded Time 5 AJR Knee Injection completed [address], [place], [address], [place] [facility] 10/12/2025 17:08:39 4 AJF Foot Inj completed [address], [place], [address], [place] [facility] 05/25/2024 11:22:03 9 total knee replacement completed [facility] [place] [facility] 05/25/2024 11:31:22 Head or Neck Surgery completed [facility] [place] [facility] 05/25/2024 11:28:39 endoscopic carpal tunnel release completed Nesha Rojo [place] [facility] 11/09/2024 13:23:40 Imaging Results None recorded. Procedure Notes None recorded. Medical Equipment None Reported. Allergies Allergen ID Allergen Name Allergen Category Reaction Reaction Severity Criticality Documentation Date Start Date Code Code System Note Provider Name and Address Organization Details Recorded Time 453542 buprenorp nereyda / naloxone medicatio n Not available Not available Not available 08/21/20252018 01944 4 RxNorm Not Available [facility] 5 01:30:09 268669 oxymorpho ne medicatio n Not available Not available Not available 08/21/20252018 7814 RxNorm Not Available [facility] 5 01:30:10 006260 desiprami ne medicatio n Not available Not available Not available 08/21/20252018 3247 RxNorm Not Available [facility] 5 01:30:10 587226 honey bee venom environme nt anaphylax is Not available [facility] 10/12/20252015 14244 7 RxNorm Not Available [facility] [employer] - prod 5 17:27:51 029009 desiprami ne hydrochlo ride medicatio n swelling Not available [facility] 10/12/20252014 21660 4 RxNorm Swell ing and itchi ng Not Available [facility] - External [employer] - prod 5 17:27:51 96870 Norpramin medicatio n Not available Not available Not available 11/09/202457172 1 RxNorm Nesha Rojo [place], [place] [facility] 4 13:22:44 Medications Name Sig Start [...] Available Not Available No t Available multivit-mi s95-ztqko-i it K-Q10 active Not Available Not Available Not Available Vitals Date Recorded Body height Body mass index (BMI) Body weight Provider Name and Address Organization Details Last Updated DateTime 05/25/2024 157.48 cm 27.1 kg/m2 03425.67 g E[facility] [place] [facility], 05/25/2024 11:24:30 Date Recorded Body height Body mass index (BMI) Body weight Provider Name and Address Organization Details Last Updated DateTime 08/03/2024 157.48 cm 27.1 kg/m2 08024.[address] [place] [facility] 08/03/2024 10:54:56 Date Recorded Body height Body mass index (BMI) Body weight Provider Name and Address Organization Details Last Updated DateTime 10/12/2025 157.48 cm 26.9 kg/m2 40910.08 g Makeda Hicks [place] [facility] 10/12/2025 16:16:54 Date Recorded Body height Body mass index (BMI) Body weight Provider Name and Address Organization Details Last Updated DateTime 11/09/2024 157.48 cm 26.9 kg/m2 67551.08 g Nesha Rojo [place] [facility] 11/09/2024 13:22:51 Social History None recorded. Functional Status Question Answer Note LastModified by Organizat ion Details LastModified Time Do you use any illicit or recreational drugs? No [email or web address] Information not available 11/09/2024 Do you or have you ever used any other forms of tobacco or nicotine? No [email or web address] Information not available 10/12/2025 What is your level of alcohol consumption? None [email or web address] Information not available 11/09/2024 Are you currently employed? No [email or web address] Information not available 11/09/2024 Mental Status None recorded. Family History Relationship Description Onset Age of this Age Resolved Age Notes LastModified by Organization Details LastModified Time Father Arthritis [email or web address] Not availabl e 05/25/2024 11:25:18 Father History of cancer of unknown primary site [email or web address] Not available 11:25:39 Father Hypertensive disorder Not available 2023 11:26:13 Father Hyperlipidem ia [email or web address] Not available 2023 11:26:50 Brother Arthritis [email or web address] Not availab le 05/25/2024 11:25:18 Brother Family history of stroke [email or web address] Not available 2023 11:26:33 Brother Hyperlipidem ia [email or web address] Not available 2023 11:26:50 Mother Arthritis [email or web address] Not availabl e 05/25/2024 11:25:18 Mother History of hypertension [email or web address] Not available 11:27:25 Mother Scoliosis deformity of spine [email or web address] Not available 2023 11:27:37 Sister Arthritis [email or web address] Not availabl e 05/25/2024 11:25:18 Medical History Condition Response Anemia Y Reflux/GERD Y Gynecological HistoryNo gynecological history recorded. Obstetrics History GPAL:G 0 P 0 0 0 0 Past Encounters Encounter ID Performer Location Encounter Start Date Encounter Closed Date Diagnosis/Indication Diagnosis SNOMED-CT Code Diagnosis ICD10 Code Diagnosis IMO Codes Diagnosis Note [id number] OMKAR RAYGOZA PA-C [address] [address] 05/25/2024 10:30:35 05/25/2024 11:08:35 Pain in right foot 0458635740 47523 M79.671 Arthritis of joint of toe 597124257 M19.079 Additional diagnosis detail: 1st MTP arthritis [id number] OMKAR RAYGOZA PA-C SERJIO [address] [address] 08/03/2024 10:46:30 08/03/2024 11:12:28 Arthritis of joint of toe 071596333 M19.079 Additional diagnosis detail: 1st MTP arthritis [id number] CLAIR BARBOSA [facility] [address] [place] [address], it[place] [address] [place] [address] 11/09/2024 12:48:18 11/09/2024 13:57:22 Pain of right knee region 6195284161 16654 M25.561 17047039 History of fall 42035604 9 Z91.81 1689523 Contusion of right knee 8511505083 7721448 S80.01XA 956831 Osteoarthr itis of right knee joint 8316236106 35349 M17.11 [id number] CLAIR Hodgson [facility] [address] [facility] ite [address] [place] [address] 10/12/2025 15:40:54 10/12/2025 16:15:14 Pain of right knee region 6731639091 14185 M25.561 69812736 Osteoarthr itis of right knee joint 9442841935 72818 M17.11 0362057 Health Concerns Section Related Observation LastModified by Organization Detai ls LastModified Time None Recorded Concern Status LastModified by Organization Details LastModified Time None Recorded Advance Directives Directive None Recorded Payers Insurance Date Sequence Insurance Name Policy Number Policy Martins Covered Member ID Martins Member ID Guarantor Name 10/29/2025 1 [place]: [employer] Patti Devine [id number] Patti Devine 10/29/2025 2 AARP (MEDICARE SUPPLEMENT) Patti Devine [id number] Patti Devien Notes Date Note Type Note Provider Name [...] OMKAR RAYGOZA PA-C [address], [place], [address], [place] [facility] 05/25/2024 12:26:52 08/03/2024 text/html Patti Devine [...] She does not smoke or drink alcohol. [address], [place], [address], [place] [facility] 08/03/2024 11:13:17 11/09/2024 text/html ROS as [...] EtOH, tobacco or drug use. Never smoker. [address], [place], [address], [place] [facility] 11/09/2024 16:59:31 OBGyn Episode No OBEpisode recorded.
--- OUTSIDE RECORDS SUMMARY | 2025-11-01 07:40 | XMS_ITS | Encounter Summary ---
Author Organization [facility] Address [address] [place] [address] Care Team Providers Care Rustic Terrazzo Setter Name Role Phone Taras Shelton MD Primary Care Provider [phone] Taras Shelton MD Unavailable [phone] Meredith Liana DO Unavailable [phone] Encounter Details Date Type Department Care Team (Late st Contact Info) Description 04/18/2009 Hospital Visit [facility] OUTPATIENT Ashvin Lambert MD [address] [place] [address] Dr [address] [place] [address] Social History Tobacco Use Types Packs/Day Years [...] GLOMERULAR FILTRATION RATE (04/25/2009 2:10 PM EDT) [facility] EGFR Non- > 60 >60 N[facility]X EGFR [...] ORDERABLES Final Resu lt Performing Organization Address [facility] de Phone Number [address], [address] [address] * TYPE AND SCREEN-30 DAY (04/25/2009 2:10 PM EDT) [facility] Results Blood Bank SEE BELOW [facility] Comment: TYPE AND SCREEN 30-DAY: -TYPE A NEG -ANTIBODY SCREEN NEGATIVE 04/25/2009 2:10 PM EDT 04/25/2009 3:37 PM EDT Ashvin Lambert MD BLOOD BANK ORDERABLES Final Res ult Performing Organization Address [facility] de Phone Number [address], [address] [place] [address] * (ABNORMAL) CBC WITH DIFF (04/25/2009 2:10 [...] HEMATOLOGY ORDERABLES Final Res ult [facility] [address], [address] [place] [address] * BASIC METABOLIC PANEL (04/25/2009 2:10 PM [...] CHEMISTRY ORDERABLES Final Resu lt [facility]X [address], [address] [place] [address] documented in this encounter Visit Diagnoses Not on filedocumented in this encounter Care Teams Rustic Terrazzo Setter Relationship Specialty Start Date End Date Taras Shelton MD [address] [place] [address] PCP - General 06/28/08 Taras Shelton MD [address] [place] [address] PCP - Hospital (change to care team) 09/30/09 08/18/16 Liana Harper DO [address] [place] [phone] PCP - Neuromusculoskeletal Med and OMM (change to care team) 04/14/11 07/01/16 documented as of this encounter
--- OUTSIDE RECORDS SUMMARY | 2025-11-01 07:40 | XMS_ITS | Clinical Summary ---
Author Organization [facility] Address [address] [place] [address] Phone Care Team Providers Care Vp Product Management Name Role Phone Anny Sanchez MD Primary Care Provider [phone] Allergies Active Allergy Reactions Criticality Noted Date [...] deficiency 01/08/2020 Chronic obstructive pulmonar y disease ([facility] V24, [facility] V28) 08/23/2019 Nocturnal hypoxia 08/23/2019 Spinal [...] Encounters Date Type Department Care Team Description 10/29/2025 1:45 PM EST Ancillary Procedure Pulmonology - [address] [phone] ILD (interstitial lung disease) ([facility] [place]24, [facility] V28) 10/29/2025 1:00 PM EST Office Visit Pulmonology - [address] [phone] Moo Lozano MD ILD (interstitial lung disease) ([facility] [place] [place] V24, [facility] V28) (Primary Dx); Hypoxemia 08/27/2025 1:20 PM EDT - 08/27/2025 11:59 PM EDT Hospital Encounter Radiology Department - [address] [address] Spinal stenosis, cervical region; Postlaminectomy syndrome, not elsewhere classified; Radiculopathy, cervical region; Cervicocranial syndrome Discharge Disposition: Home or Self Care from Last 3 Months Immunizations Immunization Administration [...] 12 & older) Biv alent, COVID-19 08/07/2024,07/20/2023 C3L3B Digital Covid-19 Bivalent, Or iginal + Ba.1 (Non-US Trademark COMIRNATY Bivalent) 07/20/2023 C3L3B Digital SARS-CoV-2 COVID-19, mRNA, LNP-S, preservative free 09/05/2021,02/17/2021,01/27/2021 [...] TUNNEL RELEASE Bilateral OTHER SURGICAL HISTORY 2007 [place] ARTHRD ANT INTERBODY MIN DSC CRV BELOW [...] care for your loved ones. For example, early childhood teacher or elderly care for an older [...] EST Travel History Travel Start Travel End [facility] 10/25/2025 10/25/2025 Obstetrics History Para Term AB IAB SAB [...] Mass Index 26.59 10/29/2025 1:03 PM EST Plan of Treatment Upcoming Encounters Date Type Department Care Team (Late st Contact Info) Description 01/29/2026 8:45 AM EST Office Visit Adult Medicine [facility] [address] [place] [address] Anny Sanchez MD [address] [place] [address] 10/31/2026 11:45 AM EST Office Visit Pulmonology - [address] [place] [address] Moo Lozano MD [address] [place] [phone] Health Maintenance Due Date Last Done Comments Zoster Vaccines (2 of 2) 02/06/2022 12/12/2021, 04/2012 Osteoporosis Screening (Bone Density Screening) 11/07/2022 Medicare Annual Wellness Visit 08/08/2025 08/08/2024 Social Influencers of Health Screening 01/30/2026 01/30/2025 Falls Risk Assessment 02/05/2026 02/05/2025, 024 COVID-19 Vaccine (9 - Pfizer risk season) 2026 08/22/2025, 03/14/2025, 08/07/2024, Additional history [...] 05/03/2017, 01/02/2016 Depression Screening Completed 01/30/2025, 08/08/20 Influenza Vaccine Completed 08/22/2025, , 07/20/2024, Additional [...] this topic Medical Devices Implanted Type Area Sonography Technician Device Identifier Shelf Expiration Date Model / Serial / Lot Joints Knee Joints Knee Left: Knee Spinal Hardware Spinal Hardware N/A: Back Procedures Procedure Name Priority Date/Time Associated Diagnosis Comments PULMONARY FUNCTION TESTING Routine 10/29/2025 1:39 PM EST ILD (interstitial lung disease) ([facility] V24, [facility] V28) MR CERVICAL SPINE WO CONTRAST Routine 08/27/2025 2:24 PM EDT Spinal stenosis, cervical region Postlaminectomy syndrome, not elsewhere classified Radiculopathy, cervical region Cervicocranial syndrome LIPID PANEL WITH REFLEX TO DIRECT LDL Routine 03/21/2025 9:17 AM EDT Mixed hyperlipidemia MG MAMMO DIGITAL SCREENING W DOYLE BILAT Routine 11/17/2024 9:50 AM EST Encounter for screening mammogram for breast cancer DEPRESSION SCREENING Routine 08/08/2024 HEPATITIS C SCREENING Routine 06/15/2020 COLONOSCOPY Routine 01/17/2020 from Last 3 Months or Most Recently Relevant to Health Maintenance Results * Pulmonary function testing: Carbon Monoxide [...] Moo Lozano MD PFT ORDERABLES Final Result * MR Cervical Spine wo Contrast (08/27/2025 [...] Signed Date: 08/29/2025 20:12 ET Workstation ID: [id number] Transcribed By: Self Edit Transcribed Date: 08/29/2025 [...] Signed Date: 08/29/2025 20:12 ET Workstation ID: [id number] Transcribed By: Self Edit Transcribed Date: 08/29/2025 17:[address] DO IMG MRI PROCEDURES Final Result * Lipid panel with reflex to direct LDL (03/21/2025 9:17 AM EDT) Cholesterol 165 0 - 200 mg/dL LAB CHEMISTRY METHOD 03/21/2025 12:30 PM EDT [facility] Triglycerides 141 0 - 150 mg/dL LAB CHEMISTRY METHOD 03/21/2025 12:30 PM [facility] HDL 52 >=40 mg/dL LAB CHEMISTRY METHOD 03/21/2025 12:30 PM [facility] LDL Calculated 85 0 - 100 mg/dL LAB CHEMISTRY METHOD 03/21/2025 12:30 PM [facility] VLDL Cholesterol Yunior 28.2 mg/dL LAB CHEMISTRY METHOD 03/21/2025 12:30 PM [facility] Non HDL Chol. (LDL+VLDL) 113 <145 mg/dL LAB CHEMISTRY METHOD 03/21/2025 12:30 PM [facility] Chol/HDL Ratio 3.2 0.0 - 4.4 LAB CHEMISTRY METHOD 03/21/2025 12:30 PM [facility] Blood Venous blood specimen / Unknown Venipuncture / Unknown 03/21/2025 9:17 AM EDT 03/21/2025 9:17 AM EDT us Meredith STONE LAB BLOOD ORDERABLES Final Re sult [facility] [address] [facility] [place] [address], [place] [phone] * MG Mammo Digital Screening w Doyle [...] Signed Date: 11/17/2024 16:51 ET Workstation ID: [id number] Transcribed By: Self Edit Transcribed Date: 11/17/2024 [...] Monet Espinal Reviewed and Electronically Signed By: Moent Espinal Signed Date: 11/17/2024 16:51 ET Workstation ID: [id number] Transcribed By: Self Edit Transcribed Date: 11/17/2024 [...] Recently Relevant to Health Maintenance Insurance MEDICARE [facility] Advance Directives Documents on File Type Date Recorded Patient Rackman Expl anation Health Care Decision (hx) 06/09/2019 AD BALDERRAMA DIRECTIVE Health Care Decision (hx) 06/09/2019 AD BALDERRAMA DIRECTIVE Health Care Decision (hx) 06/09/2019 AD BALDERRAMA DIRECTIVE Care Teams Vp Product Management Relationship Specialty Start Date End Date Anny Sanchez MD [address] [place] [address] PCP - General Internal Medicine 10/11/15
--- OUTSIDE RECORDS SUMMARY | 2025-11-01 07:40 | XMS_ITS | Clinical Summary ---
Author Organization [facility] Address [address] [place] [address] Care Team Providers Care Specialist Physicians Name Role Phone Taras Shelton MD Primary Care Provider Medications No known medications Active Problems No known active problems Immunizations Immunization Administration Dates Next Due Pfizer Purple Cap(12+) Covid -19,mrna,lnp-s,pf,0.3ml ([id number]) 02/17/2021,01/27/2021 Social History Tobacco Use Types Packs/Day Years Used Date Smoking Tobacco: Never Assessed Comments Unknown Sex and Gender Information Value Date Recorded Sex Assigned at Not on file Legal Sex Female 6:51 AM EST Gender Identity Not on file Sexual Orientation Not on file Plan of Treatment Not on file Care Teams Specialist Physicians Relationship Specialty Start Date End Date Taras Shelton MD [address] [place] [address] PCP - General 06/28/08
--- OUTSIDE RECORDS SUMMARY | 2025-11-01 07:40 | XMS_ITS | Encounter Summary ---
Author Organization [facility] Address [address] [place] [address] Care Team Providers Care Fermenting Cellars Supervisor Name Role Phone Taras Shelton MD Primary Care Provider [phone] Taras Shelton MD Unavailable [phone] Liana Harper DO Unavailable [phone] Encounter Details Date Type Department Care Team [...] on filedocumented in this encounter Care Teams Fermenting Cellars Supervisor Relationship Specialty Start Date End Date Taras Shelton MD [address] [place] [address] PCP - General 06/28/08 Taras Shelton MD [address] [place] [address] PCP - Hospital (change to care team) 09/30/09 08/18/16 Liana Harper DO [address] [place] [phone] PCP - Neuromusculoskeletal Med and OMM (change to care team) 04/14/11 07/01/16 documented as of this encounter
--- NOTE | 2025-11-01 07:43 | A.PHYSOV_ITS ---
Vital Signs 11/01/25 07:46 Height 5 ft 2 in Weight 145 lb BMI 26.5 Intake Visit Reasons: Left hip injection Intake Note: Patient is a 74 year old female in office today for a Left Hip Injection Hospice Registered Nurse Required: No Allergies buprenorphine (From SUBOXONE) Allergy (Unknown, Verified 11/01/25 07:46) STOMACH UPSET desipramine (From NORPRAMIN) Allergy (Unknown, Verified 11/01/25 07:46) HIVES naloxone (From SUBOXONE) Allergy (Unknown, Verified 11/01/25 07:46) STOMACH UPSET HPI Comments Details: History of Present Illness The patient is a 74-year-old female presenting for a follow-up visit for chronic pain. She has a history of chronic pain involving her entire back, a C4-C7 fusion, and a fusion from T11 to S1. She has a spinal cord stimulator, which provides effective control for her left-sided lumbar radicular symptoms but does not alleviate her persistent thoracic and neck pain with cervical radiculitis. Past treatments have included multiple injections in her cervical, thoracic, and lumbar spine. She has had good benefit from prior CMC joint injections and several T1-T2 epidural steroid injections. A trial of buprenorphine patches was not found to be useful. She continues to use topical diclofenac on her hands and supplements with turmeric. A cervical spine MRI from August 27, 2025, revealed postoperative changes from C4-C7, a left paramedian C3-C4 disc extrusion, mild spinal stenosis at C3- C4, severe lateral recess stenosis at C4, and compression of the anterior spinal cord. She has consulted with a surgeon, Dr. Mcgee, who recommended fusing C3- C4 and removing the existing plate from the prior C4-C7 surgery. The patient agrees that the surgery is necessary due to unbearable neck pain and plans to schedule it after . She reports a new issue of left hip pain, which flared up along with her left knee. The hip pain is worse with walking up and down stairs and sometimes when lying on that side. She reports no groin pain. She previously received an injection for her knee pain from an orthopedic clinic. Pain Description - Location: The patient experiences chronic pain throughout her entire back, including cervical, thoracic, and lumbar regions, as well as persistent neck pain with cervical radiculitis. - Location: She has a new onset of left hip pain, specifically in the area underneath her spinal cord stimulator battery, over the greater trochanter. - Severity: Her neck pain is described as unbearable, prompting her to decide on surgery. - Exacerbating Factors: Left hip pain is worsened by walking up and down stairs and sometimes by lying on her left side. - Progression: The hip pain started when her knee pain flared up and has not improved. Results - Cervical Spine MRI (08/27/2025): Showed postoperative changes at C4-C7, a left paramedian lateral extrusion of the C3-C4 disc, mild spinal stenosis at the C3- C4 level, severe stenosis of the left lateral recess at C4, and compression of the anterior surface of the spinal cord. [facility] Medical History (Updated 11/01/25 @ 08:[address] DO) Trochanteric bursitis of left hip Left hip pain Surgical History (Updated 10/24/25 @ 13:08 by Herminia John MA) History of knee replacement (Unknown) History of carpal tunnel surgery (Unknown) Status post cervical spinal fusion (Unknown) History of lumbar fusion (Unknown) History of back surgery (Unknown) Social History (Updated 11/01/25 @ 07:47 by Herminia John MA) Household Members: None Alcohol intake: current Alcohol intake frequency: does not drink Patient Tobacco Use Status: Never used Tobacco Current occupational status: retired Review of Systems Narrative Review of Systems - Musculoskeletal: Reports chronic pain in the entire back (cervical, thoracic, lumbar), left hip pain, and left knee pain. - Musculoskeletal: Denies groin pain. - Neurological: Reports left-sided lumbar radicular symptoms and cervical radiculitis. Physical Exam Exam Exam: Physical Exam - Musculoskeletal: On examination of the left hip, there is tenderness over the greater trochanter. - Musculoskeletal: Pain is elicited with manual manipulation of the hip. Vital Signs: BMI result Body Mass Index 26.5 Office Procedures AMB Hip Injection AMB Hip Injection Procedure Details: Patient was placed in a lateral recumbent position with the left side up. Point of maximum tenderness over greater trochanter was located and marked. Skin was cleansed with alcohol. 3.5 in 22 gauge spinal needle was introduced percutaneously and advanced toward the greater trochanter. Once in place total volume of 5 cc containing 40 mg of triamcinolone and 2% lidocaine was injected after negative aspiration for blood and without resistance. Patient tolerated procedure very well without complications. Hip (Bursa) Injection - : Left All charges added?: Procedure code (CPT) selection complete Office Meds Kenalog 40 mg/mL suspension for injection Performing Provider: Vini Street DO [facility] Administered by: Vini Street DO on 11/01/25 12:43 Dose Route Admin Location Dispensed Lot Number Expiration Date [facility] Manager Of Software 40 mg intrabursal 1 mL [id number] [employer] Total Dispensed Waste 1 mL 0 % lidocaine (PF) 20 mg/mL (2 %) injection solution Performing Provider: Vini Street DO Performing Location: [facility] Administered by: Vini Street DO on 11/01/25 12:43 Dose Route Admin Location Dispensed Lot Number Expiration Date [facility] Manager Of Software 80 mg intrabursal 5 mL [id number] [employer] Total Dispensed Waste 5 mL 20 % Assessment & Plan Assessment & Plan (1) Left hip pain: Code(s): M25.552 - Pain in left hip Category: Medical (2) Trochanteric bursitis of left hip: Code(s): M70.62 - Trochanteric bursitis, left hip Category: Medical Plan Pain Management - Affect: The patient expresses being nervous about her upcoming neck surgery and the facility where it will be performed. - Analgesia: Current treatments include a spinal cord stimulator for left lumbar radicular symptoms, topical diclofenac on her hands, and turmeric supplements. - Analgesia: She previously had good benefit from CMC joint injections and T1-T2 epidural steroid injections. - Analgesia: Buprenorphine patches were tried but were not effective. - Activities of Daily Living: Hip pain interferes with walking up and down stairs. - Activities of Daily Living: An altered gait due to knee problems is thought to be affecting other things. Plan Patient was informed and verbally consented to the use of an ambient scribe for clinic note documentation during this visit. 1. Cervicalgia With Radiculopathy And Myelopathy The patient's unbearable neck pain is attributed to findings on her recent cervical spine MRI, which showed a C3-C4 disc extrusion with spinal cord compression superior to her previous C4-C7 fusion. She has consulted with a surgeon who recommended a C3-C4 fusion with removal of the existing hardware. The patient is in agreement with this surgical plan and intends to schedule it for after . Reassurance was provided regarding her concerns about the procedure and surgical location. 2. Left Hip Pain The patient's new left hip pain is localized over the greater trochanter, ex acerbated by stairs and side-lying, and is most consistent with trochanteric bursitis, although referred pain from her extensive lumbar fusion history remains a possibility. The plan is to proceed with a left greater trochanteric bursa injection today for both diagnostic and therapeutic purposes. I will be requesting x-ray imaging of her pelvis and left hip. 3. Chronic Pain Syndrome The patient will continue to manage her diffuse chronic pain with her existing spinal cord stimulator for left lumbar radicular symptoms, topical diclofenac, and turmeric supplements. Buprenorphine patches were ineffective and are not part of the current plan. Discussion Notes I reviewed the patient's recent cervical spine MRI findings with her, showing a disc extrusion at C3-C4 with spinal cord compression, which is located above her previous C4-C7 fusion. We discussed the surgical recommendation from Dr. Mora, which involves a C3-C4 fusion and removal of the old plate. I addressed her anxieties regarding the surgical venue, [facility], and explained that it is well-equipped for these procedures and that her surgeon has extensive experience. I also reassured her that removing the plate is safe, as the bone fusion is solid and the plate is no longer functionally necessary. We also discussed her new left hip pain. Based on her symptoms and point tenderness on exam, I explained that the most likely diagnosis is greater trochanteric bursitis. I recommended and she consented to a left greater trochanteric bursa injection to be performed today in the office. Patient Instructions - You will proceed with scheduling your neck surgery with Dr. Mora's office for a date after this coming . - A steroid injection was performed on your left hip today to help with the pain, which is likely bursitis. This should help with pain when walking on stairs or lying on your side. - Continue to use your topical diclofenac cream and turmeric supplements as you have been for pain. - You canceled a previous neck injection because you could not find a tractor driver teamster. Please remember that for future procedures, you must have a responsible adult drive you, as services like [employer] or Lyft are not permitted. Orders: Orders XR hip LT w PEL1V Today M25.552 - Pain in left hip, M70.62 - Trochanteric bursitis, left hip AMB Hip/Bursa Injection Today M25.552 - Pain in left hip, M70.62 - Trochanteric bursitis, left hip Coding Level of Care Code Est Pt Level 4 (08656) Complex visit Add On G2211 Diagnoses Left hip pain M25.552 Trochanteric bursitis of left hip M70.62 CPT Codes AMB Hip Injection - Hip/Bursa Injection - 14426: Left ([id number])
[2025-11-01 07:46] VITALS: BMI 26.5
== END 2025-11-01 08:17 | disposition home or self-care (01) ==
LOC: HO.HPHYS 07:38
PROVIDERS: PCP Internal Medicine; Visit Provider Physical Medicine & Rehabilitation
DX: M70.62 Trochanteric bursitis, left hip (principal); M25.552 Pain in left hip
CPT/HCPCS: 20610; 99214

== ENCOUNTER 2025-11-01 07:37 | Outpatient (REF) | payer MEDICARE, SELFPAY ==
--- NOTE | ~2025-11-01 | XR_ITS ---
EXAMINATION: XR HIP, LEFT CLINICAL INFORMATION: M25.552 - Pain in left hip COMPARISON: None available. TECHNIQUE: AP view pelvis. AP and oblique views of the left hip. FINDINGS: Joint space narrowing and sclerosis along the articular surface of the left coxofemoral joint. Marginal osteophyte formation and the femoral head/neck, left femur. Degenerative changes in the symphysis pubis. Mild degenerative changes in the right coxofemoral joint. Metallic hardware in the lower lumbar spine with screws anchors in the sacroiliac joints bilaterally. There is bone grafting in the lower lumbar spine and likely bilateral laminectomies no fully included in the [id number]. Metallic reservoir overlapping the left iliac bone with 2 electrodes towards the left lateral aspect of the lumbar spine no fully included in the [id number]. XR/XR hip LT w PEL1V IMPRESSION: Osteoarthritis/osteoarthrosis, moderate, left coxofemoral joint. Electronically signed by: Clive Avery MD 11/01/2025 09:48 AM RIYA
== END 2025-11-01 07:38 | disposition home or self-care (01) ==
LOC: HO.XRAY 07:37
PROVIDERS: PCP Internal Medicine; Visit Provider Physical Medicine & Rehabilitation
DX: M70.62 Trochanteric bursitis, left hip (principal); M54.12 Radiculopathy, cervical region; M54.2 Cervicalgia; G95.9 Disease of spinal cord, unspecified; G89.4 Chronic pain syndrome
CPT/HCPCS: 20610; 73502; 99212; J2003; J3301

== ENCOUNTER → 2025-11-01 09:36 | Outpatient (BNV) | payer MEDICARE, SELFPAY | PROVIDERS: PCP Internal Medicine; Visit Provider Radiology Diagnostic Radiology | DX: M16.12 Unilateral primary osteoarthritis, left hip (principal) | CPT/HCPCS: 73502 ==

== ENCOUNTER 2025-11-07 07:57 | Outpatient (AMB) | payer MEDICARE, SELFPAY ==
--- NOTE | 2025-11-07 08:09 | A.PHYSOV ---
Vital Signs 11/07/25 08:10 Height 5 ft 2 in Weight 145 lb BMI 26.5 Intake Visit Reasons: right shoulder injection Intake Note: Patient is a 74 year old female in office for a right shoulder injection. Patient presents stating that she does not want that injection today. She would like to discuss here right knee pain. Patient states she saw [facility] and they took an x-ray but did not do anything . Parking Ramp Attendant Required: No Allergies buprenorphine (From SUBOXONE) Allergy (Unknown, Verified 11/07/25 08:10) STOMACH UPSET desipramine (From NORPRAMIN) Allergy (Unknown, Verified 11/07/25 08:10) HIVES naloxone (From SUBOXONE) Allergy (Unknown, Verified 11/07/25 08:10) STOMACH UPSET HPI Comments Details: History of Present Illness The patient is a 74-year-old female presenting for a follow-up visit for chronic pain. She has a history of chronic pain involving her entire back, a C4-C7 fusion, and a fusion from T11 to S1. She has a spinal cord stimulator, which provides effective control for her left-sided lumbar radicular symptoms but does not alleviate her persistent thoracic and neck pain with cervical radiculitis. Past treatments have included multiple injections in her cervical, thoracic, and lumbar spine. She has had good benefit from prior CMC joint injections and several T1-T2 epidural steroid injections. A trial of buprenorphine patches was not found to be useful. She continues to use topical diclofenac on her hands and supplements with turmeric. A cervical spine MRI from August 27, 2025, revealed postoperative changes from C4-C7, a left paramedian C3-C4 disc extrusion, mild spinal stenosis at C3-C4, severe lateral recess stenosis at C4, and compression of the anterior spinal cord. She has consulted with a surgeon, Dr. Mcgee, who recommended fusing C3-C4 and removing the existing plate from the prior C4-C7 surgery. The patient agrees that the surgery is necessary due to unbearable neck pain and plans to schedule it after . She reports a new issue of left hip pain, which flared up along with her right knee. The hip pain is worse with walking up and down stairs and sometimes when lying on that side. She reports no groin pain. She previously received an injection for her knee pain from an orthopedic clinic on 10/19/2025 which helped only for a couple of weeks. She is asking of would be possible to inject her knee again. Today's appointment was supposed to be for the right shoulder subacromial injection to be repeated, however she was told by spine surgery that her shoulder pain is primarily related to her neck and she decided to postpone it. Left hip is feeling better after greater trochanteric bursa injection during her last visit. Left hip x-rays were done on 11/01/2025 images were independently reviewed and they were consistent with moderate left degenerative joint disease. Pain Description - Location: The patient experiences chronic pain throughout her entire back, including cervical, thoracic, and lumbar regions, as well as persistent neck pain with cervical radiculitis. - Location: She has a new onset of left hip pain, specifically in the area underneath her spinal cord stimulator battery, over the greater trochanter. - Severity: Her neck pain is described as unbearable, prompting her to decide on surgery. - Exacerbating Factors: Left hip pain is worsened by walking up and down stairs and sometimes by lying on her left side. - Progression: The hip pain started when her knee pain flared up and has not improved. Results - Cervical Spine MRI (08/27/2025): Showed postoperative changes at C4-C7, a left paramedian lateral extrusion of the C3-C4 disc, mild spinal stenosis at the C3-C4 level, severe stenosis of the left lateral recess at C4, and compression of the anterior surface of the spinal cord. [facility] Medical History (Updated 11/07/25 @ 08:[address] DO) Cervical radiculitis Right knee DJD Trochanteric bursitis of left hip Left hip pain Surgical History (Updated 10/24/25 @ 13:08 by Herminia John MA) History of knee replacement (Unknown) History of carpal tunnel surgery (Unknown) Status post cervical spinal fusion (Unknown) History of lumbar fusion (Unknown) History of back surgery (Unknown) Social History (Updated 11/01/25 @ 07:47 by Herminia John MA) Household Members: None Alcohol intake: current Alcohol intake frequency: does not drink Patient Tobacco Use Status: Never used Tobacco Current occupational status: retired Review of Systems Narrative Review of Systems - Musculoskeletal: Reports chronic pain in the entire back (cervical, thoracic, lumbar), left hip pain, and right knee pain. - Musculoskeletal: Denies groin pain. - Neurological: Reports left-sided lumbar radicular symptoms and cervical radiculitis. Patient denies any change in bowel bladder habits. She denies any fever or chills Physical Exam Exam Exam: Physical Exam She appears to be in no acute distress, appropriately conversant oriented. Gait was antalgic on the right side. Pain with palpation over lateral joint line of the right knee. Crepitance with flexion and extension. Pronounced valgus deformity. No ligamentous instability, no significant effusion. Neurological examination was nonfocal. Vital Signs: BMI result Body Mass Index 26.5 Assessment & Plan Assessment & Plan (1) Left hip pain: Code(s): M25.552 - Pain in left hip Category: Medical (2) Trochanteric bursitis of left hip: Code(s): M70.62 - Trochanteric bursitis, left hip Category: Medical (3) Right knee DJD: Code(s): M17.11 - Unilateral primary osteoarthritis, right knee Category: Medical (4) Cervical radiculitis: Code(s): M54.12 - Radiculopathy, cervical region Category: Medical Plan Pain Management - Affect: The patient expresses being nervous about her upcoming neck surgery and the facility where it will be performed. - Analgesia: Current treatments include a spinal cord stimulator for left lumbar radicular symptoms, topical diclofenac on her hands, and turmeric supplements. - Analgesia: She previously had good benefit from CMC joint injections and T1-T2 epidural steroid injections. - Analgesia: Buprenorphine patches were tried but were not effective. - Activities of Daily Living: Hip pain interferes with walking up and down stairs. - Activities of Daily Living: An altered gait due to knee problems is thought to be affecting other things. Plan Patient was informed and verbally consented to the use of an ambient scribe for clinic note documentation during this visit. 1. Cervicalgia With Radiculopathy And Myelopathy The patient's unbearable neck pain is attributed to findings on her recent cervical spine MRI, which showed a C3-C4 disc extrusion with spinal cord compression superior to her previous C4-C7 fusion. She has consulted with a surgeon who recommended a C3-C4 fusion with removal of the existing hardware. The patient is in agreement with this surgical plan and intends to schedule it for after [place]. Reassurance was provided regarding her concerns about the procedure and surgical location. 2. Left Hip Pain Hip x-rays were reviewed and were consistent with moderate degenerative changes. She had good relief with left GT bursa injection. 3. Chronic Pain Syndrome The patient will continue to manage her diffuse chronic pain with her existing spinal cord stimulator for left lumbar radicular symptoms, topical diclofenac, and turmeric supplements. Buprenorphine patches were ineffective and are not part of the current plan. 4. She is asking for repeat injection of the right knee. Normally I would not recommend such injection at such a short interval. However, to provide her with better pain control over the holidays, I will be willing to repeat her right knee corticosteroid injection next week. She will return for the procedure. Discussion Notes Trochanteric bursa injections will be repeated in the future as necessary. She will return next week for right knee intra-articular injection to provide her with better pain control during the holidays. All questions were answered to her satisfaction. Coding Level of Care Code Est Pt Level 3 (32557) Complex visit Add On G2211 Diagnoses Left hip pain M25.552 Trochanteric bursitis of left hip M70.62 Right knee DJD M17.11 Cervical radiculitis M54.12
[2025-11-07 08:10] VITALS: BMI 26.5
== END 2025-11-07 08:47 | disposition home or self-care (01) ==
LOC: HO.HPHYS 07:58
PROVIDERS: PCP Internal Medicine; Visit Provider Physical Medicine & Rehabilitation
DX: M25.552 Pain in left hip (principal); M70.62 Trochanteric bursitis, left hip; M17.11 Unilateral primary osteoarthritis, right knee; M54.12 Radiculopathy, cervical region
CPT/HCPCS: 99213; G2211

== ENCOUNTER → 2025-11-07 07:57 | Outpatient (BNVA) | payer MEDICARE, SELFPAY | PROVIDERS: PCP Internal Medicine; Visit Provider Physical Medicine & Rehabilitation | DX: M25.552 Pain in left hip (principal); M70.62 Trochanteric bursitis, left hip; M17.11 Unilateral primary osteoarthritis, right knee; M54.12 Radiculopathy, cervical region | CPT/HCPCS: 99212 ==